=== PATIENT | female | born 1985 | race Caucasian/White ===

== ENCOUNTER 2018-05-22 08:27 | Outpatient (CLI) | payer MEDICAID ==
[~2018-05-22] VITALS: Ht 172.7 cm; Wt 106.6 kg
[2018-05-22] MEDS ORDERED: PREN-53 PO (11:13)
[2018-05-22] MEDS ORDERED: CITA40TA19 PO (11:13)
== END 2018-05-22 11:17 | disposition home or self-care (01) ==
LOC: PREOP 08:27
PROVIDERS: ATTEND Obstetrics & Gynecology
DX: Z01.818 Encounter for other preprocedural examination (principal)

== ENCOUNTER 2018-05-29 06:05 | Inpatient (IN) | payer MEDICAID ==
[~2018-05-29] VITALS: Ht 172.7 cm; Wt 109.8 kg
[~2018-05-29 06:05] MED LIST: CITA40TA19 PO; CITRIC ACID/SOB CIT (BICITRA) 30 ML UDC ONE; FAMOTIDINE 20MG/2ML IV (PEPCID) ONE; LACTATED RINGERS 1,000 ML IV ONE; METOCLOPRAMIDE INJ 10 MG/2 ML (REGLAN) ONE; PREN-53 PO; ceFAZolin 2 GM IV Premixed 50 ML ONE
--- NOTE | 2018-05-29 06:10 | NUR ---
NURYS SAUCEDA presented to unit via ambulation from home, accompanied by SO, FOR REPEAT SECTION. NURYS SAUCEDA weighed, gowned, voided, and to bed. EFHM and TOCO applied, VS taken. NURYS SAUCEDA oriented to bed controls, call light, TV, heat, and A/C controls. Pt. denies leaking of fluid, vaginal bleeding, and confirms movement.
--- OUTSIDE RECORDS SUMMARY | 2018-05-29 06:11 | XMS REPORT ---
Author Author DOROTA IBARRA Organization [facility] Address [address] [place] [address] Care Team Providers Care Mid Level Practitioner Name Role Phone DOROTA IBARRA Unavailable PROBLEMS Type Condition ICD9-CM Code [id number] Code Onset Dates Condition Status SNOMED Code Problem Previous section complicating O34.219 Active 564082062 Problem Attention deficit hyperactivity disorder (ADHD), predominantly inattentive type F90.0 Active 02416538 Problem Moderate episode of recurrent major depressive disorder F33.1 Active [id number] ALLERGIES No Information ENCOUNTERS Encounter Location Date Diagnosis [facility] [id number] [place] [address] 95589- 2796 Jan, [facility] [id number] [place] [address] 84742 -8741 Jan, Sore throat J02.9 [facility] [id number] [place] [address] 11162- 7133 27 Dec, 2017 care in second trimester Z34.92 ; 19 weeks gestation of Z3A.19 and Previous section complicating O34.219 [facility] [id number] [place] [address] 35504- 5667 Dec, [facility] [id number] [place] [address] 07430- 2295 Nov, 12 weeks gestation of Z3A.12 ; First trimester Z34.91 and Previous section complicating O34.219 [facility] [id number] [place] [address] 63287- 0611 Nov, [facility] [id number] [place] [address] 23251- 2627 Nov, [facility] [address] [place] [address] 71201- 9075 Nov, Vaginal discharge N89.8 ; First trimester Z34.91 and 11 weeks gestation of Z3A.11 [facility] [id number] [place] [address] 78122- 7253 Nov, [facility] [id number] [place] [address] 64280- 7180 Nov, [facility] [id number] [place] [address] [id number] Nov, Dental examination Z01.20 [facility] [id number] [place] [address] 61623- 6389 Oct, [facility] [id number] [place] [address] 70426- 6049 Oct, 8 weeks gestation of Z3A.08 ; Normal in multigravida Z34.80 ; First trimester Z34.91 and Previous section complicating O34.219 [facility] [id number] [place] [address] 41396- 6650 Oct, [facility] [id number] [place] [address] 19809- 4844 Oct, Possible Z32.00 [facility] [id number] [place] [address] 59521- 6372 Oct, [facility] [id number] [place] [address] 43811- 2058 Sep, Moderate episode of recurrent major depressive disorder F33.1 [facility] [id number] [place] [address] [id number] Sep, Encounter for dental examination Z01.20 [facility] [id number] [place] [address] 43992 -9059 Jul, Bronchitis J40 [facility] [id number] [place] [address] 76586 -4674 Jul, Seasonal allergic rhinitis, unspecified trigger J30.2 [facility] [address] [place] [address] 81464- 0013 27 Jun, 2017 control counseling Z30.09 [facility] [id number] [place] [address] 95645- 3572 26 Jun, 2017 Attention deficit hyperactivity disorder (ADHD), predominantly inattentive type F90.0 ; control counseling Z30.09 and Moderate episode of recurrent major depressive disorder F33.1 [facility] [id number] [place] [address] 16075- 7291 28 May, 2017 [facility] [id number] [place] [address] 84031 -0879 13 May, 2017 Moderate episode of recurrent major depressive disorder F33.1 [facility] [id number] [place] [address] 70728- 0926 07 May, 2017 Moderate episode of recurrent major depressive disorder F33.1 ; Abnormal cervical Papanicolaou smear, unspecified abnormal pap finding R87.619 and Attention deficit hyperactivity disorder (ADHD), predominantly inattentive type F90.0 [facility] [address] [place] [address] [id number] Feb, Dental examination Z01.20 [facility] [address] [place] [address] 17064- 2129 14 Jul, 2014 [facility] [id number] [place] [address] 06865- 7465 13 Jul, 2014 [facility] [id number] [place] [address] 04175- 7063 August, [facility] [id number] [place] [address] 78988- 9203 Jul, [facility] [address] [place] [address] 16829- 4518 Jun, [facility] [id number] [place] [address] 74971- 7431 Jun, [facility] [address] [facility] [id number] [address]- 7878 Jun, [facility] [address] [facility] [id number], [place] [address]- 4032 Jun, [address] [facility] [id number], [place] [address]- 4970 May, [address] [facility] [id number], [place] [address]- 3437 May, IMMUNIZATIONS No Known Immunizations SOCIAL HISTORY Never Assessed REASON FOR VISIT OB 4wk f/u-awoods PLAN OF CARE Activity Details Follow Up 4 Weeks Reason: VITAL SIGNS Height 68 in 2017-12-05 Weight 192.9 lbs 2017-12-05 Temperature 98.7 degrees Fahrenheit 2017-12-05 Heart Rate 160 bpm 2017-12-05 Respiratory Rate 20 2017-12-05 BMI 29.33 kg/m2 2017-12-05 Blood pressure systolic 126 mmHg 2017-12-05 Blood pressure diastolic 72 mmHg 2017-12-05 MEDICATIONS Medication Instructions Dosage Frequency Start Date End Date Duration Status Doxycycline Hyclate 100 mg 1 tablet by Oral route 2 times per day for 7 days Jun, Not-Taking Lortab 5-500 mg take 1 tablet by oral route every 4 hours as needed for pain Jun, Not-Taking Levofloxacin 500 mg take 1 tablet (500 mg) by oral route once daily for 10 days May, Not-Taking Benadryl Active Ortho Tri-Cyclen (28) 0.18/0.215/0.25 mg-35 mcg Orally Once a day 1 24h May, 30 days Not-Taking Diflucan 150 MG Orally q 72 hrs 1 tablet Nov, Not-Taking Adderall 20 mg take 1 tablet (20 mg) by oral route 2 times per day before breakfast and at noon May, Not-Taking Paxil Not-Taking Celexa 40 mg Orally Once a day 1 tablet 24h May, 30 day(s) Active Orally Once a day 1 tablet 24h 30 days Active Fluoxetine 20 mg take 1 tablet (20 mg) by oral route once daily in the morning May, Not-Taking ProAir HFA 108 (90 Base) MCG/ACT Inhalation every 6 hrs 2 puffs as needed 6h Jul, 7 days Not-Taking Tylenol Active RESULTS Name Result Date Reference Range UA OB DIP (IN HOUSE) 2017-12-05 Glucose neg Protein neg PROCEDURES Procedure Date Ordered Result Body Site URINE-NO MICRO Dec 05, 2017 INSTRUCTIONS MEDICATIONS ADMINISTERED No Known Medications MEDICAL (GENERAL) HISTORY Type Description Date Medical History Clinical Depression Medical History Bipolar traits Medical History ADD Medical History Seasonal allergies Surgical History section 2009 Surgical History Surgery for shattered pinky 2009 Surgical History Tonsilectomy Hospitalization History Spinal Meningitis 2007 Hospitalization History Childbirth
--- OUTSIDE RECORDS SUMMARY | 2018-05-29 06:11 | XMS REPORT ---
Author Author EDITH BELL Organization [facility] Address [address] [place] [address] Care Team Providers Care Fishing Tackle Repairer Name Role Phone BREWSTER EDITH DENNY Unavailable PROBLEMS Type Condition ICD9-CM Code [id number] Code Onset Dates Condition Status SNOMED Code Problem Previous section complicating O34.219 Active 208838960 Problem Attention deficit hyperactivity disorder (ADHD), predominantly inattentive type F90.0 Active 14234044 Problem Moderate episode of recurrent major depressive disorder F33.1 Active 525093257 ALLERGIES No Known Allergies ENCOUNTERS Encounter Location Date Diagnosis [facility] [address] 29944- 3427 Jan, [facility] [id number] [place] [address] 80057- 7665 Jan, Moderate episode of recurrent major depressive disorder F33.1 [facility] [id number] [place] [address] 10193 -7822 Jan, Sore throat J02.9 [facility] [id number] [place] [address] 92211- 7697 Dec, care in second trimester Z34.92 ; 19 weeks gestation of Z3A.19 and Previous section complicating O34.219 [facility] [id number] [place] [address] 27340- 7006 Dec, [facility] [address] 80335- 4528 Nov, 12 weeks gestation of Z3A.12 ; First trimester Z34.91 and Previous section complicating O34.219 [facility] [id number] [place] [address] 64472- 5849 Nov, [facility] [address] [place] [address] 11427- 9697 Nov, [facility] [id number] [place] [address] 77287- 4201 Nov, Vaginal discharge N89.8 ; First trimester Z34.91 and 11 weeks gestation of Z3A.11 [facility] [id number] [place] [address] 78013- 1247 Nov, [facility] [id number] [place] [address] 90918- 7998 Nov, [facility] [id number] [place] [address] [id number] Nov, Dental examination Z01.20 [facility] [id number] [place] [address] 24724- 3974 Oct, [facility] [id number] [place] [address] 52425- 3012 Oct, 8 weeks gestation of Z3A.08 ; Normal in multigravida Z34.80 ; First trimester Z34.91 and Previous section complicating O34.219 [facility] [address] [place] [address] 53727- 1810 Oct, [facility] [address] [place] [address] 47602- 5648 Oct, Possible Z32.00 [facility] [address] [place] [address] 13491- 6339 Oct, [facility] [id number] [place] [address] 95106- 2917 Sep, Moderate episode of recurrent major depressive disorder F33.1 [facility] [address] [place] [address] [id number] Sep, Encounter for dental examination Z01.20 [facility] [address] [place] [address] 17296 -1261 17 Jul, 2017 Bronchitis J40 [facility] [id number] [place] [address] 48840 -4783 02 Jul, 2017 Seasonal allergic rhinitis, unspecified trigger J30.2 [facility] [id number] [place] [address] 07131- 5814 27 Jun, 2017 control counseling Z30.09 [facility] [id number] [place] [address] 04336- 6058 26 Jun, 2017 Attention deficit hyperactivity disorder (ADHD), predominantly inattentive type F90.0 ; control counseling Z30.09 and Moderate episode of recurrent major depressive disorder F33.1 [facility] [id number] [place] [address] 48341- 0126 28 May, 2017 [facility] [id number] [place] [address] 58460 -6929 13 May, 2017 Moderate episode of recurrent major depressive disorder F33.1 [facility] [id number] [place] [address] 88798- 5814 07 May, 2017 Moderate episode of recurrent major depressive disorder F33.1 ; Abnormal cervical Papanicolaou smear, unspecified abnormal pap finding R87.619 and Attention deficit hyperactivity disorder (ADHD), predominantly inattentive type F90.0 [facility] [address] [place] [address] [id number] Feb, Dental examination Z01.20 [id number] [place] [address] 51621- 9828 Jul, [id number] [place] [address] 71660- 1175 Jul, [facility] [id number] [place] [address] 71844- 9120 August, [place] [place] [id number] [place] [address] 57969- 2272 Jul, [facility] [id number] [address]- 5735 Jun, [facility] [address] [address]- 0997 Jun, [facility] [address], [place] [address]- 7274 Jun, [facility] [address] [place] [address] 17755- 4899 Jun, [facility] [address] [address]- 6326 May, [facility] [address] [place] [address]- 0973 May, IMMUNIZATIONS No Known Immunizations SOCIAL HISTORY Never Assessed REASON FOR VISIT Sore throat x 4 days with low grade fever. The patient is 23 weeks and has been exposed to strep.--NATHAN Patiño PLAN OF CARE Activity Details Follow Up prn Reason: VITAL SIGNS Height 68 in 2018-02-03 Weight 204.4 lbs 2018-02-03 Temperature 98.4 degrees Fahrenheit 2018-02-03 Heart Rate 112 bpm 2018-02-03 Respiratory Rate 20 2018-02-03 BMI 31.08 kg/m2 2018-02-03 Blood pressure systolic 120 mmHg 2018-02-03 Blood pressure diastolic 60 mmHg 2018-02-03 MEDICATIONS Medication Instructions Dosage Frequency Start Date End Date Duration Status Doxycycline Hyclate 100 mg 1 tablet by Oral route 2 times per day for 7 days Jun, Not-Taking ProAir HFA 108 (90 Base) MCG/ACT Inhalation every 6 hrs 2 puffs as needed 6h Jul, 7 days Not-Taking Fluoxetine 20 mg take 1 tablet (20 mg) by oral route once daily in the morning May, Not-Taking Lortab 5-500 mg take 1 tablet by oral route every 4 hours as needed for pain Jun, Not-Taking Celexa 40 mg Orally Once a day 1 tablet 24h May, 30 day(s) Active Tylenol Active Levofloxacin 500 mg take 1 tablet (500 mg) by oral route once daily for 10 days May, Not-Taking Paxil Not-Taking Adderall 20 mg take 1 tablet (20 mg) by oral route 2 times per day before breakfast and at noon May, Not-Taking Diflucan 150 MG Orally q 72 hrs 1 tablet 2017 Not-Taking Ortho Tri-Cyclen (28) 0.18/0.215/0.25 mg-35 mcg Orally Once a day 1 24h May, 30 days Not-Taking Benadryl Active Orally Once a day 1 tablet 24h 30 days Active RESULTS Name Result Date Reference Range STREP A (IN HOUSE) 2018-02-03 STREP A negative Control + Lot # [id number] Exp date 2018-09-12 PROCEDURES Procedure Date Ordered Result Body Site STREP A ASSAY W/OPTIC Feb 03, 2018 INSTRUCTIONS MEDICATIONS ADMINISTERED No Known Medications MEDICAL (GENERAL) HISTORY Type Description Date Medical History Clinical Depression Medical History Bipolar traits Medical History ADD Medical History Seasonal allergies Surgical History section 2009 Surgical History Surgery for shattered pinky 2009 Surgical History Tonsilectomy Hospitalization History Spinal Meningitis 2007 Hospitalization History Childbirth
--- OUTSIDE RECORDS SUMMARY | 2018-05-29 06:11 | XMS REPORT ---
Author Author DOROTA IBARRA Organization [facility] Address [address] [place] [address] Care Team Providers Care Occupational Health And Safety Officer Name Role Phone DOROTA IBARRA Unavailable PROBLEMS Type Condition ICD9-CM Code [id number] Code Onset Dates Condition Status SNOMED Code Problem Previous section complicating O34.219 Active 620984373 Problem Attention deficit hyperactivity disorder (ADHD), predominantly inattentive type F90.0 Active 81760473 Problem Moderate episode of recurrent major depressive disorder F33.1 Active 110478668 ALLERGIES No Information ENCOUNTERS Encounter Location Date Diagnosis [facility] [id number] [place] [address] 37712- 8630 Feb, [facility] [id number] [place] [address] 62659- 6917 Jan, 24 weeks gestation of Z3A.24 ; Second trimester Z34.92 ; Previous section complicating O34.219 and Encounter for immunization Z23 [facility] [id number] [place] [address] 57517- 4518 Jan, Moderate episode of recurrent major depressive disorder F33.1 [facility] [id number] [place] [address] 65014 -0742 Jan, Sore throat J02.9 [facility] [id number] [place] [address] 46270- 1735 Dec, care in second trimester Z34.92 ; 19 weeks gestation of Z3A.19 and Previous section complicating O34.219 [facility] [id number] [place] [address] 06107- 7400 Dec, [facility] [id number] [place] [address] 96158- 3432 Nov, 12 weeks gestation of Z3A.12 ; First trimester Z34.91 and Previous section complicating O34.219 [facility] [id number] [place] [address] 32156- 2630 Nov, [facility] [id number] [place] [address] 44155- 0719 Nov, [facility] [id number] [place] [address] 60590- 8644 Nov, Vaginal discharge N89.8 ; First trimester Z34.91 and 11 weeks gestation of Z3A.11 [place] [id number] [place] [address] 53251- 3996 Nov, [facility] [id number] [place] [address] 92845- 9673 Nov, [facility] [address] [id number] Nov, Dental examination Z01.20 [facility] [id number] [place] [address] 57185- 2906 Oct, [facility] [id number] [place] [address] 07481- 2715 Oct, 8 weeks gestation of Z3A.08 ; Normal in multigravida Z34.80 ; First trimester Z34.91 and Previous section complicating O34.219 [facility] [address] [place] [address] 03458- 9810 Oct, [facility] [id number] [place] [address] 51129- 1032 Oct, Possible Z32.00 [facility] [id number] [place] [address] 50075- 4729 Oct, [facility] [id number] [place] [address] 35818- 1580 Sep, Moderate episode of recurrent major depressive disorder F33.1 [facility] [id number] [id number] Sep, Encounter for dental examination Z01.20 [facility] [address] [address]9168 17 Jul, 2017 Bronchitis J40 [facility] [id number] [place] [address] 07600 -6020 02 Jul, 2017 Seasonal allergic rhinitis, unspecified trigger J30.2 [facility] [address] [place] [address] 70389- 4540 27 Jun, 2017 control counseling Z30.09 [facility] [id number] [place] [address] 21376- 4870 Jun, Attention deficit hyperactivity disorder (ADHD), predominantly inattentive type F90.0 ; control counseling Z30.09 and Moderate episode of recurrent major depressive disorder F33.1 [facility] [address], [place] [address]- 9956 28 May, 2017 [facility] [address] [place] [address] 16942 -4172 13 May, 2017 Moderate episode of recurrent major depressive disorder F33.1 [facility] [address] [place] [address] 96057- 2144 07 May, 2017 Moderate episode of recurrent major depressive disorder F33.1 ; Abnormal cervical Papanicolaou smear, unspecified abnormal pap finding R87.619 and Attention deficit hyperactivity disorder (ADHD), predominantly inattentive type F90.0 [facility] [id number] [id number] Feb, Dental examination Z01.20 [facility] [address], [place] [address]- 2483 14 Jul, 2014 [facility] [address] [place] [address] 65814- 7976 Jul, [place] [id number], [place] [address]- 5056 August, [facility] [address], [place] [address]- 8626 Jul, [facility] [address], [place] [address]- 9555 Jun, [facility] [id number] [place] [address] 67346- 6337 Jun, [facility] [address], [place] [address]- 1461 Jun, [facility] [id number] [place] [address] 49701- 6993 Jun, [facility] [id number] [address]- 4216 May, [facility] [address] [place] [address]- 7906 May, IMMUNIZATIONS Vaccine Route Administration Date Status FLULAVAL QUAD 0.5ML (6 MO & UP) 2017 IM Intramuscular Feb 10, 2018 Administered SOCIAL HISTORY Never Assessed REASON FOR VISIT OB 4wk f/u -- nupur bales, feeling extra tired all the time PLAN OF CARE Activity Details Follow Up 4 Weeks Reason: VITAL SIGNS Height 68 in 2018-02-10 Weight 209.0 lbs 2018-02-10 Temperature 98.0 degrees Fahrenheit 2018-02-10 BMI 31.778 kg/m2 2018-02-10 Blood pressure systolic 120 mmHg 2018-02-10 Blood pressure diastolic 80 mmHg 2018-02-10 MEDICATIONS Medication Instructions Dosage Frequency Start Date End Date Duration Status Celexa 40 mg Orally Once a day 1 tablet 24h May, 30 day(s) Active Tylenol Active Orally Once a day 1 tablet 24h 30 days Active Benadryl Active RESULTS Name Result Date Reference Range UA OB DIP (IN HOUSE) 2018-02-10 Glucose neg Protein neg PROCEDURES Procedure Date Ordered Result Body Site URINE-NO MICRO Feb 10, 2018 SINGLE IMMUNIZATION ADMIN Feb 10, 2018 FLULAVAL QUAD 0.5ML (6 MO AND UP) 2017Feb 10, 2018 INSTRUCTIONS MEDICATIONS ADMINISTERED No Known Medications MEDICAL (GENERAL) HISTORY Type Description Date Medical History Clinical Depression Medical History Bipolar traits Medical History ADD Medical History Seasonal allergies Surgical History section 2009 Surgical History Surgery for shattered pinky 2009 Surgical History Tonsilectomy Hospitalization History Spinal Meningitis 2007 Hospitalization History Childbirth
--- OUTSIDE RECORDS SUMMARY | 2018-05-29 06:11 | XMS REPORT ---
Author Author DOROTA IBARRA Organization [facility] Address [address] [place] [address] Care Team Providers Care Pulp Mill Operator Name Role Phone DOROTA IBARRA Unavailable PROBLEMS Type Condition ICD9-CM Code SMS09-AX Code Onset Dates Condition Status SNOMED Code Problem Previous section complicating O34.219 Active 420785331 Problem Attention deficit hyperactivity disorder (ADHD), predominantly inattentive type F90.0 Active 00507480 Problem Moderate episode of recurrent major depressive disorder F33.1 Active 792560118 ALLERGIES No Information ENCOUNTERS Encounter Location Date Diagnosis [facility] [address] [address] Mar, [facility] [id number] [place] [address] 61617- 6284 Feb, [facility] [address] [address]- 2787 Feb, care in second trimester Z34.92 and 28 weeks gestation of Z3A.28 [facility] [id number] [place] [address] 11341- 9867 Jan, 24 weeks gestation of Z3A.24 ; Second trimester Z34.92 ; Previous section complicating O34.219 and Encounter for immunization Z23 [facility] [id number] [place] [address] 01079- 3906 Jan, Moderate episode of recurrent major depressive disorder F33.1 [facility] [id number] [place] [address] 22020 -9652 Jan, Sore throat J02.9 [facility] [address] [address]- 3147 Dec, care in second trimester Z34.92 ; 19 weeks gestation of Z3A.19 and Previous section complicating O34.219 [facility] [id number] [address] 6[address] 20 Dec, 2017 [facility] [address], [place] [address] 5117 23 Nov, 2017 12 weeks gestation of Z3A.12 ; First trimester Z34.91 and Previous section complicating O34.219 [facility] [id number] [place] [address] 05668- 7565 17 Nov, 2017 [facility] [id number] [place] [address] 19512- 4646 Nov, [facility] [id number] [place] [address] 78835- 4138 2017 Vaginal discharge N89.8 ; First trimester Z34.91 and 11 weeks gestation of Z3A.11 [facility] [address], [place] [address] 8489 Nov, [facility] [id number] [place] [address] 59861- 0994 Nov, [facility] [address] [place] [address] [id number] Nov, Dental examination Z01.20 [facility] [address] [place] [address] 51160- 6701 Oct, [facility] [id number] [place] [address] 97222- 6725 Oct, 8 weeks gestation of Z3A.08 ; Normal in multigravida Z34.80 ; First trimester Z34.91 and Previous section complicating O34.219 [facility] [address], [place] [address]- 8661 Oct, [facility] [id number] [place] [address] 11458- 7175 Oct, Possible Z32.00 [place] [id number] [place] [address] 85362- 0471 Oct, [facility] [id number] [place] [address] 30057- 2837 Sep, Moderate episode of recurrent major depressive disorder F33.1 [facility] [id number] [place] [address] [id number] Sep, Encounter for dental examination Z01.20 [facility] [id number] [place] [address] 72792 -3228 Jul, Bronchitis J40 [facility] [place] [id number] [place] [address] 13704 -4204 Jul, Seasonal allergic rhinitis, unspecified trigger J30.2 [place] [id number] [place] [address] 48970- 4316 27 Jun, 2017 control counseling Z30.09 [place] [id number] [place] [address] 92041- 8810 26 Jun, 2017 Attention deficit hyperactivity disorder (ADHD), predominantly inattentive type F90.0 ; control counseling Z30.09 and Moderate episode of recurrent major depressive disorder F33.1 [place] [address] [place] [address] 40533- 5077 28 May, 2017 [facility] [id number] [place] [address] 68492 -0925 13 May, 2017 Moderate episode of recurrent major depressive disorder F33.1 [facility] [address] [place] [address] 87131- 5002 07 May, 2017 Moderate episode of recurrent major depressive disorder F33.1 ; Abnormal cervical Papanicolaou smear, unspecified abnormal pap finding R87.619 and Attention deficit hyperactivity disorder (ADHD), predominantly inattentive type F90.0 [facility] [address] [place] [address] [id number] Feb, Dental examination Z01.20 [facility] [address], [place] [address]- 0756 14 Jul, 2014 [facility] [address], [place] [address] 2546 Jul, [facility] [address] [address]- 3146 August, [facility] [address], [place] [address]- 1216 Jul, [facility] [address], [place] [address]- 1776 Jun, [facility] [address], [place] [address]- 2546 Jun, [facility] [address], [place] [address]- 8306 Jun, [facility] [address], [place] [address]- 4406 Jun, [facility] [address], [place] [address]- 2716 May, [facility] [address], [place] [address]- 2546 May, IMMUNIZATIONS No Known Immunizations SOCIAL HISTORY Never Assessed REASON FOR VISIT FYI PLAN OF CARE VITAL SIGNS MEDICATIONS Unknown Medications RESULTS No Results PROCEDURES No Known procedures INSTRUCTIONS MEDICATIONS ADMINISTERED No Known Medications MEDICAL (GENERAL) HISTORY Type Description Date Medical History Clinical Depression Medical History Bipolar traits Medical History ADD Medical History Seasonal allergies Surgical History section 2009 Surgical History Surgery for shattered pinky 2010 Surgical History Tonsilectomy Hospitalization History Spinal Meningitis 2008 Hospitalization History Childbirth
--- OUTSIDE RECORDS SUMMARY | 2018-05-29 06:11 | XMS REPORT ---
Author Author DOROTA IBARRA Organization [facility] Address [address] [place] [address] Care Team Providers Care E Learning Designer Name Role Phone DOROTA IBARRA Unavailable PROBLEMS Type Condition ICD9-CM Code PCG26-WU Code Onset Dates Condition Status SNOMED Code Problem Previous section complicating O34.219 Active 888051853 Problem Attention deficit hyperactivity disorder (ADHD), predominantly inattentive type F90.0 Active 85952391 Problem Moderate episode of recurrent major depressive disorder F33.1 Active 188342103 ALLERGIES No Information ENCOUNTERS Encounter Location Date Diagnosis [place] [id number] [place] [address] 35811- 8201 Feb, [facility] [address] [address]- 2843 Feb, care in second trimester Z34.92 and 28 weeks gestation of Z3A.28 [place] [id number] [place] [address] 46741- 5376 Jan, 24 weeks gestation of Z3A.24 ; Second trimester Z34.92 ; Previous section complicating O34.219 and Encounter for immunization Z23 [facility] [id number] [place] [address] 38467- 5237 Jan, Moderate episode of recurrent major depressive disorder F33.1 [facility] [id number] [place] [address] 40886 -5076 Jan, Sore throat J02.9 [facility] [id number] [place] [address] 24543- 5899 Dec, care in second trimester Z34.92 ; 19 weeks gestation of Z3A.19 and Previous section complicating O34.219 [facility] [address], [place] [address]- 6889 20 Dec, 2017 [facility] [id number] [place] [address] 97585- 7622 Nov, 12 weeks gestation of Z3A.12 ; First trimester Z34.91 and Previous section complicating O34.219 [facility] [address] [place] [address] 34503- 3091 17 Nov, 2017 [facility] [id number] [place] [address] 61700- 2195 16 Nov, 2017 [facility] [id number] [place] [address] 09937- 5997 Nov, Vaginal discharge N89.8 ; First trimester Z34.91 and 11 weeks gestation of Z3A.11 [place] [address] [place] [address] 72158- 4711 Nov, [facility] [address] [place] [address] 82285- 6069 Nov, [facility] [id number] [place] [address] [id number] Nov, Dental examination Z01.20 [facility] [address], [place] [address]- 9529 Oct, [facility] [address] [place] [address] 69865- 4834 Oct, 8 weeks gestation of Z3A.08 ; Normal in multigravida Z34.80 ; First trimester Z34.91 and Previous section complicating O34.219 [facility] [address] [place] [address] 06364- 4585 10 Oct, 2017 [facility] [address] [place] [address] 02596- 6165 Oct, Possible Z32.00 [facility] [address] [address] 0386 Oct, [facility] [address] [place] [address] 10627- 6254 Sep, Moderate episode of recurrent major depressive disorder F33.1 [facility] [address] [place] [address] [id number] Sep, Encounter for dental examination Z01.20 [facility] [id number] [place] [address] 92397 -6995 17 Jul, 2017 Bronchitis J40 [facility] [place] [id number] [place] [address] 49155 -7068 02 Jul, 2017 Seasonal allergic rhinitis, unspecified trigger J30.2 [place] [id number] [place] [address] 29028- 3381 27 Jun, 2017 control counseling Z30.09 [place] [id number] [place] [address] 03368- 9961 Jun, Attention deficit hyperactivity disorder (ADHD), predominantly inattentive type F90.0 ; control counseling Z30.09 and Moderate episode of recurrent major depressive disorder F33.1 [place] [address] [place] [address] 64581- 5492 28 May, 2017 [facility] [address] [place] [address] 25211 -3393 13 May, 2017 Moderate episode of recurrent major depressive disorder F33.1 [facility] [address] [place] [address] 28980- 9011 07 May, 2017 Moderate episode of recurrent major depressive disorder F33.1 ; Abnormal cervical Papanicolaou smear, unspecified abnormal pap finding R87.619 and Attention deficit hyperactivity disorder (ADHD), predominantly inattentive type F90.0 [facility] [address] [address] Feb, Dental examination Z01.20 [facility] [address] [address]- 4051 14 Jul, 2014 [facility] [id number] [address]- 4914 13 Jul, 2014 [facility] [address], [place] [address]- 0000 August, [facility] [address], [place] [address]- 1984 Jul, [facility] [address], [place] [address]- 3002 Jun, [facility] [address], [place] [address]- 8307 Jun, [facility] [address], [place] [address]- 3597 Jun, [facility] [address], [place] [address]- 0393 Jun, [facility] [address], [place] [address]- 3832 May, [facility] [address], [place] [address]- 7010 May, IMMUNIZATIONS No Known Immunizations SOCIAL HISTORY Never Assessed REASON FOR VISIT Med Refill PLAN OF CARE VITAL SIGNS MEDICATIONS Medication Instructions Dosage Frequency Start Date End Date Duration Status Orally Once a day 1 tablet 24h 30 days Active RESULTS No Results PROCEDURES No Known procedures INSTRUCTIONS MEDICATIONS ADMINISTERED No Known Medications MEDICAL (GENERAL) HISTORY Type Description Date Medical History Clinical Depression Medical History Bipolar traits Medical History ADD Medical History Seasonal allergies Surgical History section 2010 Surgical History Surgery for shattered pinky 2010 Surgical History Tonsilectomy Hospitalization History Spinal Meningitis 2008 Hospitalization History Childbirth
--- OUTSIDE RECORDS SUMMARY | 2018-05-29 06:11 | XMS REPORT ---
Author Author DOROTA IBARRA Organization [facility] Address [address] [place] [address] Care Team Providers Care Other Sports Coach Or Instructor Name Role Phone DOROTA IBARRA Unavailable PROBLEMS Type Condition ICD9-CM Code VFN53-QG Code Onset Dates Condition Status SNOMED Code Problem Previous section complicating O34.219 Active 427827723 Problem Attention deficit hyperactivity disorder (ADHD), predominantly inattentive type F90.0 Active 77056058 Problem Moderate episode of recurrent major depressive disorder F33.1 Active 329671111 ALLERGIES No Information ENCOUNTERS Encounter Location Date Diagnosis [facility] [id number] [place] [address] 98331- 2780 Jan, [facility] [id number] [place] [address] 86810- 9468 Jan, Moderate episode of recurrent major depressive disorder F33.1 [facility] [id number] [place] [address] 89780 -1207 Jan, Sore throat J02.9 [facility] [id number] [place] [address] 13058- 1257 Dec, care in second trimester Z34.92 ; 19 weeks gestation of Z3A.19 and Previous section complicating O34.219 [facility] [address], [place] [address]- 6060 Dec, [facility] [id number] [place] [address] 67692- 7999 Nov, 12 weeks gestation of Z3A.12 ; First trimester Z34.91 and Previous section complicating O34.219 [facility] [id number] [place] [address] 65733- 0921 Nov, [facility] [id number] [place] [address] 16101- 5529 Nov, [facility] [address] 72400- 9424 Nov, Vaginal discharge N89.8 ; First trimester Z34.91 and 11 weeks gestation of Z3A.11 [facility] [address] 50714- 9137 Nov, [facility] [address] 34367- 3751 Nov, [facility] [address] [id number] Nov, Dental examination Z01.20 [facility] [address] 16692- 6041 Oct, [facility] [address] 59489- 2244 Oct, 8 weeks gestation of Z3A.08 ; Normal in multigravida Z34.80 ; First trimester Z34.91 and Previous section complicating O34.219 [facility] [id number] [place] [address] 09113- 7117 Oct, [facility] [id number] [place] [address] 77816- 1561 Oct, Possible Z32.00 [facility] [id number] [place] [address] 87291- 2169 Oct, [facility] [address] 62091- 2909 Sep, Moderate episode of recurrent major depressive disorder F33.1 [facility] [id number] [place] [address] [id number] Sep, Encounter for dental examination Z01.20 [facility] [address] [place] [address] -8653 17 Jul, 2017 Bronchitis J40 [facility] [id number] [place] [address] 83653 -3976 02 Jul, 2017 Seasonal allergic rhinitis, unspecified trigger J30.2 [facility] [id number] [place] [address] 77073- 5729 27 Jun, 2017 control counseling Z30.09 [facility] [id number] [place] [address] 40704- 6884 26 Jun, 2017 Attention deficit hyperactivity disorder (ADHD), predominantly inattentive type F90.0 ; control counseling Z30.09 and Moderate episode of recurrent major depressive disorder F33.1 [facility] [id number] [place] [address] 30705- 5293 28 May, 2017 [facility] [id number] [place] [address] 76573 -1051 13 May, 2017 Moderate episode of recurrent major depressive disorder F33.1 [facility] [id number] [place] [address] 76999- 3441 07 May, 2017 Moderate episode of recurrent major depressive disorder F33.1 ; Abnormal cervical Papanicolaou smear, unspecified abnormal pap finding R87.619 and Attention deficit hyperactivity disorder (ADHD), predominantly inattentive type F90.0 [facility] [address] [place] [address] [id number] Feb, Dental examination Z01.20 [facility] [id number] [place] [address] 28053- 7878 Jul, [facility] [id number] [place] [address] 58190- 7860 Jul, [facility] [id number] [place] [address] 84029- 6575 August, [facility] [id number] [place] [address] 79809- 8366 Jul, [facility] [id number], [place] [address]- 0231 20 Jun, 2011 [facility] [address], [place] [address]- 8124 19 Jun, 2011 [facility] [address], [place] [address]- 3844 16 Jun, 2011 [facility] [address], [place] [address]- 6822 Jun, [facility] [address], [place] [address]- 4225 May, [facility] [address], [place] [address]- 6764 May, IMMUNIZATIONS No Known Immunizations SOCIAL HISTORY Never Assessed REASON FOR VISIT Refill Request PLAN OF CARE VITAL SIGNS MEDICATIONS Medication Instructions Dosage Frequency Start Date End Date Duration Status Celexa 40 mg Orally Once a day 1 tablet 24h May, 30 day(s) Active RESULTS No Results PROCEDURES No Known [...]
--- OUTSIDE RECORDS SUMMARY | 2018-05-29 06:12 | XMS REPORT ---
Author Author DOROTA IBARRA Organization [facility] Address [address] [place] [address] Care Team Providers Care Health Care Law Specialist Name Role Phone DOROTA IBARRA Unavailable PROBLEMS Type Condition ICD9-CM Code [id number] Code Onset Dates Condition Status SNOMED Code Problem Attention deficit hyperactivity disorder (ADHD), predominantly inattentive type F90.0 Active 88665905 Problem Moderate episode of recurrent major depressive disorder F33.1 Active [id number] ALLERGIES No Information ENCOUNTERS Encounter Location Date Diagnosis [place] [address] [address] Dec, [facility] [address] [address] Nov, 12 weeks gestation of Z3A.12 and First trimester Z34.91 [facility] [address] [address]- 99[address] Nov, [facility] [address] 039[address]- [address] Nov, [facility] [address] 9[address]78 Nov, Vaginal discharge N89.8 ; First trimester Z34.91 and Attention deficit hyperactivity disorder (ADHD), predominantly inattentive type F90.0 [facility] [address] [address]- [address] Nov, [facility] [address] [address] Nov, [facility] [address] [id number] Nov, Dental examination Z01.20 [place] [address] [place] [id number] [place] [address] 66184- 2444 Oct, [facility] [address] 8[address]68[address] Oct, 8 weeks gestation of Z3A.08 ; Normal in multigravida Z34.80 and First trimester Z34.91 [place] [address] [place] [id number] [place] [address] 06217- 1036 Oct, [facility] [address] [place] [id number] [place] [address] 44272- 4971 Oct, Possible Z32.00 [place] [address] 26057- 3986 Oct, [facility] [address] [place] [id number] [place] [address] 24426- 8194 Sep, Moderate episode of recurrent major depressive disorder F33.1 [facility] [address] [id number] Sep, Encounter for dental examination Z01.20 [facility] [address] [place] [id number] [place] [address] 30106 -3887 Jul, Bronchitis J40 [facility] [address] [place] [id number] [place] [address] 36524 -5091 Jul, Seasonal allergic rhinitis, unspecified trigger J30.2 [place] [address] [place] [id number] [place] [address] 34381- 7620 Jun, control counseling Z30.09 [facility] [address] [place] [id number] [place] [address] 53992- 1940 Jun, Attention deficit hyperactivity disorder (ADHD), predominantly inattentive type F90.0 ; control counseling Z30.09 and Moderate episode of recurrent major depressive disorder F33.1 [facility] [address] [place] [id number] [place] [address] 05090- 5941 May, [facility] [address] [address] 13 May, 2017 Moderate episode of recurrent major depressive disorder F33.1 [facility] [address] [place] [address] 52712- 2736 07 May, 2017 Moderate episode of recurrent major depressive disorder F33.1 ; Abnormal cervical Papanicolaou smear, unspecified abnormal pap finding R87.619 and Attention deficit hyperactivity disorder (ADHD), predominantly inattentive type F90.0 [facility] [address] [place] [id number] [place] [address] [id number] Feb, Dental examination Z01.20 [facility] [address] [place] [id number] [place] [address] 04332- 6481 14 Jul, 2014 [facility] [address] [place] [id number] [place] [address] 44402- 4470 Jul, [facility] [address] [place] [id number] [place] [address] 83399- 3612 August, [facility] [id number] [place] [address] 24432- 7960 Jul, [facility] [address] [place] [id number] [place] [address] 46898- 0682 Jun, [facility] [address] [address] Jun, [facility] [address] [place] [id number] [place] [address] 77514- 4795 Jun, [facility] [address] [place] [address] 28196- 2318 Jun, [facility] [address] [place] [id number] [place] [address] 12568- 4257 May, [facility] [address] [address] May, IMMUNIZATIONS No Known Immunizations SOCIAL HISTORY Never Assessed REASON FOR VISIT PLAN OF CARE VITAL SIGNS MEDICATIONS Unknown [...]
--- OUTSIDE RECORDS SUMMARY | 2018-05-29 06:12 | XMS REPORT ---
Author Author RISHIMANUEL MARLOW Dong [facility] Address Unknown Care Team Providers Care Manager Banking Name Role Phone MANUEL JAVED Unavailable PROBLEMS Type Condition ICD9-CM Code [id number] Code Onset Dates Condition Status SNOMED Code Problem Attention deficit hyperactivity disorder (ADHD), predominantly inattentive type F90.0 Active 85231129 Problem Moderate episode of recurrent major depressive disorder F33.1 Active [id number] ALLERGIES No Known Allergies ENCOUNTERS Encounter Location Date Diagnosis [facility] [address] [place] [id number] [place] [address] 37857- 2965 Dec, [facility] [address] 37658- 8841 Nov, 12 weeks gestation of Z3A.12 and First trimester Z34.91 [facility] [address] [place] [id number] [place] [address] 02438- 2299 Nov, [facility] [address] [place] [id number] [place] [address] 17971- 6466 Nov, [facility] [address] [place] [id number] [place] [address] 66713- 6312 Nov, Vaginal discharge N89.8 ; First trimester Z34.91 and Attention deficit hyperactivity disorder (ADHD), predominantly inattentive type F90.0 [facility] [address] [place] [id number] [place] [address] 62146- 5464 Nov, [facility] [address] 29624- 5170 Nov, [facility] [address] [place] [id number] [place] [address] [id number] Nov, Dental examination Z01.20 [facility] [address] [place] [address]- 8[address] Oct, [facility] [address] [place] [id number] [place] [address] 30414- 2352 Oct, 8 weeks gestation of Z3A.08 ; Normal in multigravida Z34.80 and First trimester Z34.91 [place] [address] [place] [id number] [place] [address] 25995- 5010 Oct, [place] [address] 80237- 6062 Oct, Possible Z32.00 [place] [address] 43747- 4254 Oct, [place] [address] 86412- 7873 Sep, Moderate episode of recurrent major depressive disorder F33.1 [facility] [address] [id number] Sep, Encounter for dental examination Z01.20 [facility] [address] [address]287 Jul, Bronchitis J40 [facility] [place] [address] 80076 [address]010 Jul, Seasonal allergic rhinitis, unspecified trigger J30.2 [place] [address] [place] [id number] [place] [address] 62501- 6434 Jun, control counseling Z30.09 [place] [address] 44726- 7537 Jun, Attention deficit hyperactivity disorder (ADHD), predominantly inattentive type F90.0 ; control counseling Z30.09 and Moderate episode of recurrent major depressive disorder F33.1 [facility] [address] [place] [id number] [place] [address] 91087- 6005 May, [facility] [address] 39180 -3682 13 May, 2017 Moderate episode of recurrent major depressive disorder F33.1 [facility] [address] [place] [id number] [place] [address] 76115- 1036 07 May, 2017 Moderate episode of recurrent major depressive disorder F33.1 ; Abnormal cervical Papanicolaou smear, unspecified abnormal pap finding R87.619 and Attention deficit hyperactivity disorder (ADHD), predominantly inattentive type F90.0 [facility] [address] [place] [id number] [place] [address] [id number] Feb, Dental examination Z01.20 [facility] [address] [place] [id number] [place] [address] 86096- 1482 14 Jul, 2014 [facility] [address] [place] [id number] [place] [address] 62397- 4628 Jul, [facility] [address] [place] [id number] [place] [address] 75446- 9883 August, [facility] [address] [place] [id number] [place] [address] 00507- 7776 Jul, [facility] [address] [place] [id number] [place] [address] 49751- 0267 Jun, [facility] [address] [place] [id number] [place] [address] 41555- 5493 Jun, [facility] [address] [place] [id number] [place] [address] 20708- 9044 Jun, [facility] [address] [place] [id number] [place] [address] 36703- 8046 Jun, [facility] [address] [place] [id number] [place] [address] 69173- 6596 May, [facility] [address] [place] [id number] [place] [address] 315150- 6576 May, IMMUNIZATIONS No Known Immunizations SOCIAL HISTORY Never Assessed REASON FOR VISIT filling PLAN OF CARE Activity Details Follow Up prn Reason:restorative VITAL SIGNS Height 68 in 2017 Blood pressure systolic 128 mmHg 2017 Blood pressure diastolic 76 mmHg 2017 MEDICATIONS Medication Instructions Dosage Frequency Start Date End Date Duration Status Fluoxetine 20 mg take 1 tablet (20 mg) by oral route once daily in the morning May, Not-Taking Orally Once a day 1 tablet 24h 30 days Active Benadryl Active Levofloxacin 500 mg take 1 tablet (500 mg) by oral route once daily for 10 days May, Not-Taking Celexa 40 mg Orally Once a day 1 tablet 24h May, 30 day(s) Active ProAir HFA 108 (90 Base) MCG/ACT Inhalation every 6 hrs 2 puffs as needed 6h Jul, 7 days Not-Taking Doxycycline Hyclate 100 mg 1 tablet by Oral route 2 times per day for 7 days Jun, Not-Taking Adderall 20 mg take 1 tablet (20 mg) by oral route 2 times per day before breakfast and at noon May, Not-Taking Ortho Tri-Cyclen (28) 0.18/0.215/0.25 mg-35 mcg Orally Once a day 1 24h May, 30 days Not-Taking Paxil Not-Taking Lortab 5-500 mg take 1 tablet by oral route every 4 hours as needed for pain Jun, Not-Taking RESULTS No Results PROCEDURES Procedure Date Ordered Result Body Site SEDATIVE FILLING 2017 INSTRUCTIONS MEDICATIONS ADMINISTERED No Known Medications MEDICAL (GENERAL) HISTORY Type Description Date Medical History Clinical Depression Medical History Bipolar traits Medical History ADD Medical History Seasonal allergies Surgical History section 2009 Surgical History Surgery for shattered pinky 2009 Surgical History Tonsilectomy Hospitalization History Spinal Meningitis 2007 Hospitalization History Childbirth
--- OUTSIDE RECORDS SUMMARY | 2018-05-29 06:12 | XMS REPORT ---
Author Author DOROTA IBARRA Organization [facility] Address [address] [place] [address] Care Team Providers Care J2Ee Application Developer Name Role Phone DOROTA IBARRA Unavailable PROBLEMS Type Condition ICD9-CM Code [id number] Code Onset Dates Condition Status SNOMED Code Problem Previous section complicating O34.219 Active 376107956 Problem Attention deficit hyperactivity disorder (ADHD), predominantly inattentive type F90.0 Active 44756617 Problem Moderate episode of recurrent major depressive disorder F33.1 Active [id number] ALLERGIES No Information ENCOUNTERS Encounter Location Date Diagnosis [facility] [address] [place] [id number] [place] [address] 26196- 6186 Jan, [facility] [address] [place] [id number] [place] [address] 68358 -8786 Jan, Sore throat J02.9 [facility] [address] [place] [id number] [place] [address] 47078- 2195 27 Dec, 2017 care in second trimester Z34.92 ; 19 weeks gestation of Z3A.19 and Previous section complicating O34.219 [facility] [address] [place] [id number] [place] [address] 26135- 5639 Dec, [facility] [address] [place] [id number] [place] [address] 96240- 9168 Nov, 12 weeks gestation of Z3A.12 ; First trimester Z34.91 and Previous section complicating O34.219 [facility] [address] [place] [id number] [place] [address] 64880- 4420 Nov, [facility] [address] [place] [id number] [place] [address] 53599- 1655 Nov, [facility] [address] [place] [address] 90505- 7512 Nov, Vaginal discharge N89.8 ; First trimester Z34.91 and 11 weeks gestation of Z3A.11 [facility] [address] [place] [id number] [place] [address] 21725- 1334 Nov, [facility] [address] [place] [id number] [place] [address] 76360- 2588 Nov, [facility] [address] [place] [id number] [place] [address] [id number] Nov, Dental examination Z01.20 [facility] [address] [place] [id number] [place] [address] 08358- 4922 Oct, [facility] [address] [place] [id number] [place] [address] 88632- 8942 Oct, 8 weeks gestation of Z3A.08 ; Normal in multigravida Z34.80 ; First trimester Z34.91 and Previous section complicating O34.219 [facility] [address] [place] [id number] [place] [address] 00136- 0726 Oct, [facility] [address] [place] [id number] [place] [address] 69318- 3472 Oct, Possible Z32.00 [facility] [address] [place] [id number] [place] [address] 79421- 1356 Oct, [facility] [address] [place] [id number] [place] [address] 14983- 8764 Sep, Moderate episode of recurrent major depressive disorder F33.1 [facility] [address] [place] [id number] [place] [address] [phone] Sep, Encounter for dental examination Z01.20 [facility] [address] [place] [id number] [place] [address] 97007 -2403 Jul, Bronchitis J40 [facility] [address] [place] [id number] [place] [address] 36840 -1851 Jul, Seasonal allergic rhinitis, unspecified trigger J30.2 [facility] [address] [place] [address] 70497- 1560 27 Jun, 2017 control counseling Z30.09 [facility] [address] [place] [id number] [place] [address] 60790- 8615 26 Jun, 2017 Attention deficit hyperactivity disorder (ADHD), predominantly inattentive type F90.0 ; control counseling Z30.09 and Moderate episode of recurrent major depressive disorder F33.1 [facility] [address] [place] [id number] [place] [address] 59845- 5998 28 May, 2017 [facility] [address] [place] [id number] [place] [address] 42956 -5488 13 May, 2017 Moderate episode of recurrent major depressive disorder F33.1 [facility] [address] [place] [id number] [place] [address] 51585- 2071 07 May, 2017 Moderate episode of recurrent major depressive disorder F33.1 ; Abnormal cervical Papanicolaou smear, unspecified abnormal pap finding R87.619 and Attention deficit hyperactivity disorder (ADHD), predominantly inattentive type F90.0 [facility] [address] [place] [address] [id number] Feb, Dental examination Z01.20 [facility] [address] [place] [address] 08951- 6677 14 Jul, 2014 [facility] [address] [place] [id number] [place] [address] 36039- 8501 13 Jul, 2014 [facility] [address] [place] [id number] [place] [address] 30173- 6370 August, [facility] [address] [place] [id number] [place] [address] 32633- 1134 Jul, [facility] [id number] [place] [address] 99021- 7708 Jun, [facility] [address] [place] [id number] [place] [address] 04461- 1881 Jun, [facility] [address] [facility] [id number] [address] Jun, [facility] [address] [facility] [id number] [address]- [address]40 Jun, [place] [address] [facility] [id number] [address]- 9[address] May, [place] [address] [facility] [id number] [address]- [address] May, IMMUNIZATIONS No Known Immunizations SOCIAL HISTORY Never Assessed REASON FOR VISIT [id number] PLAN OF CARE Activity Details Follow Up 4 Weeks Reason: Pending Test URINE DRUG SCREEN (IN HOUSE) VITAL SIGNS Height 68 in 2017-11-07 Weight 190.4 lbs 2017-11-07 Temperature 98.6 degrees Fahrenheit 2017-11-07 Heart Rate 107 bpm 2017-11-07 Respiratory Rate 20 2017-11-07 BMI 28.95 kg/m2 2017-11-07 Blood pressure systolic 110 mmHg 2017-11-07 Blood pressure diastolic 70 mmHg 2017-11-07 MEDICATIONS Medication Instructions Dosage Frequency Start Date End Date Duration Status Ortho Tri-Cyclen (28) 0.18/0.215/0.25 mg-35 mcg Orally Once a day 1 24h May, 30 days Not-Taking Benadryl Active Celexa 40 mg Orally Once a day 1 tablet 24h May, 30 day(s) Active Lortab 5-500 mg take 1 tablet by oral route every 4 hours as needed for pain Jun, Not-Taking Adderall 20 mg take 1 tablet (20 mg) by oral route 2 times per day before breakfast and at noon May, Not-Taking Active ProAir HFA 108 (90 Base) MCG/ACT Inhalation every 6 hrs 2 puffs as needed 6h Jul, 7 days Not-Taking Fluoxetine 20 mg take 1 tablet (20 mg) by oral route once daily in the morning May, Not-Taking Paxil Not-Taking Doxycycline Hyclate 100 mg 1 tablet by Oral route 2 times per day for 7 days Jun, Not-Taking Levofloxacin 500 mg take 1 tablet (500 mg) by oral route once daily for 10 days May, Not-Taking RESULTS No Results PROCEDURES Procedure Date Ordered Result Body Site SPECIMEN HANDLING November 07, 2017 VENIPUNCT, ROUTINE* November 07, 2017 No Charge November 07, 2017 TRICHOMONAS ASSAY W/OPTIC November 07, 2017 ASSAY THYROID STIM HORMONE November 07, 2017 CULTURE, BACTERIA, OTHER November 07, 2017 RUBELLA ANTIBODY November 07, 2017 BLOOD TYPING, RH (D) November 07, 2017 RBC ANTIBODY SCREEN November 07, 2017 COMPLETE CBC W/AUTO DIFF WBC November 07, 2017 BLOOD TYPING, ABO November 07, 2017 INSTRUCTIONS MEDICATIONS ADMINISTERED No Known Medications MEDICAL (GENERAL) HISTORY Type Description Date Medical History Clinical Depression Medical History Bipolar traits Medical History ADD Medical History Seasonal allergies Surgical History section 2009 Surgical History Surgery for shattered pinky 2009 Surgical History Tonsilectomy Hospitalization History Spinal Meningitis 2007 Hospitalization History Childbirth
--- OUTSIDE RECORDS SUMMARY | 2018-05-29 06:12 | XMS REPORT ---
Author Author DOROTA IBARRA Organization [facility] Address [address] [place] [address] Care Team Providers Care Out And Out Cigar Maker Hand Name Role Phone DOROTA IBARRA Unavailable PROBLEMS Type Condition ICD9-CM Code [id number] Code Onset Dates Condition Status SNOMED Code Problem Attention deficit hyperactivity disorder (ADHD), predominantly inattentive type F90.0 Active 92596771 Problem Moderate episode of recurrent major depressive disorder F33.1 Active 542352759 ALLERGIES No Information ENCOUNTERS Encounter Location Date Diagnosis [place] [address] [address] Dec, [facility] [address] [address] Nov, 12 weeks gestation of Z3A.12 and First trimester Z34.91 [facility] [address] 00[address]237 Nov, [facility] [address] 0[address]- [address]30 Nov, [facility] [address] [address]- [address] Nov, Vaginal discharge N89.8 ; First trimester Z34.91 and Attention deficit hyperactivity disorder (ADHD), predominantly inattentive type F90.0 [facility] [address] [address]- [address] Nov, [facility] [address] [address] Nov, [facility] [address] [id number] Nov, Dental examination Z01.20 [place] [address] [place] [id number] [place] [address] 22344- 2133 Oct, [facility] [address] [address]- [address] Oct, 8 weeks gestation of Z3A.08 ; Normal in multigravida Z34.80 and First trimester Z34.91 [place] [address] [place] [id number] [place] [address] 12341- 5051 Oct, [facility] [address] [place] [id number] [place] [address] 27257- 3842 Oct, Possible Z32.00 [place] [address] 9[address]48- 8871 Oct, [facility] [address] [place] [id number] [place] [address] 46347- 2466 Sep, Moderate episode of recurrent major depressive disorder F33.1 [facility] [address] [id number] Sep, Encounter for dental examination Z01.20 [facility] [address] [place] [id number] [place] [address] 18049 -6870 Jul, Bronchitis J40 [facility] [address] [place] [id number] [place] [address] 35131 -4800 Jul, Seasonal allergic rhinitis, unspecified trigger J30.2 [place] [address] [place] [id number] [place] [address] 15184- 6974 Jun, control counseling Z30.09 [facility] [address] [place] [id number] [place] [address] 17554- 3090 Jun, Attention deficit hyperactivity disorder (ADHD), predominantly inattentive type F90.0 ; control counseling Z30.09 and Moderate episode of recurrent major depressive disorder F33.1 [facility] [address] [place] [id number] [place] [address] 76896- 7776 May, [facility] [address], [place] [address] 13 May, 2017 Moderate episode of recurrent major depressive disorder F33.1 [facility] [address] [place] [address] 22296- 4977 07 May, 2017 Moderate episode of recurrent major depressive disorder F33.1 ; Abnormal cervical Papanicolaou smear, unspecified abnormal pap finding R87.619 and Attention deficit hyperactivity disorder (ADHD), predominantly inattentive type F90.0 [facility] [address] [place] [id number] [id number] Feb, Dental examination Z01.20 [facility] [address] [place] [id number] [place] [address] 28851- 2009 14 Jul, 2014 [facility] [address] [place] [id number] [place] [address] 35100- 1020 Jul, [facility] [address] [place] [id number] [place] [address] 83599- 8995 August, [facility] [address] [place] [address] 22013- 8896 Jul, [facility] [address] [place] [id number] [place] [address] 37045- 5143 Jun, [facility] [address], [place] [address] 6[address] Jun, [facility] [address] [place] [id number] [address] 7520 Jun, [facility] [address] [place] [address] 11466- 7806 Jun, [facility] [address] [place] [id number] [place] [address] 19044- 6125 May, [facility] [address] May, IMMUNIZATIONS No Known Immunizations SOCIAL HISTORY Never Assessed REASON FOR VISIT Requests return call PLAN OF CARE VITAL SIGNS MEDICATIONS Unknown [...]
--- OUTSIDE RECORDS SUMMARY | 2018-05-29 06:12 | XMS REPORT ---
Author Author DOROTA IBARRA Organization [facility] Address [address] [place] [address] Care Team Providers Care Colorist Dyer Name Role Phone DOROTA IBARRA Unavailable PROBLEMS Type Condition ICD9-CM Code LYQ29-QG Code Onset Dates Condition Status SNOMED Code Problem Attention deficit hyperactivity disorder (ADHD), predominantly inattentive type F90.0 Active 72465582 Problem Moderate episode of recurrent major depressive disorder F33.1 Active 283543310 ALLERGIES No Information ENCOUNTERS Encounter Location Date Diagnosis [facility] [address] [address]- [address] Dec, [facility] [address] [address]- [address]63 Dec, [facility] [address] 7[address]- 40[address] Nov, 12 weeks gestation of Z3A.12 and First trimester Z34.91 [facility] [address] [place] [id number] [place] [address] 42600- 1698 17 Nov, 2017 [facility] [address] [place] [id number] [place] [address] 59253- 1246 Nov, [facility] [address] [place] [id number] [place] [address] 94804- 8816 Nov, Vaginal discharge N89.8 ; First trimester Z34.91 and Attention deficit hyperactivity disorder (ADHD), predominantly inattentive type F90.0 [facility] [address] [place] [id number] [place] [address] 71184- 0856 Nov, [facility] [address] [place] [id number] [place] [address] 52993- 1435 Nov, [facility] [address] [address] Nov, Dental examination Z01.20 [facility] [address] [place] [id number] [place] [address] 88203- 4608 Oct, [facility] [address] [place] [id number] [place] [address] 34216- 6324 Oct, 8 weeks gestation of Z3A.08 ; Normal in multigravida Z34.80 and First trimester Z34.91 [facility] [address] [place] [address] 97887- 0035 Oct, [facility] [address] [place] [id number] [place] [address] 49335- 5531 Oct, Possible Z32.00 [facility] [address] [place] [id number] [place] [address] 82573- 1123 Oct, [facility] [address] [place] [id number] [place] [address] 88602- 4514 Sep, Moderate episode of recurrent major depressive disorder F33.1 [facility] [address] [place] [address] [id number] Sep, Encounter for dental examination Z01.20 [facility] [address], [place] [address] Jul, Bronchitis J40 [facility] [address] [place] [id number] [place] [address] 10471 -4731 Jul, Seasonal allergic rhinitis, unspecified trigger J30.2 [facility] [address] [place] [address] 74257- 1429 Jun, control counseling Z30.09 [facility] [address] [place] [id number] [place] [address] 05543- 2957 Jun, Attention deficit hyperactivity disorder (ADHD), predominantly inattentive type F90.0 ; control counseling Z30.09 and Moderate episode of recurrent major depressive disorder F33.1 [facility] [address] [address]- 300[address] 28 May, 2017 [facility] [address] [place] [id number] [place] [address] 93282 -1953 13 May, 2017 Moderate episode of recurrent major depressive disorder F33.1 [facility] [address] [place] [id number] [place] [address] 01492- 0997 07 May, 2017 Moderate episode of recurrent major depressive disorder F33.1 ; Abnormal cervical Papanicolaou smear, unspecified abnormal pap finding R87.619 and Attention deficit hyperactivity disorder (ADHD), predominantly inattentive type F90.0 [facility] [address] [place] [id number] [place] [address] [id number] Feb, Dental examination Z01.20 [facility] [address] [place] [id number] [place] [address] 11074- 2436 14 Jul, 2014 [facility] [address] [place] [id number] [place] [address] 94122- 8822 Jul, [facility] [address] [place] [id number] [place] [address] 58014- 5800 August, [facility] [address] [place] [id number] [place] [address] 74953- 0061 Jul, [facility] [address] [place] [address] 20356- 7327 Jun, [facility] [address] [place] [id number] [place] [address] 66827- 1230 Jun, [facility] [address] [place] [address] 85117- 3080 16 Jun, 2011 [facility] [address] [place] [id number] [place] [address] 66198- 7894 Jun, [facility] [address] 08 May, 2011 [facility] [address] [place] [id number] [place] [address] 05572- 0017 May, IMMUNIZATIONS No Known Immunizations SOCIAL HISTORY Never Assessed REASON FOR VISIT Medication Clarification PLAN OF CARE VITAL SIGNS MEDICATIONS Unknown [...]
--- OUTSIDE RECORDS SUMMARY | 2018-05-29 06:12 | XMS REPORT ---
Author Author DOROTA IBARRA Organization [facility] Address [address] [place] [address] Care Team Providers Care Business Teacher Name Role Phone DOROTA IBARRA Unavailable PROBLEMS Type Condition ICD9-CM Code BFM24-HT Code Onset Dates Condition Status SNOMED Code Problem Attention deficit hyperactivity disorder (ADHD), predominantly inattentive type F90.0 Active 04965692 Problem Moderate episode of recurrent major depressive disorder F33.1 Active 066766329 ALLERGIES No Information ENCOUNTERS Encounter Location Date Diagnosis [place] [address] [address] Dec, [facility] [address] 92423- 5668 Nov, 12 weeks gestation of Z3A.12 and First trimester Z34.91 [facility] [address] 19210- 3508 Nov, [facility] [address] 23017- 8017 Nov, [facility] [address] 44351- 4360 Nov, Vaginal discharge N89.8 ; First trimester Z34.91 and Attention deficit hyperactivity disorder (ADHD), predominantly inattentive type F90.0 [facility] [address] 56190- 9937 Nov, [facility] [address] 99944- 8825 Nov, [facility] [address] [id number] Nov, Dental examination Z01.20 [place] [address] [place] [id number] [place] [address] 47965- 4863 Oct, [facility] [address] 41511- 4987 Oct, 8 weeks gestation of Z3A.08 ; Normal in multigravida Z34.80 and First trimester Z34.91 [place] [address] [place] [id number] [place] [address] 05068- 3783 Oct, [facility] [address] [place] [id number] [place] [address] 59454- 1960 Oct, Possible Z32.00 [place] [address] 60648- 7958 Oct, [facility] [address] [place] [id number] [place] [address] 74710- 2046 Sep, Moderate episode of recurrent major depressive disorder F33.1 [facility] [address] [id number] Sep, Encounter for dental examination Z01.20 [facility] [address] [place] [id number] [place] [address] 52470 -5585 Jul, Bronchitis J40 [facility] [address] [place] [id number] [place] [address] 56337 -8156 Jul, Seasonal allergic rhinitis, unspecified trigger J30.2 [place] [address] [place] [id number] [place] [address] 89297- 3794 Jun, control counseling Z30.09 [facility] [address] [place] [id number] [place] [address] 34073- 7428 Jun, Attention deficit hyperactivity disorder (ADHD), predominantly inattentive type F90.0 ; control counseling Z30.09 and Moderate episode of recurrent major depressive disorder F33.1 [facility] [address] [place] [id number] [place] [address] 95714- 2349 May, [facility] [address], [place] [address] 13 May, 2017 Moderate episode of recurrent major depressive disorder F33.1 [facility] [address] [address]- 6169 07 May, 2017 Moderate episode of recurrent major depressive disorder F33.1 ; Abnormal cervical Papanicolaou smear, unspecified abnormal pap finding R87.619 and Attention deficit hyperactivity disorder (ADHD), predominantly inattentive type F90.0 [facility] [address] [address] Feb, Dental examination Z01.20 [facility] [address] [place] [id number] [place] [address] 49987- 5916 14 Jul, 2014 [facility] [address] [place] [id number] [place] [address] 10476- 9313 Jul, [facility] [address] [place] [id number] [place] [address] 59186- 5361 August, [facility] [address] [place] [address] 47512- 7938 Jul, [facility] [address] [place] [id number] [place] [address] 08752- 9047 Jun, [facility] [address], [place] [address]- 7575 Jun, [facility] [address], [place] [address]- 7032 Jun, [facility] [address], [place] [address]- 4564 Jun, [facility] [address] [place] [id number] [place] [address] 113227- 4795 May, [facility] [address] [address]- 1106 May, IMMUNIZATIONS No Known Immunizations SOCIAL HISTORY Never Assessed REASON FOR VISIT request medication PLAN OF CARE VITAL SIGNS MEDICATIONS Medication [...]
--- OUTSIDE RECORDS SUMMARY | 2018-05-29 06:12 | XMS REPORT ---
Author Author AMANDA HERNANDEZ [facility] Address [address] [place] [address] Care Team Providers Care Sweeper Operator Highways Name Role Phone AMANDA HERNANDEZ Unavailable PROBLEMS Type Condition ICD9-CM Code DMG78-EP Code Onset Dates Condition Status SNOMED Code Problem Attention deficit hyperactivity disorder (ADHD), predominantly inattentive type F90.0 Active 74240751 Problem Moderate episode of recurrent major depressive disorder F33.1 Active 240489702 ALLERGIES No Known Allergies ENCOUNTERS Encounter Location Date Diagnosis [place] [address] 26[address]- 7881 Dec, [facility] [address] 99152- 6437 Nov, 12 weeks gestation of Z3A.12 and First trimester Z34.91 [place] [address] 80232- 5410 Nov, [facility] [address] 01718- 9175 Nov, [place] [address] [place] [id number] [place] [address] 75391- 9857 Nov, Vaginal discharge N89.8 ; First trimester Z34.91 and Attention deficit hyperactivity disorder (ADHD), predominantly inattentive type F90.0 [facility] [address] 17716- 6771 Nov, [facility] [address] 35494- 9121 Nov, [facility] [address] [place] [id number] [place] [address] [id number] Nov, Dental examination Z01.20 [place] [address] [place] [address] [place] [address] 89257- 4119 Oct, [facility] [address] [place] [address] [place] [address] 81477- 4707 Oct, 8 weeks gestation of Z3A.08 ; Normal in multigravida Z34.80 and First trimester Z34.91 [place] [address] [place] [id number] [place] [address] 03283- 3049 Oct, [facility] [address] [place] [id number] [place] [address] 85933- 3371 Oct, Possible Z32.00 [place] [address] 90847- 0630 Oct, [facility] [address] [place] [id number] [place] [address] 64542- 6709 Sep, Moderate episode of recurrent major depressive disorder F33.1 [facility] [address] [id number] Sep, Encounter for dental examination Z01.20 [facility] [address] [place] [id number] [place] [address] 17424 -0745 17 Jul, 2017 Bronchitis J40 [facility] [address] [place] [id number] [place] [address] 22532 -6243 Jul, Seasonal allergic rhinitis, unspecified trigger J30.2 [place] [address] [place] [id number] [place] [address] 22626- 6013 Jun, control counseling Z30.09 [facility] [address] [place] [id number] [place] [address] 34409- 5343 Jun, Attention deficit hyperactivity disorder (ADHD), predominantly inattentive type F90.0 ; control counseling Z30.09 and Moderate episode of recurrent major depressive disorder F33.1 [facility] [address] [place] [id number] [place] [address] 70910- 6079 May, [facility] [address], [place] [address] 13 May, 2017 Moderate episode of recurrent major depressive disorder F33.1 [facility] [address] [address]- 4674 07 May, 2017 Moderate episode of recurrent major depressive disorder F33.1 ; Abnormal cervical Papanicolaou smear, unspecified abnormal pap finding R87.619 and Attention deficit hyperactivity disorder (ADHD), predominantly inattentive type F90.0 [facility] [address] [address] Feb, Dental examination Z01.20 [facility] [address] [place] [id number] [place] [address] 83323- 8792 14 Jul, 2014 [facility] [address] [place] [address] [id number] [place] [address] 66776- 6703 Jul, [facility] [address] [place] [id number] [place] [address] 12322- 4359 August, [facility] [address] [place] [address] 12459- 7386 Jul, [facility] [address] [place] [id number] [place] [address] 06049- 2502 Jun, [facility] [address], [place] [address]- 8105 Jun, [facility] [address], [place] [address]- 3488 Jun, [facility] [address], [place] [address]- 0302 Jun, [facility] [address] [place] [address] [id number] [place] [address] 608108- 3570 May, [facility] [address]- 8046 May, IMMUNIZATIONS No Known Immunizations SOCIAL HISTORY Never Assessed REASON FOR VISIT prophy PLAN OF CARE Activity Details Follow Up NURIS Reason:Restorative #19 VITAL SIGNS Blood pressure systolic 128 mmHg 2017-10-09 Blood pressure diastolic 74 mmHg 2017-10-09 MEDICATIONS Medication Instructions Dosage Frequency Start Date End Date Duration Status Ortho Tri-Cyclen (28) 0.18/0.215/0.25 mg-35 mcg Orally Once a day 1 24h May, 30 days Active Celexa 40 mg Orally Once a day 1/2 tab x 1 week then 1 tab daily 24h May 30 day(s) Active Fluoxetine 20 mg take 1 tablet (20 mg) by oral route once daily in the morning May, Not-Taking Paxil Not-Taking ProAir HFA 108 (90 Base) MCG/ACT Inhalation every 6 hrs 2 puffs as needed 6h Jul, 7 days Not-Taking Levofloxacin 500 mg take 1 tablet (500 mg) by oral route once daily for 10 days May, Not-Taking Lortab 5-500 mg take 1 tablet by oral route every 4 hours as needed for pain Jun, Not-Taking Doxycycline Hyclate 100 mg 1 tablet by Oral route 2 times per day for 7 days Jun, Not-Taking Adderall 20 mg take 1 tablet (20 mg) by oral route 2 times per day before breakfast and at noon May, Not-Taking RESULTS No Results PROCEDURES Procedure Date Ordered Result Body Site PROPHYLAXIS - ADULT October 09, 2017 TOPICAL FLUORIDE VARNISH October 09, 2017 COMP ORAL EVALUATION - NEW/EST PT October 09, 2017 INTRAORL-PERIAPICAL 1 FILM 25514 October 09, 2017 BITEWINGS - FOUR FILMS October 09, 2017 INTRAORL-PERIAPICAL EA ADD FILM October 09, 2017 PANORAMIC FILM SEE ALSO CODE 80555 October 09, 2017 INTRAORL-PERIAPICAL EA ADD FILM October 09, 2017 INTRAORL-PERIAPICAL EA ADD FILM October 09, 2017 INTRAORL-PERIAPICAL EA ADD FILM October 09, 2017 INTRAORL-PERIAPICAL EA ADD FILM October 09, 2017 INSTRUCTIONS MEDICATIONS ADMINISTERED No Known Medications MEDICAL (GENERAL) HISTORY Type Description Date Medical History Clinical Depression Medical History Bipolar traits Medical History ADD Medical History Seasonal allergies Surgical History section 2009 Surgical History Surgery for shattered pinky 2009 Surgical History Tonsilectomy Hospitalization History Spinal Meningitis 2007 Hospitalization History Childbirth
--- OUTSIDE RECORDS SUMMARY | 2018-05-29 06:12 | XMS REPORT ---
Author Author DOROTA IBARRA Organization [facility] Address [address] [place] [address] Care Team Providers Care Churn Operator Name Role Phone DOROTA IBARRA Unavailable PROBLEMS Type Condition ICD9-CM Code MXO02-NO Code Onset Dates Condition Status SNOMED Code Problem Previous section complicating O34.219 Active 334080154 Problem Attention deficit hyperactivity disorder (ADHD), predominantly inattentive type F90.0 Active 56228811 Problem Moderate episode of recurrent major depressive disorder F33.1 Active 158765657 ALLERGIES No Known Allergies ENCOUNTERS Encounter Location Date Diagnosis [facility] [id number] [place] [address] 24641- 9223 Jan, [facility] [id number] [place] [address] 35706 -4557 Jan, Sore throat J02.9 [facility] [id number] [place] [address] 98131- 1072 27 Dec, 2017 care in second trimester Z34.92 ; 19 weeks gestation of Z3A.19 and Previous section complicating O34.219 [facility] [id number] [place] [address] 41405- 3756 Dec, [facility] [id number] [place] [address] 66360- 6025 Nov, 12 weeks gestation of Z3A.12 ; First trimester Z34.91 and Previous section complicating O34.219 [facility] [id number] [place] [address] 86146- 1571 17 Nov, 2017 [facility] [id number] [place] [address] 48670- 3185 Nov, [facility] [address] [place] [address] 77878- 7209 Nov, Vaginal discharge N89.8 ; First trimester Z34.91 and 11 weeks gestation of Z3A.11 [facility] [id number] [place] [address] 31948- 0784 Nov, [facility] [id number] [place] [address] 97644- 5971 Nov, [facility] [id number] [place] [address] [phone] Nov, Dental examination Z01.20 [facility] [address] 6[address]22- 3424 Oct, [facility] [id number] [place] [address] 33861- 2488 Oct, 8 weeks gestation of Z3A.08 ; Normal in multigravida Z34.80 ; First trimester Z34.91 and Previous section complicating O34.219 [facility] [id number] [place] [address] 87442- 5567 Oct, [facility] [id number] [place] [address] 67426- 8390 Oct, Possible Z32.00 [facility] [id number] [place] [address] 48923- 4475 Oct, [facility] [id number] [place] [address] 08006- 8477 Sep, Moderate episode of recurrent major depressive disorder F33.1 [facility] [id number] [place] [address] [phone] Sep, Encounter for dental examination Z01.20 [facility] [id number] [place] [address] 61895 -2026 Jul, Bronchitis J40 [facility] [address] 77913 -1524 02 Jul, 2017 Seasonal allergic rhinitis, unspecified trigger J30.2 [facility] [address] [place] [address] 17403- 2613 27 Jun, 2017 control counseling Z30.09 [facility] [id number] [place] [address] 82690- 4639 26 Jun, 2017 Attention deficit hyperactivity disorder (ADHD), predominantly inattentive type F90.0 ; control counseling Z30.09 and Moderate episode of recurrent major depressive disorder F33.1 [facility] [address] [place] [address] 25911- 9734 28 May, 2017 [facility] [id number] [place] [address] 65238 -9052 13 May, 2017 Moderate episode of recurrent major depressive disorder F33.1 [facility] [id number] [place] [address] 31263- 0939 07 May, 2017 Moderate episode of recurrent major depressive disorder F33.1 ; Abnormal cervical Papanicolaou smear, unspecified abnormal pap finding R87.619 and Attention deficit hyperactivity disorder (ADHD), predominantly inattentive type F90.0 [facility] [address] [place] [address] [id number] Feb, Dental examination Z01.20 [facility] [address] [place] [address] 38719- 1860 14 Jul, 2014 [facility] [id number] [place] [address] 70004- 6658 13 Jul, 2014 [facility] [id number] [place] [address] 52440- 7681 August, [facility] [id number] [place] [address] 36006- 8857 Jul, [facility] [address] [place] [address] 97190- 5585 Jun, [facility] [id number] [address]- 4151 Jun, [facility] [address] [address]- 1079 Jun, [facility] [id number] [address]- 0378 Jun, [place] [address] [address]- 8209 May, [place] [address] [address]- 0773 May, IMMUNIZATIONS No Known Immunizations SOCIAL HISTORY Never Assessed REASON FOR VISIT vaginal discharge (ywllow) with foul odor x 1 week -- nupur bales PLAN OF CARE Activity Details Follow Up Keep OB appt Reason: VITAL SIGNS Height 68 in 2017-11-27 Weight 193.4 lbs 2017-11-27 Temperature 98.0 degrees Fahrenheit 2017-11-27 BMI 29.406 kg/m2 2017-11-27 Blood pressure systolic 130 mmHg 2017-11-27 Blood pressure diastolic 76 mmHg 2017-11-27 MEDICATIONS Medication Instructions Dosage Frequency Start Date End Date Duration Status Levofloxacin 500 mg take 1 tablet (500 mg) by oral route once daily for 10 days May, Not-Taking Fluoxetine 20 mg take 1 tablet (20 mg) by oral route once daily in the morning May, Not-Taking ProAir HFA 108 (90 Base) MCG/ACT Inhalation every 6 hrs 2 puffs as needed 6h Jul, 7 days Not-Taking Celexa 40 mg Orally Once a day 1 tablet 24h May, 30 day(s) Active Adderall 20 mg take 1 tablet (20 mg) by oral route 2 times per day before breakfast and at noon May, Not-Taking Benadryl Active Ortho Tri-Cyclen (28) 0.18/0.215/0.25 mg-35 mcg Orally Once a day 1 24h May, 30 days Not-Taking Paxil Not-Taking Lortab 5-500 mg take 1 tablet by oral route every 4 hours as needed for pain Jun, Not-Taking Orally Once a day 1 tablet 24h 30 days Active Doxycycline Hyclate 100 mg 1 tablet by Oral route 2 times per day for 7 days Jun, Not-Taking Diflucan 150 MG Orally q 72 hrs 1 tablet Nov, Active RESULTS No Results PROCEDURES Procedure Date Ordered Result Body Site TRICHOMONAS ASSAY W/OPTIC Nov 27, 2017 Bacterial Vaginosis In House Nov 27, 2017 URINE-NO MICRO Nov 27, 2017 CULTURE, BACTERIA, OTHER Nov 27, 2017 INSTRUCTIONS MEDICATIONS ADMINISTERED No Known Medications MEDICAL (GENERAL) HISTORY Type Description Date Medical History Clinical Depression Medical History Bipolar traits Medical History ADD Medical History Seasonal allergies Surgical History section 2009 Surgical History Surgery for shattered pinky 2009 Surgical History Tonsilectomy Hospitalization History Spinal Meningitis 2007 Hospitalization History Childbirth
--- OUTSIDE RECORDS SUMMARY | 2018-05-29 06:13 | XMS REPORT ---
Author Author DOROTA IBARRA Organization [facility] [place] Address [address] [place] [address] Care Team Providers Care Broadcast Checker Name Role Phone DOROTA IBARRA Unavailable PROBLEMS Type Condition ICD9-CM Code [id number] Code Onset Dates Condition Status SNOMED Code Problem Attention deficit hyperactivity disorder (ADHD), predominantly inattentive type F90.0 Active 72039574 Problem Moderate episode of recurrent major depressive disorder F33.1 Active 307065493 ALLERGIES No Information ENCOUNTERS Encounter Location Date Diagnosis [place] [id number] 35891- 5039 Dec, [facility] [place] [address] 69043- 4180 Nov, 12 weeks gestation of Z3A.12 and First trimester Z34.91 [facility] [place] [address] 54107- 6946 Nov, [facility] [place] [address] 85707- 0890 Nov, [place] [address] 58416- 4692 Nov, Vaginal discharge N89.8 ; First trimester Z34.91 and Attention deficit hyperactivity disorder (ADHD), predominantly inattentive type F90.0 [facility] [place] [address] 99439- 6166 Nov, [facility] [place] [address] 23463- 8740 Nov, [facility] [address] [id number] Nov, Dental examination Z01.20 [place] [id number] [place] [address] 47804- 4730 Oct, [facility] [place] [address] 34639- 2164 Oct, 8 weeks gestation of Z3A.08 ; Normal in multigravida Z34.80 and First trimester Z34.91 [place] [id number] [place] [address] 46981- 4208 Oct, [facility] [place] [id number] [place] [address] 11091- 3937 Oct, Possible Z32.00 [place] [address] 81549- 6814 Oct, [facility] [place] [id number] [place] [address] 57974- 2949 Sep, Moderate episode of recurrent major depressive disorder F33.1 [facility] [address] [id number] Sep, Encounter for dental examination Z01.20 [facility] [id number] [place] [address] 81170 -0317 Jul, Bronchitis J40 [facility] [address] [place], [place] [id number] [place] [address] 26064 -3609 Jul, Seasonal allergic rhinitis, unspecified trigger J30.2 [place] [id number] [place] [address] 98978- 5422 Jun, control counseling Z30.09 [facility] [place] [id number] [place] [address] 41509- 5020 Jun, Attention deficit hyperactivity disorder (ADHD), predominantly inattentive type F90.0 ; control counseling Z30.09 and Moderate episode of recurrent major depressive disorder F33.1 [facility] [place] [id number] [place] [address] 19225- 8720 May, [facility] [address] [address] 13 May, 2017 Moderate episode of recurrent major depressive disorder F33.1 [facility] [place] [address] [place] [address] [phone]- 1311 07 May, 2017 Moderate episode of recurrent major depressive disorder F33.1 ; Abnormal cervical Papanicolaou smear, unspecified abnormal pap finding R87.619 and Attention deficit hyperactivity disorder (ADHD), predominantly inattentive type F90.0 [facility] [address] [id number] Feb, Dental examination Z01.20 [facility] [place] [id number] [place] [address] 05746- 1633 14 Jul, 2014 [facility] [place] [id number] [place] [address] 13030- 3331 Jul, [facility] [place] [id number] [place] [address] 70076- 9211 August, [facility] [place] [address] [place] [address] 32241- 9264 Jul, [facility] [place] [id number] [place] [address] 30543- 0791 Jun, [facility] [place] [address], [place] [address]- 7341 Jun, [facility] [place] [address], [place] [address]- 5432 Jun, [facility] [place] [address], [place] [address]- 2868 Jun, [facility] [place] [id number] [place] [address] 76541- 0331 May, [facility] [place] [address] [address] May, IMMUNIZATIONS No Known Immunizations SOCIAL HISTORY Never Assessed REASON FOR VISIT test (walk-in) PLAN OF CARE VITAL SIGNS MEDICATIONS Medication Instructions Dosage Frequency Start Date End Date Duration Status Celexa 40 mg Orally Once a day 1 tablet 24h May, 30 day(s) Not -Taking ProAir HFA 108 (90 Base) MCG/ACT Inhalation every 6 hrs 2 puffs as needed 6h Jul, 7 days Unknown Fluoxetine 20 mg take 1 tablet (20 mg) by oral route once daily in the morning May, Unknown Adderall 20 mg take 1 tablet (20 mg) by oral route 2 times per day before breakfast and at noon May, Unknown Ortho Tri-Cyclen (28) 0.18/0.215/0.25 mg-35 mcg Orally Once a day 1 24h May, 30 days Not-Taking Levofloxacin 500 mg take 1 tablet (500 mg) by oral route once daily for 10 days May, Unknown Paxil Unknown Lortab 5-500 mg take 1 tablet by oral route every 4 hours as needed for pain Jun, Unknown Doxycycline Hyclate 100 mg 1 tablet by Oral route 2 times per day for 7 days Jun, Unknown RESULTS Name Result Date Reference Range TEST, URINE (IN HOUSE) 2017-10-14 RESULTS POSITIVE Lot # [id number] Control + Exp date 06/12/18 PROCEDURES Procedure Date Ordered Result Body Site URINE TEST October 14, 2017 INSTRUCTIONS MEDICATIONS ADMINISTERED No Known Medications MEDICAL (GENERAL) HISTORY Type Description Date Medical History Clinical Depression Medical History Bipolar traits Medical History ADD Medical History Seasonal allergies Surgical History section 2009 Surgical History Surgery for shattered pinky 2009 Surgical History Tonsilectomy Hospitalization History Spinal Meningitis 2007 Hospitalization History Childbirth
--- OUTSIDE RECORDS SUMMARY | 2018-05-29 06:13 | XMS REPORT ---
Author Author DOROTA IBARRA Organization [facility] Address [address] [place] [address] Care Team Providers Care Community Service Worker Name Role Phone DOROTA IBARRA Unavailable PROBLEMS Type Condition ICD9-CM Code [id number] Code Onset Dates Condition Status SNOMED Code Problem Attention deficit hyperactivity disorder (ADHD), predominantly inattentive type F90.0 Active 20095748 Problem Moderate episode of recurrent major depressive disorder F33.1 Active 590645063 ALLERGIES No Known Allergies ENCOUNTERS Encounter Location Date Diagnosis [place] [address] [address]- [address]68 Nov, [facility] [address] [id number] Nov, Dental examination Z01.20 [facility] [address] 17873- 5971 Oct, [place] [address] 39110- 5933 Oct, 8 weeks gestation of Z3A.08 ; Normal in multigravida Z34.80 and First trimester Z34.91 [place] [address] 52136- 1733 Oct, [facility] [id number] [place] [address] 98192- 5436 Oct, Possible Z32.00 [facility] [address] 06216- 4201 Oct, [facility] [address] 07151- 0642 Sep, Moderate episode of recurrent major depressive disorder F33.1 [facility] [address] [address] 27 Sep, 2017 Encounter for dental examination Z01.20 [facility] [id number] [place] [address] 68823 -9641 17 Jul, 2017 Bronchitis J40 [facility] [id number] [place] [address] 87152 -9677 02 Jul, 2017 Seasonal allergic rhinitis, unspecified trigger J30.2 [facility] [id number] [place] [address] 48941- 8915 27 Jun, [address] [facility] [address] 49978- 7412 26 Jun, 2017 Attention deficit hyperactivity disorder (ADHD), predominantly inattentive type F90.0 ; control counseling Z30.09 and Moderate episode of recurrent major depressive disorder F33.1 [facility] [id number] [place] [address] 37805- 1185 28 May, 2017 [facility] [id number] [place] [address] 93266 -7722 13 May, 2017 Moderate episode of recurrent major depressive disorder F33.1 [facility] [id number] [place] [address] 49296- 0431 07 May, 2017 Moderate episode of recurrent major depressive disorder F33.1 ; Abnormal cervical Papanicolaou smear, unspecified abnormal pap finding R87.619 and Attention deficit hyperactivity disorder (ADHD), predominantly inattentive type F90.0 [facility] [address] [place] [address] [id number] Feb, Dental examination Z01.20 [facility] [id number] [place] [address] 34727- 2901 14 Jul, 2014 [facility] [id number] [place] [address] 67984- 3538 13 Jul, 2014 [facility] [id number] [place] [address] 037831- 3325 August, [facility] [address] [address] Jul, [facility] [address] [address]228 Jun, [facility] [address] [address]- 4764 Jun, [facility] [address] [place] [address] 647115- 9341 Jun, [facility] [address] [address]- 7021 Jun, [facility] [address] [place] [address] 423893- 2060 May, [facility] [address] [address]- 4[address] May, IMMUNIZATIONS No Known Immunizations SOCIAL HISTORY Never Assessed REASON FOR VISIT depression f/u--HenriqueNATHAN, Having trouble focusing when reading and would like to be put back on her ADD medicine while she is back in school , Would like to be on control PLAN OF CARE Activity Details Follow Up has WWE scheduled in 2 months with Sonia Reason: VITAL SIGNS Height 68 in 2017-07-08 Weight 177.3 lbs 2017-07-08 Temperature 98.7 degrees Fahrenheit 2017-07-08 Heart Rate 90 bpm 2017-07-08 Respiratory Rate 2017-07-08 BMI 26.96 kg/m2 2017-07-08 Blood pressure systolic 106 mmHg 2017-07-08 Blood pressure diastolic 82 mmHg 2017-07-08 MEDICATIONS Medication Instructions Dosage Frequency Start Date End Date Duration Status Lortab 5-500 mg take 1 tablet by oral route every 4 hours as needed for pain Jun, Not-Taking Doxycycline Hyclate 100 mg 1 tablet by Oral route 2 times per day for 7 days Jun, Not-Taking Ortho Tri-Cyclen (28) 0.18/0.215/0.25 mg-35 mcg (28) Orally Once a day 1 24h May, 30 days Active Adderall 20 mg take 1 tablet (20 mg) by oral route 2 times per day before breakfast and at noon May, Not-Taking Fluoxetine 20 mg take 1 tablet (20 mg) by oral route once daily in the morning May, Not-Taking Levofloxacin 500 mg take 1 tablet (500 mg) by oral route once daily for 10 days May, Not-Taking Celexa 40 mg Orally Once a day 1/2 tab x 1 week then 1 tab daily 24h May 30 day(s) Active Paxil Not-Taking RESULTS No Results PROCEDURES No Known procedures INSTRUCTIONS MEDICATIONS ADMINISTERED No Known Medications MEDICAL (GENERAL) HISTORY Type Description Date Medical History Clinical Depression Medical History Bipolar traits Medical History ADD Medical History Seasonal allergies Surgical History section 2009 Surgical History Surgery for shattered pinky 2009 Surgical History Tonsilectomy Hospitalization History Spinal Meningitis 2007 Hospitalization History Childbirth
--- OUTSIDE RECORDS SUMMARY | 2018-05-29 06:13 | XMS REPORT ---
Author Author DOROTA IBARRA Organization [facility] Address [address] [place] [address] Care Team Providers Care Manager Entry Name Role Phone DOROTA IBARRA Unavailable PROBLEMS Type Condition ICD9-CM Code [id number] Code Onset Dates Condition Status SNOMED Code Problem Attention deficit hyperactivity disorder (ADHD), predominantly inattentive type F90.0 Active 73568239 Problem Moderate episode of recurrent major depressive disorder F33.1 Active [id number] ALLERGIES No Information ENCOUNTERS Encounter Location Date Diagnosis [facility] [address] [id number] Nov, [facility] [address] [address] Oct, [facility] [address] 64277[address]249 Oct, [facility] [address] 13451- 7297 Oct, Possible Z32.00 [facility] [address] 78393- 1360 Oct, [facility] [address] 46919- 4[address] Sep, Moderate episode of recurrent major depressive disorder F33.1 [facility] [address] [id number] Sep, Encounter for dental examination Z01.20 [facility] [address] [address] Jul, [address]40 [facility] [address] [address]15 [address]2077 Jul, Seasonal allergic rhinitis, unspecified trigger J30.2 [facility] [address] [place] [address] 19107- 1410 27 Jun, 2017 control counseling Z30.09 [facility] [id number] [place] [address] 35753- 8983 26 Jun, 2017 Attention deficit hyperactivity disorder (ADHD), predominantly inattentive type F90.0 ; control counseling Z30.09 and Moderate episode of recurrent major depressive disorder F33.1 [facility] [id number] [place] [address] 74391- 0626 28 May, 2017 [facility] [id number] [place] [address] 97671 -7999 13 May, 2017 Moderate episode of recurrent major depressive disorder F33.1 [facility] [id number] [place] [address] 37410- 9684 07 May, 2017 Moderate episode of recurrent major depressive disorder F33.1 ; Abnormal cervical Papanicolaou smear, unspecified abnormal pap finding R87.619 and Attention deficit hyperactivity disorder (ADHD), predominantly inattentive type F90.0 [facility] [address] [id number] [place] [id number] 27 Feb, 2017 Dental examination Z01.20 [facility] [address] [place] [address] 11074- 6498 14 Jul, 2014 [facility] [id number] [place] [address] 72853- 1198 Jul, [facility] [id number] [place] [address] 11791- 1470 August, [facility] [id number] [place] [address] 39845- 7578 Jul, [facility] [address] [place] [address] 81688- 3395 Jun, [facility] [id number] [place] [address] 64463- 0894 Jun, [facility] [address] [facility] [id number] [address] Jun, [facility] [address] [facility] [id number] [address] 8[address] Jun, [facility] [address] [facility] [id number] [address] 5[address] May, [facility] [address] [facility] [id number] [address] May, IMMUNIZATIONS No Known Immunizations SOCIAL HISTORY Never Assessed REASON FOR VISIT Pharmacy Change PLAN OF CARE VITAL SIGNS MEDICATIONS Medication Instructions Dosage Frequency Start Date End Date Duration Status Ortho Tri-Cyclen (28) 0.18/0.215/0.25 mg-35 mcg Orally Once a day 1 24h May, 30 days Active RESULTS No Results PROCEDURES [...]
--- OUTSIDE RECORDS SUMMARY | 2018-05-29 06:13 | XMS REPORT ---
Author Author DOROTA IBARRA Organization [facility] Address [address] [place] [address] Care Team Providers Care Hog Cooler Name Role Phone DOROTA IBARRA Unavailable PROBLEMS Type Condition ICD9-CM Code RNM26-LC Code Onset Dates Condition Status SNOMED Code Problem Attention deficit hyperactivity disorder (ADHD), predominantly inattentive type F90.0 Active 55852363 Problem Moderate episode of recurrent major depressive disorder F33.1 Active 070553541 ALLERGIES No Known Allergies ENCOUNTERS Encounter Location Date Diagnosis [place] [address] [address] Nov, [facility] [address] [id number] Nov, Dental examination Z01.20 [facility] [address] 75695- 7606 Oct, [place] [address] 30491- 5748 Oct, 8 weeks gestation of Z3A.08 ; Normal in multigravida Z34.80 and First trimester Z34.91 [place] [address] 31285- 8325 Oct, [facility] [id number] [place] [address] 42700- 4336 Oct, Possible Z32.00 [facility] [address] 97867- 0105 Oct, [facility] [address] 51216- 8479 Sep, Moderate episode of recurrent major depressive disorder F33.1 [facility] [address] [id number] 27 Sep, 2017 Encounter for dental examination Z01.20 [facility] [id number] [place] [address] 71556 -6161 17 Jul, 2017 Bronchitis J40 [facility] [id number] [place] [address] 80026 -5632 02 Jul, 2017 Seasonal allergic rhinitis, unspecified trigger J30.2 [facility] [id number] [place] [address] 44762- 7856 27 Jun, 2017 control counseling Z30.09 [facility] [address] 21398- 6491 26 Jun, 2017 Attention deficit hyperactivity disorder (ADHD), predominantly inattentive type F90.0 ; control counseling Z30.09 and Moderate episode of recurrent major depressive disorder F33.1 [facility] [id number] [place] [address] 29303- 3585 28 May, 2017 [facility] [id number] [place] [address] 81876 -1250 13 May, 2017 Moderate episode of recurrent major depressive disorder F33.1 [facility] [id number] [place] [address] 96781- 4086 07 May, 2017 Moderate episode of recurrent major depressive disorder F33.1 ; Abnormal cervical Papanicolaou smear, unspecified abnormal pap finding R87.619 and Attention deficit hyperactivity disorder (ADHD), predominantly inattentive type F90.0 [facility] [address] [place] [address] [id number] Feb, Dental examination Z01.20 [facility] [id number] [place] [address] 08792- 4933 14 Jul, 2014 [facility] [id number] [place] [address] 70015- 9559 13 Jul, 2014 [facility] [id number] [place] [address] 28290- 2546 August, [facility] [address] [place] [address] [id number] Jul, [facility] [address] [address] [id number] Jun, [facility] [address] Jun, [facility] [address] [address]- 1277 Jun, [facility] [address] Jun, [facility] [address] May, [facility] [address] [address] May, IMMUNIZATIONS No Known Immunizations SOCIAL HISTORY Never Assessed REASON FOR VISIT Establish Care--Hermelinda PLAN OF CARE Activity Details Follow Up 2 Months with Sonia clarke Depression with new med Reason: VITAL SIGNS Height 68 in 2017-05-22 Weight 168.8 lbs 2017-05-22 Temperature 99.6 degrees Fahrenheit 2017-05-22 Heart Rate 80 bpm 2017-05-22 Respiratory Rate 20 2017-05-22 BMI 25.66 kg/m2 2017-05-22 Blood pressure systolic 126 mmHg 2017-05-22 Blood pressure diastolic 82 mmHg 2017-05-22 MEDICATIONS Medication Instructions Dosage Frequency Start Date End Date Duration Status Celexa 40 mg Orally Once a day 1/2 tab x 1 week then 1 tab daily 24h May 30 day(s) Active Levofloxacin 500 mg take 1 tablet (500 mg) by oral route once daily for 10 days May, Not-Taking Lortab 5-500 mg take 1 tablet by oral route every 4 hours as needed for pain Jun, Not-Taking Paxil Not-Taking Fluoxetine 20 mg take 1 tablet (20 mg) by oral route once daily in the morning May, Not-Taking Ortho Tri-Cyclen (28) 0.18/0.215/0.25 mg-35 mcg (28) take 1 tablet by oral route once daily May, Active Doxycycline Hyclate 100 mg 1 tablet by Oral route 2 times per day for 7 days Jun, Not-Taking Adderall 20 mg take 1 tablet (20 mg) by oral route 2 times per day before breakfast and at noon May, Not-Taking RESULTS No Results PROCEDURES No Known [...]
--- OUTSIDE RECORDS SUMMARY | 2018-05-29 06:13 | XMS REPORT ---
Author Author HALINA FERNANDO [facility] Address [address] [place] [address] Phone Unavailable Care Team Providers Care Laboratory Associate Name Role Phone HALINA FERNANDO Unavailable Unavailable PROBLEMS Type Condition ICD9-CM Code [id number] Code Onset Dates Condition Status SNOMED Code Problem Attention deficit hyperactivity disorder (ADHD), predominantly inattentive type F90.0 Active 67383273 Problem Moderate episode of recurrent major depressive disorder F33.1 Active [id number] ALLERGIES No Known Allergies ENCOUNTERS Encounter Location Date Diagnosis [facility] [id number] [place] [address] 38126- 3990 Nov, [facility] [address] [id number] Nov, [facility] [id number] [place] [address] 60625- 8993 Oct, [facility] [address] 85508- 1199 Oct, 8 weeks gestation of Z3A.08 ; Normal in multigravida Z34.80 and First trimester Z34.91 [facility] [id number] [place] [address] 23765- 0393 Oct, [facility] [id number] [place] [address] 35152- 9392 Oct, Possible Z32.00 [facility] [id number] [place] [address] 18386- 2485 Oct, [facility] [id number] [place] [address] 51055- 9892 Sep, Moderate episode of recurrent major depressive disorder F33.1 [facility] [address] [id number] Sep, Encounter for dental examination Z01.[address] [facility] [id number] [place] [address] 39898 -7864 17 Jul, 2017 Bronchitis J40 [facility] [id number] [place] [address] 50496 -7643 02 Jul, 2017 Seasonal allergic rhinitis, unspecified trigger J30.2 [facility] [address] 56771- 9974 27 Jun, 2017 control counseling Z30.09 [facility] [address] 26100- 6361 Jun, Attention deficit hyperactivity disorder (ADHD), predominantly inattentive type F90.0 ; control counseling Z30.09 and Moderate episode of recurrent major depressive disorder F33.1 [facility] [address] 83362- 2810 28 May, 2017 [facility] [id number] [place] [address] 16600 -7333 13 May, 2017 Moderate episode of recurrent major depressive disorder F33.1 [facility] [id number] [place] [address] 90512- 2739 07 May, 2017 Moderate episode of recurrent major depressive disorder F33.1 ; Abnormal cervical Papanicolaou smear, unspecified abnormal pap finding R87.619 and Attention deficit hyperactivity disorder (ADHD), predominantly inattentive type F90.0 [facility] [address] [place] [address] [id number] Feb, Dental examination Z01.20 [facility] [id number] [place] [address] 84451- 0391 14 Jul, 2014 [facility] [id number] [place] [address] 24350- 3917 Jul, [facility] [id number] [place] [address] 99705- 2276 August, [facility] [address] [id number] [address]- 9609 Jul, [facility] [address] 244[address] Jun, [facility] [address] [address]- 6206 Jun, [facility] [id number] [place] [address] 07972- 7538 Jun, [facility] [address] [address]- 7998 Jun, [facility] [address] [place] [address] 77236- 1719 May, [facility] [address] [address]- 5456 May, IMMUNIZATIONS No Known Immunizations SOCIAL HISTORY Never Assessed REASON FOR VISIT had appt with dr landaverde on saturday for medication review. on saturday...started vomiting...that has subsided. then she developed sinus drainage. she has missed work and is here tos if she possibly needs an antibiotic. [email or web address] PLAN OF CARE Activity Details Follow Up prn Reason: VITAL SIGNS Height 68 in 2017-07-15 Weight 181.4 lbs 2017-07-15 Temperature 98.2 degrees Fahrenheit 2017-07-15 Heart Rate 84 bpm 2017-07-15 Respiratory Rate 20 2017-07-15 BMI 27.58 kg/m2 2017-07-15 Blood pressure systolic 122 mmHg 2017-07-15 Blood pressure diastolic 72 mmHg 2017-07-15 MEDICATIONS Medication Instructions Dosage Frequency Start Date End Date Duration Status Ortho Tri-Cyclen (28) 0.18/0.215/0.25 mg-35 mcg Orally Once a day 1 24h May, 30 days Active Fluoxetine 20 mg take 1 tablet (20 mg) by oral route once daily in the morning May, Not-Taking Celexa 40 mg Orally Once a day 1/2 tab x 1 week then 1 tab daily 24h May 30 day(s) Active Adderall 20 mg take 1 tablet (20 mg) by oral route 2 times per day before breakfast and at noon May, Not-Taking Lortab 5-500 mg take 1 tablet by oral route every 4 hours as needed for pain Jun, Not-Taking Paxil Not-Taking Levofloxacin 500 mg take 1 tablet (500 mg) by oral route once daily for 10 days May, Not-Taking Doxycycline Hyclate 100 mg 1 tablet by Oral route 2 times per day for 7 days Jun, Not-Taking RESULTS No Results PROCEDURES No Known [...]
--- OUTSIDE RECORDS SUMMARY | 2018-05-29 06:13 | XMS REPORT ---
Author Author DOROTA IBARRA Organization [facility] Address [address] [place] [address] Care Team Providers Care Shuttle Hand Name Role Phone DOROTA IBARRA Unavailable PROBLEMS Type Condition ICD9-CM Code MAP26-PL Code Onset Dates Condition Status SNOMED Code Problem Attention deficit hyperactivity disorder (ADHD), predominantly inattentive type F90.0 Active 00538107 Problem Moderate episode of recurrent major depressive disorder F33.1 Active 879309466 ALLERGIES No Information ENCOUNTERS Encounter Location Date Diagnosis [place] [address] [address]- [address] Dec, [facility] [address] 14597- 8998 Nov, 12 weeks gestation of Z3A.12 and First trimester Z34.91 [facility] [address] 29746- 5859 Nov, [facility] [address] 71642- 4020 Nov, [place] [address] 88338- 0774 Nov, Vaginal discharge N89.8 ; First trimester Z34.91 and Attention deficit hyperactivity disorder (ADHD), predominantly inattentive type F90.0 [facility] [address] 05917- 1204 Nov, [facility] [address] 48313- 7932 Nov, [facility] [address] [id number] Nov, Dental examination Z01.20 [place] [address] [place] [id number] [place] [address] 43260- 3023 Oct, [facility] [address] 31327- 0031 Oct, 8 weeks gestation of Z3A.08 ; Normal in multigravida Z34.80 and First trimester Z34.91 [place] [address] [place] [id number] [place] [address] 79029- 2474 Oct, [facility] [address] [place] [id number] [place] [address] 27880- 7086 Oct, Possible Z32.00 [place] [address] 24255- 8812 Oct, [facility] [address] [place] [id number] [place] [address] 36972- 0939 Sep, Moderate episode of recurrent major depressive disorder F33.1 [facility] [address] [id number] Sep, Encounter for dental examination Z01.20 [facility] [address] [place] [id number] [place] [address] 27603 -6754 Jul, Bronchitis J40 [facility] [address] [place] [id number] [place] [address] 43944 -1153 Jul, Seasonal allergic rhinitis, unspecified trigger J30.2 [place] [address] [place] [id number] [place] [address] 88873- 9493 Jun, control counseling Z30.09 [facility] [address] [place] [id number] [place] [address] 95347- 6684 Jun, Attention deficit hyperactivity disorder (ADHD), predominantly inattentive type F90.0 ; control counseling Z30.09 and Moderate episode of recurrent major depressive disorder F33.1 [facility] [address] [place] [id number] [place] [address] 26026- 2434 May, [facility] [address], [place] [address] 13 May, 2017 Moderate episode of recurrent major depressive disorder F33.1 [facility] [address] [place] [address] [id number]- 4888 07 May, 2017 Moderate episode of recurrent major depressive disorder F33.1 ; Abnormal cervical Papanicolaou smear, unspecified abnormal pap finding R87.619 and Attention deficit hyperactivity disorder (ADHD), predominantly inattentive type F90.0 [facility] [address] [id number] Feb, Dental examination Z01.20 [facility] [address] [place] [id number] [place] [address] 84783- 0798 14 Jul, 2014 [facility] [address] [place] [id number] [place] [address] 50089- 2550 Jul, [facility] [address] [place] [id number] [place] [address] 05077- 9641 August, [facility] [address] [place] [address] 34568- 2777 Jul, [facility] [address] [place] [id number] [place] [address] 87152- 9153 Jun, [facility] [address], [place] [address]- 1433 Jun, [facility] [address], [place] [address]- 1876 Jun, [facility] [address], [place] [address]- 4879 Jun, [facility] [address] [place] [id number] [place] [address] 916517- 3786 May, [facility] [address] 5616 May, IMMUNIZATIONS No Known Immunizations SOCIAL HISTORY Never Assessed REASON FOR VISIT Medication refill request PLAN OF CARE VITAL SIGNS MEDICATIONS Medication [...]
--- OUTSIDE RECORDS SUMMARY | 2018-05-29 06:13 | XMS REPORT ---
Author Author DOROTA IBARRA Organization [facility] Address [address] [place] [address] Care Team Providers Care Boatswains Mate Name Role Phone DOROTA IBARRA Unavailable PROBLEMS Type Condition ICD9-CM Code [id number] Code Onset Dates Condition Status SNOMED Code Problem Attention deficit hyperactivity disorder (ADHD), predominantly inattentive type F90.0 Active 75302605 Problem Moderate episode of recurrent major depressive disorder F33.1 Active [id number] ALLERGIES No Information ENCOUNTERS Encounter Location Date Diagnosis [place] [address] [address] Dec, [facility] [address] [address] Nov, 12 weeks gestation of Z3A.12 and First trimester Z34.91 [facility] [address] [address] Nov, [facility] [address] [address] Nov, [place] [address] [address] Nov, Vaginal discharge N89.8 ; First trimester Z34.91 and Attention deficit hyperactivity disorder (ADHD), predominantly inattentive type F90.0 [facility] [address] [address] Nov, [facility] [address] [address] Nov, [facility] [address] [id number] Nov, Dental examination Z01.20 [place] [address] [place] [id number] [place] [address] Oct, [facility] [address] [address] Oct, 8 weeks gestation of Z3A.08 ; Normal in multigravida Z34.80 and First trimester Z34.91 [place] [address] [place] [id number] [place] [address] Oct, [facility] [address] [place] [id number] [place] [address] Oct, Possible Z32.00 [place] [address] [address] Oct, [facility] [address] [place] [id number] [place] [address] Sep, Moderate episode of recurrent major depressive disorder F33.1 [facility] [address] [id number] Sep, Encounter for dental examination Z01.20 [facility] [address] [place] [id number] [place] [address] Jul, Bronchitis J40 [facility] [address] [place] [id number] [place] [address] Jul, Seasonal allergic rhinitis, unspecified trigger J30.2 [place] [address] [place] [id number] [place] [address] 46892- 5[address] Jun, control counseling Z30.09 [facility] [address] [place] [id number] [place] [address]67[address] Jun, Attention deficit hyperactivity disorder (ADHD), predominantly inattentive type F90.0 ; control counseling Z30.09 and Moderate episode of recurrent major depressive disorder F33.1 [facility] [address] [place] [id number] [place] [address] May, [facility] [address], [place] [address] 13 May, 2017 Moderate episode of recurrent major depressive disorder F33.1 [facility] [address] [place] [address] 07 May, 2017 Moderate episode of recurrent major depressive disorder F33.1 ; Abnormal cervical Papanicolaou smear, unspecified abnormal pap finding R87.619 and Attention deficit hyperactivity disorder (ADHD), predominantly inattentive type F90.0 [facility] [address] [place] [id number] [place] [id number] Feb, Dental examination Z01.20 [facility] [address] [place] [id number] [place] [address] 14 Jul, 2014 [facility] [address] [place] [id number] [place] [address] Jul, [facility] [address] [place] [id number] [place] [address] August, [facility] [id number] [place] [address] Jul, [facility] [address] [place] [id number] [place] [address] 24235- [address] Jun, [facility] [address] [address] Jun, [facility] [address] [place] [id number] [place] [address]689- [address] Jun, [facility] [id number] [place] [address]90- 38[address] Jun, [facility] [address] [place] [id number] [place] [address] May, [facility] [id number] [address] May, IMMUNIZATIONS No Known Immunizations SOCIAL HISTORY [...]
--- OUTSIDE RECORDS SUMMARY | 2018-05-29 06:13 | XMS REPORT ---
Author Author PAGE SWANN [facility] IN [facility] Address [address] [place] [address] Care Team Providers Care Director Of Income Tax Name Role Phone PAGE SWANN Unavailable PROBLEMS Type Condition ICD9-CM Code HIL32-RT Code Onset Dates Condition Status SNOMED Code Problem Attention deficit hyperactivity disorder (ADHD), predominantly inattentive type F90.0 Active [id number] Problem Moderate episode of recurrent major depressive disorder F33.1 Active [id number] ALLERGIES No Known Allergies ENCOUNTERS Encounter Location Date Diagnosis [facility] [address] [address] Nov, [facility] [address] [place] [id number] [place] [phone] Nov, [facility] [address] [address] Oct, [facility] [address] [address] Oct, 8 weeks gestation of Z3A.08 ; Normal in multigravida Z34.80 and First trimester Z34.91 [facility] [address] [place] [id number] [place] [address] Oct, [facility] [address] [address] Oct, Possible Z32.00 [facility] [address] [address] Oct, [facility] [address] [place] [id number] [place] [address]68[address] Sep, Moderate episode of recurrent major depressive disorder F33.1 [facility] [address] [place] [id number] Sep, Encounter for dental examination Z01.20 [facility] [address] [place] [id number] [place] [phone] 17 Jul, 2017 Bronchitis J40 [facility] [address] [id number] [place] [phone] 02 Jul, 2017 Seasonal allergic rhinitis, unspecified trigger J30.2 [facility] [address] [place] [id number] [place] [address] 27 Jun, 2017 control counseling Z30.09 [facility] [address] [address] Jun, Attention deficit hyperactivity disorder (ADHD), predominantly inattentive type F90.0 ; control counseling Z30.09 and Moderate episode of recurrent major depressive disorder F33.1 [facility] [address] [place] [id number] [place] [address]- [address] 28 May, 2017 [facility] [address] [place] [id number] [place] [phone] 13 May, 2017 Moderate episode of recurrent major depressive disorder F33.1 [facility] [address] [place] [id number] [place] [address]- [address] 07 May, 2017 Moderate episode of recurrent major depressive disorder F33.1 ; Abnormal cervical Papanicolaou smear, unspecified abnormal pap finding R87.619 and Attention deficit hyperactivity disorder (ADHD), predominantly inattentive type F90.0 [facility] [address] [place] [id number] [place] [phone] Feb, Dental examination Z01.20 [facility] [address] [place] [id number] [place] [address]- [address] 14 Jul, 2014 [facility] [address] [place] [id number] [place] [address] 8[address]- [address] Jul, [facility] [address] [place] [id number] [place] [address]- [address] August, [facility] [address] [place] [id number] [address] Jul, [facility] [id number] [address] Jun, [facility] [id number] [address] Jun, [facility] [address] [place] [id number] [place] [address] 149640- 3528 Jun, [facility] [address] [place] [address] 61572- 20[address] Jun, [facility] [address] [place] [id number] [place] [address] 6[address]- [address] May, [facility] [id number], [place] [address] May, IMMUNIZATIONS No Known Immunizations SOCIAL HISTORY Never Assessed REASON FOR VISIT chest congestion and cough started 3-4 days ago [facility] PLAN OF CARE Activity Details Follow Up prn Reason: VITAL SIGNS Height 68 in 2017-07-30 Weight 188.0 lbs 2017-07-30 Temperature 96.8 degrees Fahrenheit 2017-07-30 Heart Rate 70 bpm 2017-07-30 Respiratory Rate 20 2017-07-30 BMI 28.58 kg/m2 2017-07-30 Blood pressure systolic 108 mmHg 2017-07-30 Blood pressure diastolic 70 mmHg 2017-07-30 MEDICATIONS Medication Instructions Dosage Frequency Start Date End Date Duration Status Celexa 40 mg Orally Once a day 1/2 tab x 1 week then 1 tab daily 24h May 30 day(s) Active Ortho Tri-Cyclen (28) 0.18/0.215/0.25 mg-35 mcg Orally Once a day 1 24h May, 30 days Active Fluoxetine 20 mg take 1 tablet (20 mg) by oral route once daily in the morning May, Not-Taking ProAir HFA 108 (90 Base) MCG/ACT Inhalation every 6 hrs 2 puffs as needed 6h Jul, 7 days Active Levofloxacin 500 mg take 1 tablet (500 mg) by oral route once daily for 10 days May, Not-Taking Doxycycline Hyclate 100 mg 1 tablet by Oral route 2 times per day for 7 days Jun, Not-Taking Paxil Not-Taking Lortab 5-500 mg take 1 tablet by oral route every 4 hours as needed for pain Jun, Not-Taking Adderall 20 mg take 1 tablet (20 mg) by oral route 2 times per day before breakfast and at noon May, Not-Taking PredniSONE 20 MG Orally Once a day 2 tablet 24h Jul, Jul, 5 days Active RESULTS No Results PROCEDURES No [...]
--- OUTSIDE RECORDS SUMMARY | 2018-05-29 06:14 | XMS REPORT ---
Author Author Ivy Esquivel [facility] Address [address] [facility] [address] [place], [place] [id number] Care Team Providers Care Cloth Folder Machine Name Role Phone Ivy Esquivel PCP Allergies and Adverse Reactions Name Reaction Notes NO KNOWN DRUG ALLERGIES Plan of Treatment Planned Activity Comments Planned Date Planned Time Plan/Goal CHLAMYDIA TRACHOMATIS AMP PROBE 08/15/2016 12:00 AM NEISSERIA GONORRHOEAE AMP PROBE 08/15/2016 12:00 AM ingrown toenail 02/01/2015 10:00 AM Medications Active Name Start Date Estimated Completion Date SIG Comments Sprintec (28) 0.25-35 mg-mcg oral tablet 01/04/2016 TAKE ONE TABLET BY MOUTH ONCE DAILY sertraline 50 mg oral tablet 01/09/2016 TAKE ONE TABLET BY MOUTH ONCE DAILY Sprintec (28) 0.25-35 mg-mcg oral tablet 04/02/2016 TAKE ONE TABLET BY MOUTH ONCE DAILY Sprintec (28) 0.25-35 mg-mcg oral tablet 05/21/2016 TAKE ONE TABLET BY MOUTH ONCE DAILY Sprintec (28) 0.25-35 mg-mcg oral tablet 06/26/2016 TAKE ONE TABLET BY MOUTH ONCE DAILY Sprintec (28) 0.25-35 mg-mcg oral tablet 08/15/2016 TAKE ONE TABLET BY MOUTH ONCE DAILY Sprintec (28) 0.25-35 mg-mcg oral tablet 08/31/2016 TAKE ONE TABLET BY MOUTH ONCE DAILY Adderall 20 mg oral tablet 03/20/2017 take 1 tablet (20 mg) by oral route 2 times per day before breakfast and at noon Name Start Date Expiration Date SIG Comments Prozac 40 mg oral capsule 04/13/2010 take 1 capsule (40 mg) by oral route once daily in the morning amoxicillin 500 mg oral capsule 12/01/2013 12/11/2013 take 1 capsule (500 mg) by oral route 3 times per day for 10 days Paxil 40 mg oral tablet 05/29/2016 07/28/2016 take 1 tablet (40 mg) by oral route once daily for 30 days duplicate Flagyl 500 mg oral tablet 08/15/2016 08/22/2016 take 1 tablet (500 mg) by oral route every 12 hours for 7 days paroxetine HCl 40 mg oral tablet 02/15/2017 02/15/2017 TAKE ONE TABLET BY MOUTH ONCE DAILY FOR 30 DAYS Discontinued Name Start Date Discontinued Date SIG Comments Adderall 30 mg oral tablet 09/03/2013 09/04/2013 take 1 tablet (30 mg) by oral route 2 times per day before breakfast and at noon Vyvanse 30 mg oral capsule 09/04/2013 09/04/2013 take 1 capsule (30 mg) by oral route once daily in the morning for 30 days changed to adderall 30mg one daily Adderall 30 mg oral tablet 09/04/2013 12/01/2013 take 1 tablet (30 mg) by oral route once daily before breakfast albuterol sulfate 90 mcg/actuation inhalation HFA aerosol inhaler 11/05/2013 03/26/2014 inhale 1 - 2 puffs by inhalation route every 6 hours as needed Medrol (William) 4 mg oral tablets,dose pack 11/05/2013 03/26/2014 take as directed cyclobenzaprine 10 mg oral tablet 01/05/2015 11/18/2015 take one-half tablet ( 5 mg) by oral route at bedtime as needed Lamictal 25 mg oral tablet 07/06/2015 11/18/2015 take 1 tablet by oral route daily x7 days then 50mg daily x7 days then 75mg daily x7 days then 4 tablets daily thereafter lamotrigine 100 mg oral tablet 11/07/2015 02/22/2016 TAKE ONE TABLET BY MOUTH ONCE DAILY lamotrigine 100 mg oral tablet 11/07/2015 02/22/2016 TAKE ONE TABLET BY MOUTH ONCE DAILY too expensive without insurance Zoloft 50 mg oral tablet 11/18/2015 02/22/2016 take 1 tablet by oral route daily Sprintec (28) 0.25-35 mg-mcg oral tablet 02/09/2016 02/22/2016 TAKE ONE TABLET BY MOUTH ONCE DAILY Ortho-Cyclen (28) 0.25-35 mg-mcg oral tablet 02/10/2016 05/21/2016 take 1 tablet by oral route once daily sertraline 50 mg oral tablet 05/21/2016 05/29/2016 TAKE ONE TABLET BY MOUTH ONCE DAILY Problem List Description Status Onset ADD Active Anxiety Active Depression Active Attention Deficit Disorder Active 09/04/2013 Recurrent major depressive disorder, in partial remission Active 02/22/2016 Generalized anxiety disorder Active 02/22/2016 Vital Signs Date Time BP-Sys(mm[Hg] BP-Yomaira(mm[Hg]) HR(bpm) RR(rpm) Temp WT HT HC BMI BSA BMI Percentile O2 Sat(%) 03/20/2017 10:00:00 AM 128 mmHg 74 mmHg 87 bpm 18 rpm 97.7 F 177.375 lbs 66 in 28.63 kg/m2 1.94 m2 99 % 12/14/2016 10:24:00 AM 122 mmHg 71 mmHg 83 bpm 18 rpm 98.3 F 162 lbs 66 in 26.1472 kg/m 1.8498 m 99 % 08/15/2016 1:14:00 PM 130 mmHg 74 mmHg 94 bpm 18 rpm 98.6 F 174.5 lbs 66 in 28.16 kg/m2 1.92 m2 100 % 05/29/2016 9:03:00 AM 122 mmHg 68 mmHg 92 bpm 18 rpm 98.6 F 177.375 lbs 66 in 28.6288 kg/m 1.9356 m 98 % 02/22/2016 7:57:00 AM 122 mmHg 64 mmHg 84 bpm 18 rpm 97.6 F 179.125 lbs 66 in 28.91 kg/m2 1.95 m2 100 % 11/18/2015 9:52:00 AM 136 mmHg 70 mmHg 91 bpm 18 rpm 99.2 F 182.125 lbs 66 in 29.3954 kg/m 1.9614 m 100 % 07/21/2015 2:53:00 PM 126 mmHg 72 mmHg 97 bpm 18 rpm 97.7 F 161.125 lbs 66 in 26.01 kg/m2 1.84 m2 100 % 07/06/2015 2:54:00 PM 122 mmHg 70 mmHg 97 bpm 18 rpm 97.2 F 156.25 lbs 66 in 25.2192 kg/m 1.8167 m 97 % 03/24/2015 8:49:00 AM 124 mmHg 78 mmHg 68 bpm 20 rpm 98.2 F 166 lbs 100 % 01/05/2015 1:04:00 PM 84 bpm 20 rpm 99 F 156.4 lbs 66 in 25.2434 kg/m 1.8176 m 100 % 09/21/2014 1:52:00 PM 128 mmHg 82 mmHg 100 bpm 18 rpm 98.2 F 158.4 lbs 66 in 25.57 kg/m2 1.83 m2 100 % 07/30/2014 11:33:00 AM 130 mmHg 80 mmHg 84 bpm 18 rpm 98 F 153 lbs 68 in 23.2633 kg/m 1.8247 m 100 % 06/17/2014 1:02:00 PM 118 mmHg 60 mmHg 90 bpm 18 rpm 97.7 F 156.6 lbs 66 in 25.28 kg/m2 1.82 m2 100 % 03/26/2014 10:37:00 AM 128 mmHg 72 mmHg 70 bpm 20 rpm 97.8 F 160.6 lbs 66 in 25.9213 kg/m 1.8418 m 100 % 12/01/2013 9:57:00 AM 121 mmHg 73 mmHg 84 bpm 18 rpm 97.5 F 158.2 lbs 66 in 25.53 kg/m2 1.83 m2 100 % 11/05/2013 11:10:00 AM 123 mmHg 79 mmHg 86 bpm 20 rpm 97.6 F 159 lbs 66 in 25.663 kg/m 1.8326 m 100 % 09/30/2013 1:36:00 PM 102 mmHg 72 mmHg 75 bpm 18 rpm 98.6 F 155.8 lbs 66 in 25.15 kg/m2 1.81 m2 100 % 09/03/2013 11:28:00 AM 120 mmHg 60 mmHg 98 bpm 20 rpm 97.6 F 149.375 lbs 66 in 24.1095 kg/m 1.7763 m 100 % 04/13/2010 11:12:00 AM 110 mmHg 62 mmHg 80 bpm 164 lbs Social History Name Description Comments Alcohol Use - Rare Tobacco Current every day smoker 11/18/2015 - 09/03/2013 - 1 pack a day History of Procedures Date Ordered Description Order Status 08/15/2016 1:43 PM URINALYSIS AUTO W/O SCOPE Reviewed 08/15/2016 12:00 AM SPECIMEN HANDLING OFFICE-LAB Reviewed 08/15/2016 12:00 AM CYTOPATH C/V THIN LAYER Reviewed 08/15/2016 12:00 AM TISSUE EXAM FOR FUNGI Reviewed 08/15/2016 12:00 AM SMEAR WET MOUNT SALINE/INK Reviewed 08/15/2016 12:00 AM SMEAR WET MOUNT SALINE/INK Reviewed 11/05/2013 12:00 AM BREATHING CAPACITY TEST Reviewed 11/05/2013 12:00 AM CHEST X-RAY 2VW FRONTAL&LATL Reviewed 12/01/2013 12:[address] THORAX W/DYE Reviewed Results Summary Date and Description Results 08/15/2016 1:42 PM WET PREP NO TRICH SEEN CLUE CELLS PRESENT 08/15/2016 1:43 PM Color Ur Lt Yellow Glucose Ur-sCnc Neg Bilirub Ur Ql Strip Neg Ketones Ur Ql Strip Neg Sp Gr Ur Qn 1.015 Hgb Ur Ql Strip Neg pH Ur-LsCnc 7.5 Prot Ur Ql Strip Neg Urobilinogen Ur-mCnc 0.2 Nitrite Ur Ql Strip Neg WBC Est Ur Ql Strip Neg History Of Immunizations Not available. History of Past Illness Name Date of Onset Comments ADD Anxiety Depression Attention Deficit Disorder 09/04/2013 Depressive Disorder Apr 13 2010 11:12AM General Medical Exam, Adult Apr 13 2010 11:12AM Recurrent major depressive disorder, in partial remission 02/22/2016 Generalized anxiety disorder 02/22/2016 Anxiety Disorder Sep 03 2013 11:29AM Depressive Disorder Sep 03 2013 11:29AM Attention Deficit Disorder Sep 03 2013 11:29AM Attention Deficit Hyperactivity Disorder Sep 30 2013 1:41PM Cough Nov 05 2013 11:13AM Tobacco abuse Nov 05 2013 11:13AM Chest pain Nov 05 2013 11:13AM Hemoptysis Dec 01 2013 9:59AM Mass of left chest wall Dec 01 2013 9:59AM Tobacco abuse Dec 01 2013 9:59AM Upper respiratory infection Dec 01 2013 9:59AM Chronic cough Dec 01 2013 9:59AM Attention Deficit Hyperactivity Disorder Mar 26 2014 10:36AM Attention Deficit Hyperactivity Disorder Jun 17 2014 1:04PM Depressive Disorder Jun 17 2014 1:04PM Seborrheic Keratosis Jul 30 2014 11:34AM Attention Deficit Hyperactivity Disorder Sep 21 2014 1:54PM Depressive Disorder Sep 21 2014 1:54PM Attention Deficit Hyperactivity Disorder Jan 05 2015 1:07PM Depressive Disorder Jan 05 2015 1:07PM Attention Deficit Hyperactivity Disorder Mar 24 2015 8:51AM Depressive Disorder Mar 24 2015 8:51AM Muscle soreness Mar 24 2015 8:51AM Eyelashes sparse Mar 24 2015 8:51AM Attention deficit disorder Jul 06 2015 2:56PM Anxiety Jul 06 2015 2:56PM Depression Jul 06 2015 2:56PM Attention deficit disorder Jul 21 2015 2:54PM Anxiety Jul 21 2015 2:54PM Depression Jul 21 2015 2:54PM Attention deficit disorder Nov 18 2015 9:53AM Depression Nov 18 2015 9:53AM Attention deficit disorder Feb 22 2016 8:00AM Generalized anxiety disorder Feb 22 2016 8:00AM Recurrent major depressive disorder, in partial remission Feb 22 2016 8:00AM Attention Deficit Disorder May 29 2016 9:05AM Generalized anxiety disorder May 29 2016 9:05AM Moderate episode of recurrent major depressive disorder May 29 2016 9:05AM Routine gynecological examination Aug 15 2016 1:16PM Vaginal itching Aug 15 2016 1:16PM Dysuria Aug 15 2016 1:16PM Attention Deficit Disorder Dec 14 2016 10:26AM Generalized anxiety disorder Dec 14 2016 10:26AM Recurrent major depressive disorder, in partial remission Dec 14 2016 10:26AM Attention Deficit Disorder Mar 20 2017 10:01AM Generalized anxiety disorder Mar 20 2017 10:01AM Payers Insurance Name Company Name Plan Name Plan Number Policy Number Policy Group Number Start Date [facility] [id number] N/A [facility] [id number] N/A [facility] [id number] August [facility] [id number] N/A History of Encounters Visit Date Visit Type Provider 03/20/2017 Office visit Ivy Esquivel TITLE I MATH TUTOR 12/14/2016 Office visit Ivy Esquivel TITLE I MATH TUTOR 08/15/2016 Office visit Ivy Esquivel TITLE I MATH TUTOR 05/29/2016 Office visit Ivy Esquivel TITLE I MATH TUTOR 02/22/2016 Office visit Ivy Esquivel TITLE I MATH TUTOR 11/18/2015 Office visit Ivy Esquivel TITLE I MATH TUTOR 07/21/2015 Office visit Ivy Esquivel TITLE I MATH TUTOR 07/06/2015 Office visit Ivy Esquivel TITLE I MATH TUTOR 03/24/2015 Office visit Yvonne Lang TITLE I MATH TUTOR 01/05/2015 Office visit Yvonne Lang TITLE I MATH TUTOR 09/21/2014 Office visit Yvonne Lang TITLE I MATH TUTOR 07/30/2014 Office visit MISHA BOWLES 06/17/2014 Office visit Yvonne Lang TITLE I MATH TUTOR 03/26/2014 Office visit Yvonne Lang TITLE I MATH TUTOR 12/01/2013 Office visit Yvonne Lang TITLE I MATH TUTOR 11/05/2013 Office visit Yvonne Lang TITLE I MATH TUTOR 09/30/2013 Office visit Yvonne Lang TITLE I MATH TUTOR 09/03/2013 Office visit MISHA BOWLES 04/13/2010 Office visit Misha Coreas PA-C
--- OUTSIDE RECORDS SUMMARY | 2018-05-29 06:14 | XMS REPORT ---
Author Author Ivy Esquivel [facility] Address [address] [place], [place] [id number] Care Team Providers Care Drying Room Attendant Name Role Phone Ivy Esquivel PCP Unavailable Allergies and Adverse Reactions Name Reaction Notes NO KNOWN DRUG ALLERGIES Plan of Treatment Planned Activity Comments Planned Date Planned Time Plan/Goal BREATHING CAPACITY TEST 11/05/2013 12:[address] THORAX W/DYE 12/01/2013 12:00 AM ingrown toenail 02/01/2015 10:00 AM Medications Active Name Start Date Estimated Completion Date SIG Comments cyclobenzaprine 10 mg oral tablet 01/05/2015 take one-half tablet (5 mg) by oral route at bedtime as needed Lamictal 25 mg oral tablet 07/06/2015 take 1 tablet by oral route daily x7 days then 50mg daily x7 days then 75mg daily x7 days then 4 tablets daily thereafter Zoloft 50 mg oral tablet 07/21/2015 take 1 tablet by oral route daily Ortho-Cyclen (28) 0.25-35 mg-mcg oral tablet 07/21/2015 take 1 tablet by oral route once daily Adderall 20 mg oral tablet 08/29/2015 take 1 tablet (20 mg) by oral [...] 3 times per day for 10 days Discontinued Name Start Date Discontinued Date SIG [...] tablets,dose pack 11/05/2013 03/26/2014 take as directed Problem List Description Status Onset ADD Active Anxiety Active Depression Active Attention deficit disorder Active 09/04/2013 Vital Signs Date Time BP-Sys(mm[Hg] BP-Yomaira(mm[Hg]) HR(bpm) RR(rpm) Temp WT HT HC BMI BSA BMI Percentile O2 Sat(%) 07/21/2015 2:53:00 PM 126 mmHg 72 mmHg [...] - Rare Tobacco Current every day smoker 09/03/2013 - 1 pack a day History of Procedures Date Ordered Description Order Status 11/05/2013 12:00 AM CHEST X-RAY 2VW FRONTAL&LATL Returned Results Summary Not available. History Of Immunizations Not available. History of Past Illness Name Date of Onset Comments ADD Anxiety Depression Attention deficit disorder 09/04/2013 Depressive Disorder Apr 13 2010 11:12AM General Medical Exam, Adult Apr 13 2010 11:12AM Anxiety Disorder Sep 03 2013 11:29AM Depressive [...] 2015 2:54PM Depression Jul 21 2015 2:54PM Payers Insurance Name Company Name Plan Name Plan Number Policy Number Policy Group Number Start Date [facility] [id number] N/A [facility] [id number] N/A [facility] [id number] August History of Encounters Visit Date Visit Type Provider 07/21/2015 Office visit Ivy Esquivel ESL INSTRUCTOR 07/06/2015 Office visit Ivy Esquivel ESL INSTRUCTOR 03/24/2015 Office visit Yvonne Lang ESL INSTRUCTOR 01/05/2015 Office visit Yvonne Lang ESL INSTRUCTOR 09/21/2014 Office visit Yvonne Lang ESL INSTRUCTOR 07/30/2014 Office visit MISHA BOWLES 06/17/2014 Office visit Yvonne Lang ESL INSTRUCTOR 03/26/2014 Office visit Yvonne Lang ESL INSTRUCTOR 12/01/2013 Office visit Yvonne Lang ESL INSTRUCTOR 11/05/2013 Office visit Yvonne Lang ESL INSTRUCTOR 09/30/2013 Office visit Yvonne Lang ESL INSTRUCTOR 09/03/2013 Office visit MISHA BOWLES 04/13/2010 Office visit Misha Coreas PA-C
--- OUTSIDE RECORDS SUMMARY | 2018-05-29 06:14 | XMS REPORT ---
Author Author Ivy Esquivel [facility] Address [address] [place], [place] [id number] Care Team Providers Care Drill Runner Helper Name Role Phone Ivy Esquivel PCP Unavailable Allergies and Adverse Reactions Name Reaction Notes NO KNOWN DRUG ALLERGIES Plan of Treatment Planned Activity Comments Planned Date Planned Time Plan/Goal ingrown toenail 02/01/2015 10:00 AM Medications Active [...] TAKE ONE TABLET BY MOUTH ONCE DAILY Paxil 40 mg oral tablet 05/29/2016 07/28/2016 take 1 tablet (40 mg) by oral route once daily for 30 days Adderall 20 mg oral tablet 05/29/2016 take 1 tablet (20 mg) by oral [...] HC BMI BSA BMI Percentile O2 Sat(%) 05/29/2016 9:03:00 AM 122 mmHg 68 mmHg 92 bpm 18 rpm 98.6 F 177.375 lbs 66 in 28.63 kg/m2 1.94 m2 98 % 02/22/2016 7:57:00 AM 122 mmHg 64 mmHg 84 bpm 18 rpm 97.6 F 179.125 lbs 66 in 28.9112 kg/m 1.9451 m 100 % 11/18/2015 9:52:00 AM 136 mmHg 70 mmHg 91 bpm 18 rpm 99.2 F 182.125 lbs 66 in 29.40 kg/m2 1.96 m2 100 % 07/21/2015 2:53:00 PM 126 mmHg 72 mmHg 97 bpm 18 rpm 97.7 F 161.125 lbs 66 in 26.006 kg/m 1.8448 m 100 % 07/06/2015 2:54:00 PM 122 mmHg 70 mmHg 97 bpm 18 rpm 97.2 F 156.25 lbs 66 in 25.22 kg/m2 1.82 m2 97 % 03/24/2015 8:49:00 AM 124 mmHg 78 mmHg 68 bpm 20 rpm 98.2 F 166 lbs 100 % 01/05/2015 1:04:00 PM 84 bpm 20 rpm 99 F 156.4 lbs 66 in 25.24 kg/m2 1.82 m2 100 % 09/21/2014 1:52:00 PM 128 mmHg 82 mmHg 100 bpm 18 rpm 98.2 F 158.4 lbs 66 in 25.5662 kg/m 1.8291 m 100 % 07/30/2014 11:33:00 AM 130 mmHg 80 mmHg 84 bpm 18 rpm 98 F 153 lbs 68 in 23.2633 kg/m 1.82 m2 100 % 06/17/2014 1:02:00 PM 118 mmHg 60 mmHg 90 bpm 18 rpm 97.7 F 156.6 lbs 66 in 25.28 kg/m2 1.8187 m 100 % 03/26/2014 10:37:00 AM 128 mmHg 72 mmHg 70 bpm 20 rpm 97.8 F 160.6 lbs 66 in 25.9213 kg/m 1.84 m2 100 % 12/01/2013 9:57:00 AM 121 mmHg 73 mmHg 84 bpm 18 rpm 97.5 F 158.2 lbs 66 in 25.53 kg/m2 1.828 m 100 % 11/05/2013 11:10:00 AM 123 mmHg 79 mmHg 86 bpm 20 rpm 97.6 F 159 lbs 66 in 25.663 kg/m 1.83 m2 100 % 09/30/2013 1:36:00 PM 102 mmHg 72 mmHg 75 bpm 18 rpm 98.6 F 155.8 lbs 66 in 25.15 kg/m2 1.8141 m 100 % 09/03/2013 11:28:00 AM 120 mmHg 60 mmHg 98 bpm 20 rpm 97.6 F 149.375 lbs 66 in 24.1095 kg/m 1.78 m2 100 % 04/13/2010 11:12:00 AM 110 mmHg 62 mmHg 80 bpm 164 lbs Social History Name Description Comments Alcohol Use - Rare Tobacco Current every day smoker 11/18/2015 - 09/03/2013 - 1 pack a day History of Procedures Date Ordered Description Order Status 11/05/2013 12:00 AM BREATHING CAPACITY TEST Reviewed 11/05/2013 12:00 AM CHEST X-RAY 2VW FRONTAL&LATL Reviewed 12/01/2013 12:[address] THORAX W/DYE Reviewed Results Summary Not available. History Of Immunizations [...] major depressive disorder May 29 2016 9:05AM Payers Insurance Name Company Name Plan Name Plan Number Policy Number Policy Group Number Start Date Ariadne Green [facility] [id number] N[facility] [id number] August [facility] [id number] N/A History of Encounters Visit Date Visit Type Provider 05/29/2016 Office visit Ivy Esquivel SHIP MATE 02/22/2016 Office visit Ivy Esquivel SHIP MATE 11/18/2015 Office visit Ivy Esquivel SHIP MATE 07/21/2015 Office visit Ivy Esquivel SHIP MATE 07/06/2015 Office visit Ivy Esquivel SHIP MATE 03/24/2015 Office visit Yvonne Lang SHIP MATE 01/05/2015 Office visit Yvonne Lang SHIP MATE 09/21/2014 Office visit Yvonne Lang SHIP MATE 07/30/2014 Office visit MISHA BOWLES 06/17/2014 Office visit Yvonne Lang SHIP MATE 03/26/2014 Office visit Yvonne Lang SHIP MATE 12/01/2013 Office visit Yvonne Lang SHIP MATE 11/05/2013 Office visit Yvonne Lang SHIP MATE 09/30/2013 Office visit Yvonne Lang SHIP MATE 09/03/2013 Office visit MISHA BOWLES 04/13/2010 Office visit Misha Coreas PA-C
--- OUTSIDE RECORDS SUMMARY | 2018-05-29 06:15 | XMS REPORT ---
Author Author Ivy Esquivel [facility] Address [address] [place], [place] [id number] Care Team Providers Care Mail Clerk Name Role Phone Ivy Esquivel PCP Unavailable Allergies and Adverse Reactions Name Reaction Notes NO KNOWN DRUG ALLERGIES Plan of Treatment Planned Activity Comments Planned Date Planned Time Plan/Goal BREATHING CAPACITY TEST 11/05/2013 12:[address] THORAX W/DYE 12/01/2013 12:00 AM ingrown toenail 02/01/2015 10:00 AM Medications Active Name Start Date Estimated Completion Date SIG Comments Ortho-Cyclen (28) 0.25-35 mg-mcg oral tablet 07/21/2015 take 1 tablet by oral route once daily lamotrigine 100 mg oral tablet 11/07/2015 TAKE ONE TABLET BY MOUTH ONCE DAILY Zoloft 50 mg oral tablet 11/18/2015 take 1 tablet by oral route daily Sprintec (28) 0.25-35 mg-mcg oral tablet 01/04/2016 TAKE ONE TABLET BY MOUTH ONCE DAILY sertraline 50 mg oral tablet 01/09/2016 TAKE ONE TABLET BY MOUTH ONCE DAILY Adderall 20 mg oral tablet 01/19/2016 take 1 tablet (20 mg) by oral [...] x7 days then 4 tablets daily thereafter Problem List Description Status Onset ADD Active Anxiety Active Depression Active Attention deficit disorder Active 09/04/2013 Vital Signs Date Time BP-Sys(mm[Hg] BP-Yomaira(mm[Hg]) HR(bpm) RR(rpm) Temp WT HT HC BMI BSA BMI Percentile O2 Sat(%) 11/18/2015 9:52:00 AM 136 mmHg 70 mmHg [...] F 156.4 lbs 66 in 25.2434 kg/m 1.82 m2 100 % 09/21/2014 1:52:00 PM 128 mmHg 82 mmHg 100 bpm 18 rpm 98.2 F 158.4 lbs 66 in 25.57 kg/m2 1.8291 m 100 % 07/30/2014 11:33:00 AM [...] 2015 9:53AM Depression Nov 18 2015 9:53AM Payers Insurance Name Company Name Plan Name Plan Number Policy Number Policy Group Number Start Date [facility] [id number] N/A [facility] [id number] August [facility] [id number] N/A History of Encounters Visit Date Visit Type Provider 11/18/2015 Office visit Ivy Esquivel PUNCH FINISHER 07/21/2015 Office visit Ivy Esquivel PUNCH FINISHER 07/06/2015 Office visit Ivy Esquivel PUNCH FINISHER 03/24/2015 Office visit vYonne Lang PUNCH FINISHER 01/05/2015 Office visit Yvonne Lang PUNCH FINISHER 09/21/2014 Office visit Yvonne Lang PUNCH FINISHER 07/30/2014 Office visit MISHA BOWLES 06/17/2014 Office visit Yvonne Lang PUNCH FINISHER 03/26/2014 Office visit Yvonne Lang PUNCH FINISHER 12/01/2013 Office visit Yvonne Lang PUNCH FINISHER 11/05/2013 Office visit Yvonne Lang PUNCH FINISHER 09/30/2013 Office visit Yvonne Lang PUNCH FINISHER 09/03/2013 Office visit MISHA BOWLES 04/13/2010 Office visit Misha Coreas PA-C
--- OUTSIDE RECORDS SUMMARY | 2018-05-29 06:15 | XMS REPORT ---
Author Author Ivy Esquivel [facility] Address [address] [place], [place] [id number] Care Team Providers Care Dishroom Attendant Name Role Phone Ivy Esquivel PCP [...] TAKE ONE TABLET BY MOUTH ONCE DAILY paroxetine HCl 40 mg oral tablet 08/06/2016 TAKE ONE TABLET BY MOUTH ONCE DAILY FOR 30 DAYS Sprintec (28) 0.25-35 mg-mcg oral tablet 08/15/2016 TAKE ONE TABLET BY MOUTH ONCE DAILY Sprintec (28) 0.25-35 mg-mcg oral tablet 08/31/2016 TAKE ONE TABLET BY MOUTH ONCE DAILY Adderall 20 mg oral tablet 10/24/2016 take 1 tablet (20 mg) by oral [...] route every 12 hours for 7 days Discontinued Name Start Date Discontinued Date [...] Depression Active Attention deficit disorder Active 09/04/2013 Recurrent major depressive disorder, in partial remission Active 02/22/2016 Generalized anxiety disorder Active 02/22/2016 Vital Signs Date Time BP-Sys(mm[Hg] BP-Yomaira(mm[Hg]) HR(bpm) RR(rpm) Temp WT HT HC BMI BSA BMI Percentile O2 Sat(%) 08/15/2016 1:14:00 PM 130 mmHg 74 mmHg [...] 2016 1:16PM Dysuria Aug 15 2016 1:16PM Payers Insurance Name Company Name Plan Name Plan Number Policy Number Policy Group Number Start Date Ariadne Green [facility] Ariadne Green[facility] [id number] N/A [facility] [id number] August [facility] [id number] N/A History of Encounters Visit Date Visit Type Provider 08/15/2016 Office visit Ivy Esquivel FOUNDRY WORKER 05/29/2016 Office visit Ivy Esquivel FOUNDRY WORKER 02/22/2016 Office visit Ivy Esquivel FOUNDRY WORKER 11/18/2015 Office visit Ivy Esquivel FOUNDRY WORKER 07/21/2015 Office visit Ivy Esquivel FOUNDRY WORKER 07/06/2015 Office visit Ivy Esquivel FOUNDRY WORKER 03/24/2015 Office visit Yvonne Lang FOUNDRY WORKER 01/05/2015 Office visit Yvonne Lang FOUNDRY WORKER 09/21/2014 Office visit Yvonne Lang FOUNDRY WORKER 07/30/2014 Office visit MISHA BOWLES 06/17/2014 Office visit Yvonne Lang FOUNDRY WORKER 03/26/2014 Office visit Yvonne Lagn FOUNDRY WORKER 12/01/2013 Office visit Yvonne Lang FOUNDRY WORKER 11/05/2013 Office visit Yvonne Lang FOUNDRY WORKER 09/30/2013 Office visit Yvonne Lang FOUNDRY WORKER 09/03/2013 Office visit MISHA BOWLES 04/13/2010 Office visit Misha Coreas PA-C
--- OUTSIDE RECORDS SUMMARY | 2018-05-29 06:15 | XMS REPORT ---
Author Author Yvonne Lang [facility] Address [address] [place], [place] [id number] Care Team Providers Care Eco Industrial Development Consultant Name Role Phone Yvonne Lang PCP Unavailable Allergies and Adverse Reactions Name Reaction Notes NO KNOWN DRUG ALLERGIES Plan of Treatment Planned Activity Comments Planned Date Planned Time Plan/Goal CT THORAX W/DYE 12/01/2013 12:00 AM Medications Active Name Start Date Estimated Completion Date SIG Comments Zoloft oral tablet 50 mg 06/16/2014 take 1.5 tablets by oral route daily Adderall oral tablet 20 mg 07/22/2014 take 1 tablet (20 mg) by oral route 2 times per day before breakfast and at noon Name Start Date Expiration Date SIG Comments Prozac Oral Capsule 40 mg 04/13/2010 take 1 capsule (40 mg) by oral route once daily in the morning amoxicillin oral capsule 500 mg 12/01/2013 12/11/2013 take 1 capsule (500 mg) by oral route 3 times per day for 10 days Discontinued Name Start Date Discontinued Date SIG Comments Adderall oral tablet 30 mg 09/03/2013 09/04/2013 take 1 tablet (30 mg) by oral route 2 times per day before breakfast and at noon Vyvanse oral capsule 30 mg 09/04/2013 09/04/2013 take 1 capsule (30 mg) by oral route once daily in the morning for 30 days changed to adderall 30mg one daily Adderall oral tablet 30 mg 09/04/2013 12/01/2013 take 1 tablet (30 mg) by oral route once daily before breakfast albuterol sulfate inhalation HFA aerosol inhaler 90 mcg/actuation 11/05/2013 03/26/2014 inhale 1 - 2 puffs by inhalation route every 6 hours as needed Medrol (William) oral tablets,dose pack 4 mg 11/05/2013 03/26/2014 take as directed Problem List Description Status Onset ADD Active Anxiety Active Depression Active Attention Deficit Disorder Active 09/04/2013 Vital Signs Date Time BP-Sys(mm[Hg] BP-Yomaira(mm[Hg]) HR(bpm) RR(rpm) Temp WT HT HC BMI BSA BMI Percentile O2 Sat(%) 07/30/2014 11:33:00 AM 130 mmHg 80 mmHg 84 bpm 18 rpm 98 F 153 lbs 68 in 23.26 kg/m2 1.82 m2 100 % 06/17/2014 1:02:00 PM 118 mmHg 60 mmHg 90 bpm 18 rpm 97.7 F 156.6 lbs 66 in 25.2756 kg/m 1.8187 m 100 % 03/26/2014 10:37:00 AM 128 mmHg 72 mmHg 70 bpm 20 rpm 97.8 F 160.6 lbs 66 in 25.92 kg/m2 1.84 m2 100 % 12/01/2013 9:57:00 AM 121 mmHg 73 mmHg 84 bpm 18 rpm 97.5 F 158.2 lbs 66 in 25.5339 kg/m 1.828 m 100 % 11/05/2013 11:10:00 AM 123 mmHg 79 mmHg 86 bpm 20 rpm 97.6 F 159 lbs 66 in 25.66 kg/m2 1.83 m2 100 % 09/30/2013 1:36:00 PM 102 mmHg 72 mmHg 75 bpm 18 rpm 98.6 F 155.8 lbs 66 in 25.1465 kg/m 1.8141 m 100 % 09/03/2013 11:28:00 AM 120 mmHg 60 mmHg 98 bpm 20 rpm 97.6 F 149.375 lbs 66 in 24.11 kg/m2 1.78 m2 100 % 04/13/2010 11:12:00 AM [...] 1:04PM Seborrheic Keratosis Jul 30 2014 11:34AM Payers Insurance Name Company Name Plan Name Plan Number Policy Number Policy Group Number Start Date [facility] [id number] N/A [facility] [id number] N/A [facility] [id number] August History of Encounters Visit Date Visit Type Provider 07/30/2014 Office visit MISHA BOWLES 06/17/2014 Office visit Yvonne Lang SHREDDING FLOOR EQUIPMENT OPERATOR 03/26/2014 Office visit Yvonne Lang SHREDDING FLOOR EQUIPMENT OPERATOR 12/01/2013 Office visit Yvonne Lang SHREDDING FLOOR EQUIPMENT OPERATOR 11/05/2013 Office visit Yvonne Lang SHREDDING FLOOR EQUIPMENT OPERATOR 09/30/2013 Office visit Yvonne Lang SHREDDING FLOOR EQUIPMENT OPERATOR 09/03/2013 Office visit MISHA BOWLES 04/13/2010 Office visit Misha Coreas PA-C
--- OUTSIDE RECORDS SUMMARY | 2018-05-29 06:16 | XMS REPORT ---
Author Author Yvonne Lang [facility] Address [address] [place], [place] [id number] Care Team Providers Care Jewel Inserter Name Role Phone Yvonne Lang PCP Unavailable Allergies and Adverse Reactions Name Reaction Notes NO KNOWN DRUG ALLERGIES Plan of Treatment Planned Activity Comments Planned Date Planned Time Plan/Goal CT THORAX W/DYE 12/01/2013 12:00 AM Medications Active Name Start Date Estimated Completion Date SIG Comments Adderall oral tablet 20 mg 09/21/2014 take 1 tablet (20 mg) by oral route 2 times per day before breakfast and at noon Zoloft oral tablet 50 mg 09/21/2014 take 1.5 tablets by oral route daily Name Start Date Expiration Date SIG Comments [...] HC BMI BSA BMI Percentile O2 Sat(%) 09/21/2014 1:52:00 PM 128 mmHg 82 mmHg 100 bpm 18 rpm 98.2 F 138.4 lbs 66 in 22.34 kg/m2 1.71 m2 100 % 07/30/2014 11:33:00 AM 130 [...] 1:54PM Depressive Disorder Sep 21 2014 1:54PM Payers Insurance Name Company Name Plan Name Plan Number Policy Number Policy Group Number Start Date [facility] [id number] N/A [facility] [id number] N/A [facility] [id number] August History of Encounters Visit Date Visit Type Provider 09/21/2014 Office visit Yvonne Lang TRESTLE MAINTERNANCE LABORER 07/30/2014 Office visit MISHA BOWLES 06/17/2014 Office visit Yvonne Lang TRESTLE MAINTERNANCE LABORER 03/26/2014 Office visit Yvonne Lang TRESTLE MAINTERNANCE LABORER 12/01/2013 Office visit Yvonne Lang TRESTLE MAINTERNANCE LABORER 11/05/2013 Office visit Yvonne Lang TRESTLE MAINTERNANCE LABORER 09/30/2013 Office visit Yvonne Lang TRESTLE MAINTERNANCE LABORER 09/03/2013 Office visit MISHA BOWLES 04/13/2010 Office visit Misha Coreas PA-C
--- OUTSIDE RECORDS SUMMARY | 2018-05-29 06:16 | XMS REPORT ---
Author Author Ivy Esquivel [facility] Address [address] [facility] [address] [place], [place] [id number] Care Team Providers Care Oral Surgeon Name Role Phone Ivy Esquivel PCP Unavailable [...] oral route once daily for 30 days Sprintec (28) 0.25-35 mg-mcg oral tablet 06/26/2016 TAKE ONE TABLET BY MOUTH ONCE DAILY Adderall 20 mg oral tablet 07/04/2016 take 1 tablet (20 mg) by oral [...] Number Policy Group Number Start Date Ariadne Grene [facility] [id number] N/A [facility] [id number] August [facility] [id number] N/A History of Encounters Visit Date Visit Type Provider 05/29/2016 Office visit Ivy Esquivel CT TECHNOLOGIST 02/22/2016 Office visit Ivy Esquivel CT TECHNOLOGIST 11/18/2015 Office visit Ivy Esquivel CT TECHNOLOGIST 07/21/2015 Office visit Ivy Esquivel CT TECHNOLOGIST 07/06/2015 Office visit Ivy Esquivel CT TECHNOLOGIST 03/24/2015 Office visit Yvonne Lang CT TECHNOLOGIST 01/05/2015 Office visit Yvonne Lang CT TECHNOLOGIST 09/21/2014 Office visit Yvonne Lang CT TECHNOLOGIST 07/30/2014 Office visit MISHA BOWLES 06/17/2014 Office visit Yvonne Lang CT TECHNOLOGIST 03/26/2014 Office visit Yvonne Lang CT TECHNOLOGIST 12/01/2013 Office visit Yvonne Lang CT TECHNOLOGIST 11/05/2013 Office [address] Yvonne Lang CT TECHNOLOGIST 09/30/[address] TECHNOLOGIST 09/03/2013 Office visit MISHA BOWLES 04/13/2010 Office visit Misha Coreas PA-C
--- OUTSIDE RECORDS SUMMARY | 2018-05-29 06:16 | XMS REPORT ---
Author Author Ivy Esquivel [facility] Address [address] [place], [place] [id number] Care Team Providers Care Mold Filler And Drainer Name Role Phone Ivy Esquivel PCP Unavailable Allergies and Adverse Reactions Name Reaction Notes NO KNOWN DRUG ALLERGIES Plan of Treatment Planned Activity Comments Planned Date Planned Time Plan/Goal Pap smear 08/15/2016 12:00 AM CHLAMYDIA TRACHOMATIS AMP PROBE 08/15/2016 12:00 AM NEISSERIA GONORRHOEAE AMP PROBE 08/15/2016 12:00 AM KRISTINA PREP. 08/15/2016 12:00 AM KRISTINA PREP. 08/15/2016 12:00 AM WET PREP 08/15/2016 12:00 AM ingrown toenail 02/01/2015 10:00 [...] ONCE DAILY Adderall 20 mg oral tablet 08/15/2016 take 1 tablet (20 mg) by oral [...] route once daily for 30 days duplicate Discontinued Name Start Date Discontinued Date SIG [...] 08/15/2016 12:00 AM SPECIMEN HANDLING OFFICE-LAB Reviewed 11/05/2013 12:00 AM BREATHING CAPACITY TEST Reviewed 11/05/2013 12:00 AM CHEST X-RAY 2VW FRONTAL&LATL Reviewed 12/01/2013 12:[address] THORAX W/DYE Reviewed Results Summary Data and Description Results 08/15/2016 1:43 PM Color Ur Lt Yellow [...] Number Policy Group Number Start Date Ariadne [facility] [id number] N/A [facility] [id number] August [facility] [id number] N/A History of Encounters Visit Date Visit Type Provider 08/15/2016 Office visit Ivy Esquivel MULTIMEDIA INSTRUCTIONAL DESIGNER 05/29/2016 Office visit Ivy Alvin MULTIMEDIA INSTRUCTIONAL DESIGNER 02/22/2016 Office visit Ivy Alvin MULTIMEDIA INSTRUCTIONAL DESIGNER 11/18/2015 Office visit Ivy Alvin MULTIMEDIA INSTRUCTIONAL DESIGNER 07/21/2015 Office visit Ivy Alvin MULTIMEDIA INSTRUCTIONAL DESIGNER 07/06/2015 Office visit Ivy Esquivel MULTIMEDIA INSTRUCTIONAL DESIGNER 03/24/2015 Office visit Yvonne Lang MULTIMEDIA INSTRUCTIONAL DESIGNER 01/05/2015 Office visit Yvonne Lang MULTIMEDIA INSTRUCTIONAL DESIGNER 09/21/2014 Office visit Yvonne Lang MULTIMEDIA INSTRUCTIONAL DESIGNER 07/30/2014 Office visit MISHA BOWLES 06/17/2014 Office visit Yvonne Lang MULTIMEDIA INSTRUCTIONAL DESIGNER 03/26/2014 Office visit Yvonne Lang MULTIMEDIA INSTRUCTIONAL DESIGNER 12/01/2013 Office visit Yvonne Lang MULTIMEDIA INSTRUCTIONAL DESIGNER 11/05/2013 Office visit Yvonne Lang MULTIMEDIA INSTRUCTIONAL DESIGNER 09/30/2013 Office visit Yvonne Lang MULTIMEDIA INSTRUCTIONAL DESIGNER 09/03/2013 Office visit MISHA BOWLES 04/13/2010 Office visit Misha Coreas PA-C
--- OUTSIDE RECORDS SUMMARY | 2018-05-29 06:17 | XMS REPORT ---
Author Author Ivy Esquivel [facility] Address [address] [facility] [address] [place], [place] [id number] Care Team Providers Care Net Application Architect Name Role Phone Ivy Esquivel PCP Unavailable [...] DAILY paroxetine HCl 40 mg oral tablet 2016 TAKE ONE TABLET BY MOUTH ONCE DAILY FOR 30 DAYS Adderall 20 mg oral tablet 01/15/2017 take 1 tablet (20 mg) by oral [...] HC BMI BSA BMI Percentile O2 Sat(%) 12/14/2016 10:24:00 AM 122 mmHg 71 mmHg 83 bpm 18 rpm 98.3 F 162 lbs 66 in 26.15 kg/m2 1.85 m2 99 % 08/15/2016 1:14:00 PM 130 mmHg 74 mmHg 94 bpm 18 rpm 98.6 F 174.5 lbs 66 in 28.1647 kg/m 1.9199 m 100 % 05/29/2016 9:03:00 AM 122 mmHg [...] in partial remission Dec 14 2016 10:26AM Payers Insurance Name Company Name Plan Name Plan Number Policy Number Policy Group Number Start Date [facility] [id number] N/A [facility] [id number] N/A [facility] [id number] August [facility] [id number] N/A History of Encounters Visit Date Visit Type Provider 12/14/2016 Office visit Ivy Esquivel CLINICAL ENGINEER 08/15/2016 Office visit Ivy Esquivel CLINICAL ENGINEER 05/29/2016 Office visit Ivy Esquivel CLINICAL ENGINEER 02/22/2016 Office visit Ivy Esquivel CLINICAL ENGINEER 11/18/2015 Office visit Ivy Esquivel CLINICAL ENGINEER 07/21/2015 Office visit Ivy Esquivel CLINICAL ENGINEER 07/06/2015 Office visit Ivy Esquivel CLINICAL ENGINEER 03/24/2015 Office visit Yvonne Lang CLINICAL ENGINEER 01/05/2015 Office visit Yvonne Lang CLINICAL ENGINEER 09/21/2014 Office visit Yvonne Lang CLINICAL ENGINEER 07/30/2014 Office visit MISHA BOWLES 06/17/2014 Office visit Yvonne Lang CLINICAL ENGINEER 03/26/2014 Office visit Yvonne Lang CLINICAL ENGINEER 12/01/2013 Office visit Yvonne Lang CLINICAL ENGINEER 11/05/2013 Office visit Yvonne Lang CLINICAL ENGINEER 09/30/2013 Office visit Yvonne Lang CLINICAL ENGINEER 09/03/2013 Office visit MISHA BOWLES 04/13/2010 Office visit Misha Coreas PA-C
--- OUTSIDE RECORDS SUMMARY | 2018-05-29 06:17 | XMS REPORT ---
Author Author Ivy Esquivel [facility] Address [address] [place], [place] [id number] Care Team Providers Care Benefits Sales Consultant Name Role Phone Ivy Esquivel PCP Unavailable [...] ONCE DAILY Adderall 20 mg oral tablet 09/14/2016 take 1 tablet (20 mg) by oral [...] Policy Group Number Start Date Ariadne Green [facility] Ariadne Green-[facility] [id number] N/A [facility] [id number] August [facility] [id number] N/A History of Encounters Visit Date Visit Type Provider 08/15/2016 Office visit Ivy Esquivel EXPRESSIVE MUSIC THERAPIST 05/29/2016 Office visit Ivy Esquivel EXPRESSIVE MUSIC THERAPIST 02/22/2016 Office visit Ivy Esquivel EXPRESSIVE MUSIC THERAPIST 11/18/2015 Office visit Ivy Esquivel EXPRESSIVE MUSIC THERAPIST 07/21/2015 Office visit Ivy Esquivel EXPRESSIVE MUSIC THERAPIST 07/06/2015 Office visit Ivy Esquivel EXPRESSIVE MUSIC THERAPIST 03/24/2015 Office visit Yvonne Lang EXPRESSIVE MUSIC THERAPIST 01/05/2015 Office visit Yvonne Lang EXPRESSIVE MUSIC THERAPIST 09/21/2014 Office visit Yvonne Lang EXPRESSIVE MUSIC THERAPIST 07/30/2014 Office visit MISHA BOWLES 06/17/2014 Office visit Yvonne Lang EXPRESSIVE MUSIC THERAPIST 03/26/2014 Office visit Yvonne Lang EXPRESSIVE MUSIC THERAPIST 12/01/2013 Office visit Yvonne Lang EXPRESSIVE MUSIC THERAPIST 11/05/2013 Office visit Yvonne Lang EXPRESSIVE MUSIC THERAPIST 09/30/2013 Office visit Yvonne Lang EXPRESSIVE MUSIC THERAPIST 09/03/2013 Office visit MISHA BOLWES 04/13/2010 Office visit Misha Coreas PA-C
--- OUTSIDE RECORDS SUMMARY | 2018-05-29 06:18 | XMS REPORT ---
Author Ivy Camilo Organization [facility] Address [address] [place], [place] [id number] Care Team Providers Care Trader Fixed Income Name Role Phone Ivy Esquivel PCP Unavailable [...] ONCE DAILY Adderall 20 mg oral tablet 11/18/2015 take 1 tablet (20 mg) by oral route 2 times per day before breakfast and at noon Zoloft 50 mg oral tablet 11/18/2015 take 1 tablet by oral route daily Name Start Date [...] Number Policy Group Number Start Date [facility] [id number] N/A [facility] [id number] August [facility] [id number] N/A History of Encounters Visit Date Visit Type Provider 11/18/2015 Office visit Ivy Esquivel PRESETTER OPERATOR 07/21/2015 Office visit Ivy Esquivel PRESETTER OPERATOR 07/06/2015 Office visit Ivy Esquivel PRESETTER OPERATOR 03/24/2015 Office visit Yvonne Lang PRESETTER OPERATOR 01/05/2015 Office visit Yvonne Lang PRESETTER OPERATOR 09/21/2014 Office visit Yvonne Lang PRESETTER OPERATOR 07/30/2014 Office visit MISHA BOWLES 06/17/2014 Office visit Yvonne Lang PRESETTER OPERATOR 03/26/2014 Office visit Yvonne Lang PRESETTER OPERATOR 12/01/2013 Office visit Yvonne Lang PRESETTER OPERATOR 11/05/2013 Office visit Yvonne Lang PRESETTER OPERATOR 09/30/2013 Office visit Yvonne Lang PRESETTER OPERATOR 09/03/2013 Office visit MISHA BOWLES 04/13/2010 Office visit Misha Coreas PA-C
--- OUTSIDE RECORDS SUMMARY | 2018-05-29 06:18 | XMS REPORT ---
Author Ivy Camilo [facility] Address [address] [place], [place] [address] Care Team Providers Care Stripper Soft Plastic Name Role Phone Ivy Esquivel PCP Unavailable [...] by oral route at bedtime as needed Ortho-Cyclen (28) 0.25-35 mg-mcg oral tablet 03/24/2015 take 1 tablet by oral route once daily Zoloft 50 mg oral tablet 03/24/2015 take 1.5 tablets by oral route daily Adderall 20 mg oral tablet 05/18/2015 take 1 tablet (20 mg) by oral route 2 times per day before breakfast and at noon Lamictal 25 mg oral tablet 07/06/2015 take 1 tablet by oral route daily x7 days then 50mg daily x7 days then 75mg daily x7 days then 4 tablets daily thereafter Name Start Date Expiration Date SIG Comments [...] HC BMI BSA BMI Percentile O2 Sat(%) 07/06/2015 2:54:00 PM 122 mmHg 70 mmHg [...] 2015 2:56PM Depression Jul 06 2015 2:56PM Payers Insurance Name Company Name Plan Name Plan Number Policy Number Policy Group Number Start Date [facility] [id number] N/A Ariadne Green [facility] [id number] N/A [facility] [id number] August History of Encounters Visit Date Visit Type Provider 07/06/2015 Office visit Ivy Esquivel ENTERPRISE RESOURCE PLANNER 03/24/2015 Office visit Yvonne Lang ENTERPRISE RESOURCE PLANNER 01/05/2015 Office visit Yvonne Lang ENTERPRISE RESOURCE PLANNER 09/21/2014 Office visit Yvonne Lang ENTERPRISE RESOURCE PLANNER 07/30/2014 Office visit MISHA BOWLES 06/17/2014 Office visit Yvonne Lang ENTERPRISE RESOURCE PLANNER 03/26/2014 Office visit Yvonne Lang ENTERPRISE RESOURCE PLANNER 12/01/2013 Office visit Yvonne Lang ENTERPRISE RESOURCE PLANNER 11/05/2013 Office visit Yvonne Lang ENTERPRISE RESOURCE PLANNER 09/30/2013 Office visit Yvonne Lang ENTERPRISE RESOURCE PLANNER 09/03/2013 Office visit MISHA BOWLES 04/13/2010 Office visit Misha Coreas PA-C
--- OUTSIDE RECORDS SUMMARY | 2018-05-29 06:18 | XMS REPORT ---
Author Author Ivy Esquivel [facility] Address [address] [place], [place] [phone] Care Team Providers Care Online Marketing Analyst Name Role Phone Ivy Esquivel PCP Unavailable Allergies and Adverse Reactions Name Reaction Notes NO KNOWN DRUG ALLERGIES Plan of Treatment Planned Activity Comments Planned Date Planned Time Plan/Goal PFT 11/05/2013 12:[address] chest w/ contrast 12/01/2013 12:00 AM ingrown toenail 02/01/2015 10:00 AM Medications Active Name Start Date Estimated Completion Date SIG Comments Sprintec (28) 0.25-35 mg-mcg oral tablet 01/04/2016 TAKE ONE TABLET BY MOUTH ONCE DAILY sertraline 50 mg oral tablet 01/09/2016 TAKE ONE TABLET BY MOUTH ONCE DAILY Ortho-Cyclen (28) 0.25-35 mg-mcg oral tablet 02/10/2016 take 1 tablet by oral route once daily Adderall 20 mg oral tablet 03/22/2016 take 1 tablet (20 mg) by oral [...] HC BMI BSA BMI Percentile O2 Sat(%) 02/22/2016 7:57:00 AM 122 mmHg 64 mmHg [...] 12:00 AM CHEST X-RAY 2VW FRONTAL&LATL Reviewed Results Summary Not available. History Of [...] in partial remission Feb 22 2016 8:00AM Payers Insurance Name Company Name Plan Name Plan Number Policy Number Policy Group Number Start Date [facility] [id number] N/A [facility] [id number] N/A [facility] [id number] August History of Encounters Visit Date Visit Type Provider 02/22/2016 Office visit Ivy Esquivel JACQUARD TWINE POLISHER OPERATOR 11/18/2015 Office visit Ivy Esquivel JACQUARD TWINE POLISHER OPERATOR 07/21/2015 Office visit Ivy Esquivel JACQUARD TWINE POLISHER OPERATOR 07/06/2015 Office visit Ivy Esquivel JACQUARD TWINE POLISHER OPERATOR 03/24/2015 Office visit Yvonne Lang JACQUARD TWINE POLISHER OPERATOR 01/05/2015 Office visit Yvonne Lang JACQUARD TWINE POLISHER OPERATOR 09/21/2014 Office visit Yvonne Lang JACQUARD TWINE POLISHER OPERATOR 07/30/2014 Office visit MISHA BOWLES 06/17/2014 Office visit Yvonne Lang JACQUARD TWINE POLISHER OPERATOR 03/26/2014 Office visit Yvonne Lang JACQUARD TWINE POLISHER OPERATOR 12/01/2013 Office visit Yvonne Lang JACQUARD TWINE POLISHER OPERATOR 11/05/2013 Office visit Yvonne Lang JACQUARD TWINE POLISHER OPERATOR 09/30/2013 Office visit Yvonne Lang JACQUARD TWINE POLISHER OPERATOR 09/03/2013 Office visit MISHA BOWLES 04/13/2010 Office visit Misha Coreas PA-C
--- OUTSIDE RECORDS SUMMARY | 2018-05-29 06:19 | XMS REPORT ---
Author Author Yvonne Lang [facility] Address [address] [place], [place] [id number] Care Team Providers Care Head Of Global Strategic Partnerships Name Role Phone Yvonne Lang PCP Unavailable Allergies and Adverse Reactions Name Reaction Notes NO KNOWN DRUG ALLERGIES Plan of Treatment Planned Activity Comments Planned Date Planned Time Plan/Goal BREATHING CAPACITY TEST 11/05/2013 12:[address] THORAX W/DYE 12/01/2013 12:00 AM Medications Active Name Start Date Estimated Completion Date SIG Comments Adderall 20 mg oral tablet 01/05/2015 take 1 tablet (20 mg) by oral route 2 times per day before breakfast and at noon Zoloft 50 mg oral tablet 01/05/2015 take 1.5 tablets by oral route daily cyclobenzaprine 10 mg oral tablet 01/05/2015 take one-half tablet (5 mg) by oral route at bedtime as needed Name Start Date Expiration Date SIG Comments [...] HC BMI BSA BMI Percentile O2 Sat(%) 01/05/2015 1:04:00 PM 84 bpm 20 rpm [...] 1:07PM Depressive Disorder Jan 05 2015 1:07PM Payers Insurance Name Company Name Plan Name Plan Number Policy Number Policy Group Number Start Date [facility] [id number] N/A [facility] [id number] N/A [facility] [id number] August History of Encounters Visit Date Visit Type Provider 01/05/2015 Office visit Yvonne Lang FIBRE TECHNOLOGIST 09/21/2014 Office visit Yvonne Lang FIBRE TECHNOLOGIST 07/30/2014 Office visit MISHA BOLWES 06/17/2014 Office visit Yvonne Lang FIBRE TECHNOLOGIST 03/26/2014 Office visit Yvonne Lang FIBRE TECHNOLOGIST 12/01/2013 Office visit Yvonne Lang FIBRE TECHNOLOGIST 11/05/2013 Office visit Yvonne Lang FIBRE TECHNOLOGIST 09/30/2013 Office visit Yvonne Lang FIBRE TECHNOLOGIST 09/03/2013 Office visit MISHA BOWLSE 04/13/2010 Office visit Misha Coreas PA-C
--- OUTSIDE RECORDS SUMMARY | 2018-05-29 06:19 | XMS REPORT ---
Author Author Yvonne Lang [facility] Address [address] [place], [place] [id number] Care Team Providers Care Environmental Control Administrator Name Role Phone Yvonne Lang PCP Unavailable Allergies and Adverse Reactions Name Reaction Notes NO KNOWN DRUG ALLERGIES Plan of Treatment Planned Activity Comments Planned Date Planned Time Plan/Goal CT THORAX W/DYE 12/01/2013 12:00 AM Medications Active Name Start Date Estimated Completion Date SIG Comments Zoloft oral tablet 50 mg 06/16/2014 take 1.5 tablets by oral route daily Adderall oral tablet 20 mg 08/25/2014 take 1 tablet (20 mg) by oral [...] Policy Number Policy Group Number Start Date [facility] [id number] N/A [facility] [id number] N/A [facility] [id number] August History of Encounters Visit Date Visit Type Provider 07/30/2014 Office visit MISHA BOWLES 06/17/2014 Office visit Yvonne Lang ECHOCARDIOGRAPHER 03/26/2014 Office visit Yvonne Lang ECHOCARDIOGRAPHER 12/01/2013 Office visit Yvonne Lang ECHOCARDIOGRAPHER 11/05/2013 Office visit Yvonne Lang ECHOCARDIOGRAPHER 09/30/2013 Office visit Yvonne Lang ECHOCARDIOGRAPHER 09/03/2013 Office visit MISHA BOWLES 04/13/2010 Office visit Misha Coreas PA-C
--- OUTSIDE RECORDS SUMMARY | 2018-05-29 06:19 | XMS REPORT ---
Author Author Ivy Esquivel [facility] Address [address] [place], [place] [id number] Care Team Providers Care Corporation Officer Name Role Phone Ivy Esquivel PCP Unavailable [...] once daily Adderall 20 mg oral tablet 02/22/2016 take 1 tablet (20 mg) by oral [...] Number Policy Group Number Start Date [facility] [id number] N/A [facility] [id number] N/A [facility] [id number] August History of Encounters Visit Date Visit Type Provider 02/22/2016 Office visit Ivy Esquivel GIFTED PROGRAM TEACHER 11/18/2015 Office visit Ivy Esquivel GIFTED PROGRAM TEACHER 07/21/2015 Office visit Ivy Esquivel GIFTED PROGRAM TEACHER 07/06/2015 Office visit Ivy Esquivel GIFTED PROGRAM TEACHER 03/24/2015 Office visit Yvonne Lang GIFTED PROGRAM TEACHER 01/05/2015 Office visit Yvonne Lang GIFTED PROGRAM TEACHER 09/21/2014 Office visit Yvonne Lang GIFTED PROGRAM TEACHER 07/30/2014 Office visit MISHA BOWLES 06/17/2014 Office visit Yvonne Lang GIFTED PROGRAM TEACHER 03/26/2014 Office visit Yvonne Lang GIFTED PROGRAM TEACHER 12/01/2013 Office visit Yvonne Lang GIFTED PROGRAM TEACHER 11/05/2013 Office visit Yvonne Lang GIFTED PROGRAM TEACHER 09/30/2013 Office visit Yvonne Lang GIFTED PROGRAM TEACHER 09/03/2013 Office visit MISHA BOWLES 04/13/2010 Office visit Misha Coreas PA-C
--- OUTSIDE RECORDS SUMMARY | 2018-05-29 06:20 | XMS REPORT ---
Author Author Ivy Esquivel [facility] Address [address] [place], [place] [address] Care Team Providers Care Manufacturing Analyst Name Role Phone Ivy Esquivel PCP [...] once daily Adderall 20 mg oral tablet 10/10/2015 take 1 tablet (20 mg) by oral [...] Policy Number Policy Group Number Start Date [facility] [id number] N/A [facility] [id number] N/A [facility] [id number] August History of Encounters Visit Date Visit Type Provider 07/21/2015 Office visit Ivy Esquivel WATERPROOFING MACHINE OPERATOR 07/06/2015 Office visit Ivy Esquivel WATERPROOFING MACHINE OPERATOR 03/24/2015 Office visit Yvonne Lang WATERPROOFING MACHINE OPERATOR 01/05/2015 Office visit Yvonne Lang WATERPROOFING MACHINE OPERATOR 09/21/2014 Office visit Yvonne Lang WATERPROOFING MACHINE OPERATOR 07/30/2014 Office visit MISHA BOWLES 06/17/2014 Office visit Yvonne Lang WATERPROOFING MACHINE OPERATOR 03/26/2014 Office visit Yvonne Lang WATERPROOFING MACHINE OPERATOR 12/01/2013 Office visit Yvonne Lang WATERPROOFING MACHINE OPERATOR 11/05/2013 Office visit Yvonne Lang WATERPROOFING MACHINE OPERATOR 09/30/2013 Office visit Yvonne Lang WATERPROOFING MACHINE OPERATOR 09/03/2013 Office visit MISHA BOWLES 04/13/2010 Office visit Misha Coreas PA-C
--- OUTSIDE RECORDS SUMMARY | 2018-05-29 06:20 | XMS REPORT ---
Author Author Ivy Esquivel [facility] Address [address] [place], [place] [address] Care Team Providers Care Inside Tester Name Role Phone Ivy Esquivel PCP Unavailable [...] per day before breakfast and at noon Flagyl 500 mg oral tablet 08/15/2016 08/22/2016 take 1 tablet (500 mg) by oral route every 12 hours for 7 days Name Start Date Expiration Date SIG Comments [...] 08/15/2016 12:00 AM CYTOPATH C/V THIN LAYER Returned 08/15/2016 12:00 AM TISSUE EXAM FOR FUNGI Returned 08/15/2016 12:00 AM SMEAR WET MOUNT SALINE/INK Returned 08/15/2016 12:00 AM SMEAR WET MOUNT SALINE/INK Returned 11/05/2013 12:00 AM BREATHING CAPACITY TEST Reviewed 11/05/2013 12:00 AM CHEST X-RAY 2VW FRONTAL&LATL Reviewed 12/01/2013 12:[address] THORAX W/DYE Reviewed Results Summary Data and Description Results 08/15/2016 1:42 PM WET [...] Policy Group Number Start Date Ariadne Green [facility] Ariadne Green-[facility] [id number] N/A [facility] [id number] August [facility] [id number] N/A History of Encounters Visit Date Visit Type Provider 08/15/2016 Office visit Ivy Esquivel SUPERVISOR FABRICATION AND ASSEMBLY 05/29/2016 Office visit Ivy Esquivel SUPERVISOR FABRICATION AND ASSEMBLY 02/22/2016 Office visit Ivy Esquivel SUPERVISOR FABRICATION AND ASSEMBLY 11/18/2015 Office visit Ivy Esquivel SUPERVISOR FABRICATION AND ASSEMBLY 07/21/2015 Office visit Ivy Esquivel SUPERVISOR FABRICATION AND ASSEMBLY 07/06/2015 Office visit Ivy Esquivel SUPERVISOR FABRICATION AND ASSEMBLY 03/24/2015 Office visit Yvonne Lang SUPERVISOR FABRICATION AND ASSEMBLY 01/05/2015 Office visit Yvonne Lang SUPERVISOR FABRICATION AND ASSEMBLY 09/21/2014 Office visit Yvonne Lang SUPERVISOR FABRICATION AND ASSEMBLY 07/30/2014 Office visit MISHA BOWLES 06/17/2014 Office visit Yvonne Lang SUPERVISOR FABRICATION AND ASSEMBLY 03/26/2014 Office visit Yvonne Lang SUPERVISOR FABRICATION AND ASSEMBLY 12/01/2013 Office visit Yvonne Lang SUPERVISOR FABRICATION AND ASSEMBLY 11/05/2013 Office visit Yvonne Lang SUPERVISOR FABRICATION AND ASSEMBLY 09/30/2013 Office visit Yvonne Lang SUPERVISOR FABRICATION AND ASSEMBLY 09/03/2013 Office visit MISHA BOWLES 04/13/2010 Office visit Misha Coreas PA-C
--- OUTSIDE RECORDS SUMMARY | 2018-05-29 06:20 | XMS REPORT ---
Author Author Ivy Esquivel [facility] Address [address] [place], [place] [address] Care Team Providers Care Rn International Name Role Phone Ivy Esquivel PCP Unavailable [...] per day before breakfast and at noon Sprintec (28) 0.25-35 mg-mcg oral tablet 08/06/2016 TAKE ONE TABLET BY MOUTH ONCE DAILY paroxetine HCl 40 mg oral tablet 08/06/2016 TAKE ONE TABLET BY MOUTH ONCE DAILY FOR 30 DAYS Name Start Date Expiration Date SIG Comments [...] oral route once daily for 30 days Discontinued Name Start Date Discontinued Date [...] Policy Number Policy Group Number Start Date [facility] [id number] N/A [facility] [id number] August [facility] [id number] N/A History of Encounters Visit Date Visit Type Provider 05/29/2016 Office visit Ivy Esquivel POLITICAL CARTOONIST 02/22/2016 Office visit Ivy Esquivel POLITICAL CARTOONIST 11/18/2015 Office visit Ivy Esquivel POLITICAL CARTOONIST 07/21/2015 Office visit Ivy Esquivel POLITICAL CARTOONIST 07/06/2015 Office visit Ivy Esquivel POLITICAL CARTOONIST 03/24/2015 Office visit Yvonne Lang POLITICAL CARTOONIST 01/05/2015 Office visit Yvonne Lang POLITICAL CARTOONIST 09/21/2014 Office visit Yvonne Lang POLITICAL CARTOONIST 07/30/2014 Office visit MISHA BOWLES 06/17/2014 Office visit Yvonne Lang POLITICAL CARTOONIST 03/26/2014 Office visit Yvonne Lang POLITICAL CARTOONIST 12/01/2013 Office visit Yvonne Lang POLITICAL CARTOONIST 11/05/2013 Office visit Yvonne Lang POLITICAL CARTOONIST 09/30/2013 Office visit Yvonne Lang POLITICAL CARTOONIST 09/03/2013 Office visit MISHA BOWLES 04/13/2010 Office visit Misha Coreas PA-C
--- OUTSIDE RECORDS SUMMARY | 2018-05-29 06:21 | XMS REPORT ---
Author Author Ivy Esquivel Organization [facility] Address [address] [place], [place] [address] Care Team Providers Care Rail Specialist Name Role Phone Ivy Esquivel PCP Unavailable [...] take 1 tablet by oral route daily Adderall 20 mg oral tablet 07/21/2015 take 1 tablet (20 mg) by oral route 2 times per day before breakfast and at noon Ortho-Cyclen (28) 0.25-35 mg-mcg oral tablet 07/21/2015 take 1 tablet by oral route once daily Name Start Date Expiration Date SIG [...] Policy Number Policy Group Number Start Date [facility] [id number] N/A [facility] [id number] N/A [facility] [id number] August History of Encounters Visit Date Visit Type Provider 07/21/2015 Office visit Ivy Esquivel HAND FLATWORK FINISHER 07/06/2015 Office visit Ivy Esquivel HAND FLATWORK FINISHER 03/24/2015 Office visit Yvonne Lang HAND FLATWORK FINISHER 01/05/2015 Office visit Yvonne Lang HAND FLATWORK FINISHER 09/21/2014 Office visit Yvonne Lang HAND FLATWORK FINISHER 07/30/2014 Office visit MISHA BOWLES 06/17/2014 Office visit Yvonne Lang HAND FLATWORK FINISHER 03/26/2014 Office visit Yvonne Lang HAND FLATWORK FINISHER 12/01/2013 Office visit Yvonne Lang HAND FLATWORK FINISHER 11/05/2013 Office visit Yvonne Lang HAND FLATWORK FINISHER 09/30/2013 Office visit Yvonne Lang HAND FLATWORK FINISHER 09/03/2013 Office visit MISHA BOWLES 04/13/2010 Office visit Misha Coreas PA-C
--- OUTSIDE RECORDS SUMMARY | 2018-05-29 06:21 | XMS REPORT ---
Author Ivy Camilo Organization [facility] Address [address] [place], [place] [address] Care Team Providers Care Stone Planer Name Role Phone Ivy Esquivel PCP Unavailable [...] route daily Adderall 20 mg oral tablet 12/20/2015 take 1 tablet (20 mg) by oral [...] Number Policy Group Number [facility] [id number] N/A [facility] [id number] August [facility] [id number] N/A History of Encounters Visit Date Visit Type Provider 11/18/2015 Office visit Ivy Esquivel SULFUR BURNER 07/21/2015 Office visit Ivy Esquivel SULFUR BURNER 07/06/2015 Office visit Ivy Esquivel SULFUR BURNER 03/24/2015 Office visit Yvonne Lang SULFUR BURNER 01/05/2015 Office visit Yvonne Lang SULFUR BURNER 09/21/2014 Office visit Yvonne Lang SULFUR BURNER 07/30/2014 Office visit MISHA BOWLES 06/17/2014 Office visit Yvonne Lang SULFUR BURNER 03/26/2014 Office visit Yvonne Lang SULFUR BURNER 12/01/2013 Office visit Yvonne Lang SULFUR BURNER 11/05/2013 Office visit Yvonne Lang SULFUR BURNER 09/30/2013 Office visit Yvonne Lang SULFUR BURNER 09/03/2013 Office visit MISHA BOWLES 04/13/2010 Office visit Misha Coraes PA-C
--- OUTSIDE RECORDS SUMMARY | 2018-05-29 06:21 | XMS REPORT ---
Author Author Ivy Esquivel [facility] Address [address] [place], [place] [id number] Care Team Providers Care Ship Erector Name Role Phone Ivy Esquivel PCP Unavailable [...] SPECIMEN HANDLING OFFICE-LAB Reviewed 08/15/2016 12:00 AM TISSUE EXAM FOR [...] Policy Group Number Start Date Ariadne Green [facility] Ariadne Green-[facility] [id number] N/A [facility] [id number] August [facility] [id number] N/A History of Encounters Visit Date Visit Type Provider 08/15/2016 Office visit Ivy Esquivel GRAIN BROKER 05/29/2016 Office visit Ivy Esquivel GRAIN BROKER 02/22/2016 Office visit Ivy Esquivel GRAIN BROKER 11/18/2015 Office visit Ivy Esquivel GRAIN BROKER 07/21/2015 Office visit Ivy Esquivel GRAIN BROKER 07/06/2015 Office visit Ivy Esquivel GRAIN BROKER 03/24/2015 Office visit Yvonne Lang GRAIN BROKER 01/05/2015 Office visit Yvonne Lang GRAIN BROKER 09/21/2014 Office visit Yvonne Lang GRAIN BROKER 07/30/2014 Office visit MISHA BOWLES 06/17/2014 Office visit Yvonne Lang GRAIN BROKER 03/26/2014 Office visit Yvonne Lang GRAIN BROKER 12/01/2013 Office visit Yvonne Lang GRAIN BROKER 11/05/2013 Office visit Yvonne Lang GRAIN BROKER 09/30/2013 Office visit Yvonne Lang GRAIN BROKER 09/03/2013 Office visit MISHA BOWLES 04/13/2010 Office visit Misha Coreas PA-C
--- OUTSIDE RECORDS SUMMARY | 2018-05-29 06:22 | XMS REPORT ---
Author Author Ivy Esquivel [facility] Address [address] [place], [place] [phone] Care Team Providers Care Audio Visual Tech Name Role Phone Ivy Esquivel PCP Unavailable [...] 30 DAYS Adderall 20 mg oral tablet 12/14/2016 take 1 tablet (20 mg) by oral [...] Policy Number Policy Group Number Start Date [facility] [id number] N/[facility] [id number] N/A [facility] [id number] August [facility] [id number] N/A History of Encounters Visit Date Visit Type Provider 12/14/2016 Office visit Ivy Esquivel SUPERVISOR SULFURIC ACID PLANT 08/15/2016 Office visit Ivy Esquivel SUPERVISOR SULFURIC ACID PLANT 05/29/2016 Office visit Ivy Esquivel SUPERVISOR SULFURIC ACID PLANT 02/22/2016 Office visit Ivy Esquivel SUPERVISOR SULFURIC ACID PLANT 11/18/2015 Office visit Ivy Esquivel SUPERVISOR SULFURIC ACID PLANT 07/21/2015 Office visit Ivy Esquivel SUPERVISOR SULFURIC ACID PLANT 07/06/2015 Office visit Ivy Esquivel SUPERVISOR SULFURIC ACID PLANT 03/24/2015 Office visit Yvonne Lang SUPERVISOR SULFURIC ACID PLANT 01/05/2015 Office visit Yvonne Lang SUPERVISOR SULFURIC ACID PLANT 09/21/2014 Office visit Yvonne Lang SUPERVISOR SULFURIC ACID PLANT 07/30/2014 Office visit MISHA BOWLES 06/17/2014 Office visit Yvonne Lang SUPERVISOR SULFURIC ACID PLANT 03/26/2014 Office visit Yvonne Lang SUPERVISOR SULFURIC ACID PLANT 12/01/2013 Office visit Yvonne Lang SUPERVISOR SULFURIC ACID PLANT 11/05/2013 Office visit Yvonne Lang SUPERVISOR SULFURIC ACID PLANT 09/30/2013 Office visit Yvonne Lang SUPERVISOR SULFURIC ACID PLANT 09/03/2013 Office visit MISHA BOWLES 04/13/2010 Office visit Misha Coreas PA-C
--- OUTSIDE RECORDS SUMMARY | 2018-05-29 06:22 | XMS REPORT ---
Author Author Yvonne Lang [facility] Address [address] [place], [place] [id number] Care Team Providers Care Edger Hand Name Role Phone Yvonne Lang PCP Unavailable [...] once daily Adderall 20 mg oral tablet 03/24/2015 take 1 tablet (20 mg) by oral route 2 times per day before breakfast and at noon Zoloft 50 mg oral tablet 03/24/2015 take [...] HC BMI BSA BMI Percentile O2 Sat(%) 03/24/2015 8:49:00 AM 124 mmHg 78 mmHg [...] 8:51AM Eyelashes sparse Mar 24 2015 8:51AM Payers Insurance Name Company Name Plan Name Plan Number Policy Number Policy Group Number Start Date [facility] [id number] N/A [facility] [id number] N/A [facility] [id number] August History of Encounters Visit Date Visit Type Provider 03/24/2015 Office visit Yvonne Lang GRAVE DIGGER 01/05/2015 Office visit Yvonne Lang GRAVE DIGGER 09/21/2014 Office visit Yvonne Lang GRAVE DIGGER 07/30/2014 Office visit MISHA BOWLES 06/17/2014 Office visit Yvonne Lang GRAVE DIGGER 03/26/2014 Office visit Yvonne Lang GRAVE DIGGER 12/01/2013 Office visit Yvonne Lang GRAVE DIGGER 11/05/2013 Office visit Yvonne Lang GRAVE DIGGER 09/30/2013 Office visit Yvonne Lang GRAVE DIGGER 09/03/2013 Office visit MISHA BOWLES 04/13/2010 Office visit Misha Coreas PA-C
--- OUTSIDE RECORDS SUMMARY | 2018-05-29 06:23 | XMS REPORT ---
Author Author Yvonne Lang [facility] Address [address] [facility] [address] [place], [place] [id number] Care Team Providers Care Cultural Centre Manager Name Role Phone Yvonne Lang PCP Unavailable Allergies and Adverse Reactions Name Reaction Notes NO KNOWN DRUG ALLERGIES Plan of Treatment Planned Activity Comments Planned Date Planned Time Plan/Goal CT THORAX W/DYE 12/01/2013 12:00 AM Medications Active Name Start Date Estimated Completion Date SIG Comments Zoloft oral tablet 50 mg 09/21/2014 take 1.5 tablets by oral route daily Adderall oral tablet 20 mg 10/20/2014 take 1 tablet (20 mg) by oral [...] Number Policy Group Number Start Date [facility] [id number] N/A [facility] [id number] N/A [facility] [id number] August History of Encounters Visit Date Visit Type Provider 09/21/2014 Office visit Yvonne Lang LITERATURE TEACHER 07/30/2014 Office visit MISHA BOWLES 06/17/2014 Office visit Yvonne Lang LITERATURE TEACHER 03/26/2014 Office visit Yvonne Lang LITERATURE TEACHER 12/01/2013 Office visit Yvonne Lang LITERATURE TEACHER 11/05/2013 Office visit Yvonne Lang LITERATURE TEACHER 09/30/2013 Office visit Yvonne Lang LITERATURE TEACHER 09/03/2013 Office visit MISHA BOWLES 04/13/2010 Office visit Misha Coreas PA-C
--- OUTSIDE RECORDS SUMMARY | 2018-05-29 06:23 | XMS REPORT ---
Author Author Yvonne Lang [facility] Address [address] [place], [place] [phone] Care Team Providers Care Assistant Housekeeping Manager Name Role Phone Yvonne Lang PCP [...] Policy Number Policy Group Number Start Date [facility] [id number] N/A [facility] [id number] N/A [facility] [id number] August History of Encounters Visit Date Visit Type Provider 01/05/2015 Office visit Yvonne Lang BOOK PACKER 09/21/2014 Office visit Yvonne Lang BOOK PACKER 07/30/2014 Office visit MISHA BOWLES 06/17/2014 Office visit Yvonne Lang BOOK PACKER 03/26/2014 Office visit Yvonne Lang BOOK PACKER 12/01/2013 Office visit Yvonne Lang BOOK PACKER 11/05/2013 Office visit Yvonne Lang BOOK PACKER 09/30/2013 Office visit Yvonne Lang BOOK PACKER 09/03/2013 Office visit MISHA BOWLES 04/13/2010 Office visit Misha Coreas PA-C
--- OUTSIDE RECORDS SUMMARY | 2018-05-29 06:23 | XMS REPORT ---
Author Author Ivy Esquivel [facility] Address [address] [facility] [address] [place], [place] [id number] Care Team Providers Care Waste And Batting Waste Chopper Name Role Phone Ivy Esquivel PCP Allergies [...] Policy Number Policy Group Number Start Date [facility] [id number] N/A [facility] [id number] N/A [facility] [id number] August [facility] [id number] N/A History of Encounters Visit Date Visit Type Provider 03/20/2017 Office visit Ivy Esquivel BOILERMAKER MECHANIC 12/14/2016 Office visit Ivy Esquivel BOILERMAKER MECHANIC 08/15/2016 Office visit Ivy Esquivel BOILERMAKER MECHANIC 05/29/2016 Office visit Ivy Esquivel BOILERMAKER MECHANIC 02/22/2016 Office visit Ivy Esquivel BOILERMAKER MECHANIC 11/18/2015 Office visit Ivy Esquivel BOILERMAKER MECHANIC 07/21/2015 Office visit Ivy Esquivel BOILERMAKER MECHANIC 07/06/2015 Office visit Ivy Esquivel BOILERMAKER MECHANIC 03/24/2015 Office visit Yvonne Lang BOILERMAKER MECHANIC 01/05/2015 Office visit Yvonne Lang BOILERMAKER MECHANIC 09/21/2014 Office visit Yvonne Lang BOILERMAKER MECHANIC 07/30/2014 Office visit MISHA BOWLES 06/17/2014 Office visit Yvonne Lang BOILERMAKER MECHANIC 03/26/2014 Office visit Yvonne Lang BOILERMAKER MECHANIC 12/01/2013 Office visit Yvonne Lang BOILERMAKER MECHANIC 11/05/2013 Office visit Yvonne Lang BOILERMAKER MECHANIC 09/30/2013 Office visit Yvonne Lang BOILERMAKER MECHANIC 09/03/2013 Office visit MISHA BOWLES 04/13/2010 Office visit Misha Coreas PA-C
--- OUTSIDE RECORDS SUMMARY | 2018-05-29 06:23 | XMS REPORT | Continuity of Care Document ---
Author Author [facility] Organization [facility] Address Unknown Phone Unavailable Allergies Active Description Code Type Severity Reaction Onset Reported/Identified Relationship to Patient Clinical Status Yes No Known Drug Allergies [id number] Drug Allergy Unknown N/A 05/22/2018 Medications There is no data. Problems Date Dx Coded Attending Type Code Diagnosis Diagnosed By 12/06/2017 DOROTA IBARRA MD Ot Z36.89 ENCOUNTER FOR OTHER SPECIFIED 12/06/2017 DOROTA IBARRA MD Ot Z3A.14 14 WEEKS GESTATION OF 01/13/2018 DOROTA IBARRA MD Ot Z36.89 ENCOUNTER FOR OTHER SPECIFIED 01/13/2018 DOROTA IBARRA MD Ot Z3A.14 14 WEEKS GESTATION OF 05/22/2018 FENCASI ANGULO DO Ot Z01.818 ENCOUNTER FOR OTHER PREPROCEDURAL EXAMIN Procedures There is no data. Results Test Result Range SUREPATH PAP AND HPV mRNA E6/E7 - 11/07/17 15:04 CLINICAL INFORMATION: NRG LMP: NRG PREV. PAP: NRG PREV. BX: NRG SOURCE: Cervix NRG STATEMENT OF ADEQUACY: NRG INTERPRETATION/RESULT: NRG OPTICS MANUFACTURING TECHNICIAN: NRG HPV mRNA E6/E7, SUREPATH VIAL Not Detected NOT DETECTED COMMENT NRG CULTURE, GENITAL - 11/07/17 15:04 CULTURE, GENITAL SEE NOTE NRG CULTURE, GENITAL - 11/27/17 15:44 CULTURE, GENITAL SEE NOTE NRG TEST IN QUESTION- MISSING REQUIRED INFO - 03/13/18 13:06 COMMENT NRG MISSING INFO: NRG RESOLUTION: NRG COMMENT NRG Encounters ACCT No. Visit Date/Time Discharge Status Pt. Type Provider Facility Loc./Unit Complaint [id number] 03/20/2017 10:37:56 03/20/2017 23:59:59 CLS Outpatient Ivy Esquivel [id number] 12/18/2016 14:25:41 12/18/2016 23:59:59 CLS Outpatient Ivy Esquivel [id number] 08/15/2016 14:05:41 08/15/2016 23:59:59 CLS Outpatient Walker, Ivy [id number] 05/29/2016 10:28:51 05/29/2016 23:59:59 CLS Outpatient Walker, Ivy [id number] 02/22/2016 08:54:12 02/22/2016 23:59:59 CLS Outpatient Walker, Ivy [id number] 11/18/2015 10:39:15 11/18/2015 23:59:59 CLS Outpatient Walker, Ivy [id number] 07/06/2015 15:45:12 07/06/2015 23:59:59 CLS Outpatient Walker, Ivy [id number] 03/24/2015 09:41:04 03/24/2015 23:59:59 CLS Outpatient Yvonne Lang Carolyn [id number] 01/05/2015 13:56:48 01/05/2015 23:59:59 CLS Outpatient Tao Langkecia Leon [id number] 11/22/2014 21:51:49 11/22/2014 23:59:59 CLS Outpatient Angelic Langdarío Leon [id number] 07/30/2014 12:14:31 07/30/2014 23:59:59 CLS Outpatient CASI HATFIELD [id number] 03/26/2014 11:31:02 03/26/2014 23:59:59 CLS Outpatient Yvonne Lang Carolyn [id number] 12/01/2013 10:40:22 12/01/2013 23:59:59 CLS Outpatient RickeyYvonne [id number] 11/05/2013 12:06:35 11/05/2013 23:59:59 CLS Outpatient Rickey Yvonnekecia Leon [id number] 09/30/2013 14:14:40 09/30/2013 23:59:59 CLS Outpatient Yvonne Lang Carolyn [id number] 09/03/2013 12:02:56 09/03/2013 23:59:59 CLS Outpatient CASI HATFIELD [id number] 05/22/2018 14:20:00 05/22/2018 23:59:59 CLS Outpatient DOROTA IBARRA [facility] [id number] 03/13/2018 11:40:00 Document Registration [id number] 11/27/2017 14:40:00 Document Registration [id number] 11/07/2017 14:20:00 Document Registration [id number] 05/22/2018 08:27:00 05/22/2018 11:17:00 DIS Outpatient CASI SHAIKH DO [facility] PREOP PREVIOUS SECTION [id number] 01/13/2018 09:43:00 01/13/2018 23:59:59 CLS Preadmit DOROTA IBARRA MD [facility] RAD CARE IN SECOND TRIMESTER [id number] 12/05/2017 13:50:00 12/05/2017 23:59:59 CLS Outpatient DOROTA IBARRA MD [facility] RAD NORMAL IN MULTIGRAVIDA [id number] 05/29/2018 07:30:00 PEN Preadmit CASI SHAIKH DO PREVIOUS SECTION
[2018-05-29] MEDS ORDERED: CATHETER FLUSH 10 ML SYR IV PRN (06:30)
[2018-05-29] MEDS ORDERED: FAMOTIDINE 20MG/2ML IV (PEPCID) IV ONE (06:30)
[2018-05-29] MEDS ORDERED: METOCLOPRAMIDE INJ 10 MG/2 ML (REGLAN) IV ONE (06:30)
[2018-05-29] MEDS ORDERED: CITRIC ACID/SOB CIT (BICITRA) 30 ML UDC PO ONE (06:30)
[2018-05-29] MEDS ORDERED: ceFAZolin 2 GM IV Premixed 50 ML IV NR (06:30)
[2018-05-29] MEDS ORDERED: OXYTOCIN/NORMAL SALINE 1,000 ML IV ONE (06:35)
[2018-05-29] MEDS ORDERED: PHENYLEPHRINE 100 MCG/ML 10 ML (ANESTHESIA) SYR ONE (06:35)
[2018-05-29] MEDS: LACTATED RINGERS 1,000 ML IV PRN ×2 (06:36→07:30)
[2018-05-29] MEDS ORDERED: fentaNYL INJECTION 100 MCG/2 ML AMP ONE (06:36)
[2018-05-29 06:50] LABS: BASOPHILS % (AUTO) 0 % (0-10); EOSINOPHILS # (AUTO) 0.1 10^3/uL (0.0-0.3); EOSINOPHILS % (AUTO) 1 % (0-10); HEMATOCRIT 36 % (35-52); HEMOGLOBIN 12.5 G/DL (11.5-16.0); LYMPHOCYTES # (AUTO) 3.4 X 10^3 (1.0-4.0); LYMPHOCYTES % (AUTO) 27 % (12-44); MEAN CORPUSCULAR HEMOGLOBIN 31 PG (25-34); MEAN CORPUSCULAR HGB CONC 35 G/DL (32-36); MEAN CORPUSCULAR VOLUME 89 FL (80-99); MEAN PLATELET VOLUME 10.2 FL (7.4-10.4); MONOCYTES # (AUTO) 0.9 X 10^3 (0.0-1.0); MONOCYTES % (AUTO) 7 % (0-12); NEUTROPHILS # (AUTO) 7.9 X 10^3 (1.8-7.8); NEUTROPHILS % (AUTO) 64 % (42-75); PLATELET COUNT 262 10^3/uL (130-400); RED CELL DISTRIBUTION WIDTH 13.1 % (10.0-14.5); WHITE BLOOD COUNT 12.2 10^3/uL (4.3-11.0)
[2018-05-29] MEDS ORDERED: OXYTOCIN/NORMAL SALINE 500 ML IV SCH (07:13)
--- NOTE | 2018-05-29 07:13 | History & Physical-OB ---
OB - Chief Complaint & HPI Date/Time Date of Admission: Date of Admission: May 29, 2018 at 06:05 Date seen by a Provider: May 29, 2018 Time Seen by a Provider: 07:00 Chief Complaint/History OB-Reason for Admission/Chief: Section Hx : 2 Hx Para: 1 Expected Date of Delivery: May 29, 2018 Gestational Age in Weeks: 40 Gestational Age in Days: 0 Indication for : desires repeat Admission Nurse Assessment Rev: Yes History of Labs AB + Antibody neg RI RPR NR HBsAg NR HIV NR GC neg GBS unknown Allergies and Home Medications Allergies Coded Allergies: No Known Drug Allergies (Unverified , 05/22/18) Home Medications Citalopram Hydrobromide 40 Mg Tablet, 40 MG PO DAILY, (Reported) [id number]/Iron Fumarate/FA/Dss 1 Each Tablet, 1 EACH PO DAILY, (Reported) Patient Home Medication List Home Medication List Reviewed: Yes OB - History Hx of Present Ultrasounds: Normal mid trimester US Obstetrical Complications: None Medical Complications: None Patient Past Medical History n/a Social History/Family History Alcohol Use: Denies Use Recreational Drug Use: No Immunizations Date of Influenza Vaccine: Jan 13, 2018 OB - Admission Exam Physical Exam HEENT: NCAT Heart: Rhythm Normal Lungs: Clear Abdomen: Gravid Extremities: Normal Reflexes: Normal Accelerations: Accelerations Present Decelerations: No Decelerations Short Term Variability: Present Steward/Stewardess Second Variability: Average (6-25) Contractions on Admission: 6-10 Minutes Apart Intensity: Mild Labs Laboratory Tests Test 05/29/18 06:35 Range/Units White Blood Count 12.2 H 4.3-11.0 10^3/uL Red Blood Count 4.03 L 4.35-5.85 10^6/uL Hemoglobin 12.5 11.5-16.0 G/DL Hematocrit 36 35-52 % Mean Corpuscular Volume 89 80-99 FL Mean Corpuscular Hemoglobin 31 25-34 PG Mean Corpuscular Hemoglobin Concent 35 32-36 G/DL Red Cell Distribution Width 13.1 10.0-14.5 % Platelet Count 262 130-400 10^3/uL Mean Platelet Volume 10.2 7.4-10.4 FL Neutrophils (%) (Auto) 64 42-75 % Lymphocytes (%) (Auto) 27 12-44 % Monocytes (%) (Auto) 7 0-12 % Eosinophils (%) (Auto) 1 0-10 % Basophils (%) (Auto) 0 0-10 % Neutrophils # (Auto) 7.9 H 1.8-7.8 X 10^3 Lymphocytes # (Auto) 3.4 1.0-4.0 X 10^3 Monocytes # (Auto) 0.9 0.0-1.0 X 10^3 Eosinophils # (Auto) 0.1 0.0-0.3 10^3/uL Basophils # (Auto) 0.0 0.0-0.1 10^3/uL OB - Assessment/Plan/Diagnosis Assessment Assessment: section Admission Dx 32 yo @ 40 weeks Previous Admission Status: Inpatient Order (span 2 midnights) Reason for Inpatient Admission: Repeat Plan Plan: Section CASI SHAIKH DO May 29, 2018 07:13
[2018-05-29] MEDS ORDERED: MEASLES,MUMPS,RUBELLA 1 EA INJ SC SCH (07:15)
[2018-05-29] MEDS ORDERED: TETANUS,DIPTH,PERTUSS P/F (BOOSTRIX) 0.5 ML VIAL IM SCH (07:15)
[2018-05-29] MEDS ORDERED: ONDANSETRON 4 MG/2 ML (SDV) Z0FRAN IVP PRN (07:15)
[2018-05-29] MEDS ORDERED: HYDROmorphone 2 MG/ML VIAL (DILAUDID) IV PRN (07:15)
--- NOTE | 2018-05-29 07:19 | Discharge Inst-Women's Service ---
Discharge Inst-Women's Serv Depart Medication/Instructions New, Converted or Re-Newed RX: RX on Chart Consults/Follow Up Additional Follow Up: Yes Orders/Referrals Dr. Smith in 7-[address] Scott in 6 weeks Activity Activity: Activity as Tolerated Driving Instructions: No Driving for 1 Week NO SMOKING: NO SMOKING Nothing Inside Vagina: No Douching, No [place], No Tampons Diet Discharge Diet: No Restrictions Symptoms to Report to : Bleeding Excessive, Pain Increased, Fever Over 101 Degrees F, Cramps in Feet or Legs, Questions/Concerns For Any Problems or Questions: Contact Your Physician Skin/Wound Care Infection Signs and Symptoms: Increased Redness, Foul Odor of Wound, Increased Drainage, Skin Itchy or Has a Rash, Increased Swelling, Temperature Above 101 F Operative Area Clean and Dry: Keep Incision Clean/Dry Stitches/[place]/Dermabond: Dermabond, Care of Stitches Bathing Instructions: CASI Borja DO May 29, 2018 07:19
[2018-05-29] MEDS ORDERED: ACHD5005 PO (07:21)
[2018-05-29] MEDS ORDERED: DOCU100C37 PO (07:21)
[2018-05-29] MEDS ORDERED: IBUP-844 PO (07:21)
[2018-05-29] MEDS ORDERED: BUPIVACAINE 0.5% 30 ML (SENSORCAINE) VIAL ONE (07:41)
[2018-05-29] MEDS ORDERED: ceFAZolin 2 GM IV Premixed 50 ML IV ONE (07:45)
--- NOTE | 2018-05-29 09:25 | NUR ---
Recovery completed. VSS. FF with moderate rubra flow. Transferred to room 307 per bed.
[2018-05-29] MEDS: DOCUSATE SODIUM 100 MG (COLACE) CAP PO SCH ×2 (10:20→19:37)
[2018-05-29] MEDS: KETOROLAC 30 MG/ML VIAL IVP SCH ×3 (10:21→21:49)
--- NOTE | 2018-05-29 11:38 | OPERATIVE REPORT ---
DATE OF SERVICE: 05/29/2018 PREOPERATIVE DIAGNOSES: 1. A 32-year-old G2, P1 at 40 weeks' gestation. 2. Previous section. POSTOPERATIVE DIAGNOSES: 1. A 32-year-old G2, P1 at 40 weeks' gestation. 2. Previous section. PROCEDURE: Repeat low transverse section. SURGEON: Misha Shaikh DO. ANESTHESIA: Spinal. ESTIMATED BLOOD LOSS: 600 mL. URINE OUTPUT: 150 mL of clear at the end of the procedure. FLUIDS: 1300 mL of lactated Ringer solution. FINDINGS: A live female infant, weight pending with Apgars of 7 and 9. Grossly normal appearing uterus, bilateral fallopian tubes and ovaries. INDICATIONS FOR PROCEDURE: This is a 32-year-old female with a consultation from the [facility], where she sought her care for a repeat in the office. She had been counseled in the past with about the primarily at her first visit to [facility]; however, we did review the risk of repeat with the patient in detail in the preoperative area. After all of her questions were answered pertaining to recovery time frame and restrictions, consent was obtained in the preoperative area and the patient was taken to the operating room. OPERATIVE REPORT IN DETAIL: Once in the operating room and the spinal analgesia was found to be adequate, she was placed in the supine position with leftward tilt, prepped and draped in a normal sterile fashion. A timeout was performed and anesthesia was tested. A Pfannenstiel skin incision was then made through the previously existing scar using a knife and carried down to the underlying fascia using Bovie cautery. The fascial incision was extended laterally using a Bovie cautery. Superior aspect of the fascial incision was then grasped with Brittnee clamps, tented up and dissected off the underlying rectus muscles. The inferior aspect of the fascial incision was then grasped with Brittnee clamps, tented up and dissected off the underlying rectus muscles. The rectus muscle was dissected down the midline using Negron scissors, which exposed the peritoneum, which we entered bluntly and extended using a blunt traction. The Ozzie ring retractor was then placed within the peritoneal incision, which offered excellent lateral sidewall retraction. I then made a low transverse incision to the vesicouterine peritoneum and bluntly dissected this off the lower uterine segment. I proceeded my myotomy until membranes are visualized at which point the uterine incision extended laterally and superiorly with bandage scissors. An Allis clamp was used to rupture the membranes. Meconium stained fluid was noted at the time of rupture. The infant was found in the vertex presentation. With gentle fundal pressure, the 's head was elevated up to the incision where the head was delivered. The nares and oropharynx were bulb suctioned. Anterior and posterior shoulders were delivered. was then brought out to the operative field where the cord was doubly clamped and cut and the was handed off to waiting nurses in attendance. Cord blood was collected. Three-vessel cord with intact placenta was delivered spontaneously thereafter. IV Pitocin was initiated to facilitate uterine contraction. Uterine fundus became firmer by manual massage. The uterus was then exteriorized and cleared off the endometrial clots and debris. I then proceeded with closing the uterine incision using 0 Vicryl suture in a running locked fashion. A second layer of imbricating 0 Monocryl was placed. Excellent hemostasis was noted after doing this. I then placed the uterus back in the pelvis and copiously irrigated the pelvis using normal saline. There was no active bleeding noted from any of my dissection planes. I placed Interceed antiadhesive over my low transverse incision. I proceeded with closing the peritoneum using 3-0 Vicryl suture in a running fashion. The rectus muscle was reapproximated using a 3-0 Vicryl suture in an interrupted fashion. The fascia was reapproximated using a 0 Vicryl suture in running fashion. Subcutaneous tissue was reapproximated using a 3-0 plain in an interrupted subcutaneous stitch and skin was reapproximated using a 4-0 Monocryl running subcuticular. Dermabond was applied to the incision and sterile dressing with an adhesive white tape. Lap and sponge counts were correct at the end of the procedure. Instrument count was correct as well. Two grams of Ancef were given preoperatively for infection prophylaxis. Job ID: [id number] DocumentID: [id number] Dictated Date: 05/29/2018 08:38:31 Rn Embedded Date: 05/29/2018 11:37:32 Dictated By: MISHA SHAIKH DO
[2018-05-29 12:00] VITALS: BP 134/74
--- NOTE | 2018-05-29 12:15 | NUR ---
OXYTOCIN INFUSION COMPLETED. VSS. IV TO SALINE LOCK. FLUSHES EASILY. FF U/1. VAG FLOW LT/MOD RUBRA. FAMILY AT BEDSIDE.
--- NOTE | 2018-05-29 13:15 | NUR ---
DENIES URGE TO VOID. BLADDER FILLING. HOLDING . GOOD INTERACTION NOTED.
--- NOTE | 2018-05-29 13:30 | NUR ---
TO ROOM. FF U/1. VAG FLOW LT RUBRA AT THIS TIME. REQUESTED PAIN MEDICATION BUT WANTS TO EAT AND TAKE LORTAB INSTEAD OF DILAUDID.
--- NOTE | 2018-05-29 13:43 | NUR ---
RT NOTIFIED OF NEED FOR INCENTIVE SPIROMETRY INITIATION AND TEACHING.
[2018-05-29] MEDS: HYDROcodone/APAP 5 MG/325 MG (LORTAB) TAB PO PRN ×2 (14:35→19:37)
--- NOTE | 2018-05-29 14:35 | NUR ---
LORTAB 5 MG 2 TABS P.O. FOR C/O ABD PAIN RATED 7/10. PREPARING TO GET UP TO THE BATHROOM WHEN VISITORS ARRIVED AND PT WANTING TO WAIT FOR A FEW MINUTES.
--- NOTE | 2018-05-29 15:00 | NUR ---
UP TO THE BATHROOM. VOIDED 300 CC BLOOD TINGED URINE. PERICARE WITH PAD/UNDERWEAR APPLIED. AMBULATED WELL WITHOUT C/O DIZZINESS. FAMILY AT BEDSIDE.
[2018-05-29 16:07] VITALS: BP 139/72
[2018-05-29 19:37] VITALS: BP 129/85
[2018-05-29] MEDS: CATHETER FLUSH 10 ML SYR IV SCH ×2 (21:49→23:45)
[2018-05-29] MEDS ORDERED: SIMETHICONE 80 MG (MYLICON) CHEW ONE (23:43)
[2018-05-29 23:48] VITALS: BP 129/83
[2018-05-29] MEDS: SIMETHICONE 80 MG (MYLICON) CHEW PO PRN (23:48)
[2018-05-30] MEDS: HYDROcodone/APAP 5 MG/325 MG (LORTAB) TAB PO PRN ×4 (01:57→21:45)
[2018-05-30 04:12] VITALS: BP 136/88
[2018-05-30] MEDS: KETOROLAC 30 MG/ML VIAL IVP SCH (04:12)
[2018-05-30] MEDS: CATHETER FLUSH 10 ML SYR IV SCH (04:12)
[2018-05-30 05:51] LABS: BASOPHILS % (AUTO) 0 % (0-10); EOSINOPHILS # (AUTO) 0.2 10^3/uL (0.0-0.3); EOSINOPHILS % (AUTO) 1 % (0-10); HEMATOCRIT 32 % (35-52); HEMOGLOBIN 10.9 G/DL (11.5-16.0); LYMPHOCYTES # (AUTO) 3.8 X 10^3 (1.0-4.0); LYMPHOCYTES % (AUTO) 28 % (12-44); MEAN CORPUSCULAR HEMOGLOBIN 31 PG (25-34); MEAN CORPUSCULAR HGB CONC 35 G/DL (32-36); MEAN CORPUSCULAR VOLUME 89 FL (80-99); MONOCYTES # (AUTO) 0.9 X 10^3 (0.0-1.0); MONOCYTES % (AUTO) 6 % (0-12); NEUTROPHILS # (AUTO) 8.9 X 10^3 (1.8-7.8); NEUTROPHILS % (AUTO) 65 % (42-75); PLATELET COUNT 219 10^3/uL (130-400); WHITE BLOOD COUNT 13.7 10^3/uL (4.3-11.0)
--- NOTE | 2018-05-30 07:03 | Anesthesia-Regional Post-Op ---
Regional Patient Condition Mental Status: Alert, Oriented x3 Circulation: Same as Pre-Op Headache: Absent Sensation: Full Recovery Motor Block: Absent Post Op Complications Complications None Follow Up Care/Instructions Patient Instructions None needed. Anesthesia/Patient Condition Patient is doing well, no complaints, stable vital signs, no apparent adverse anesthesia problems. No complications reported per nursing. [place] [facility] [place]: Yes CAITIE DAVIS CRNA May 30, 2018 07:03
--- NOTE | 2018-05-30 07:57 | Postpartum Progress Note ---
Note Note Day # 1 Subjective: Patient is without complaints. Ambulating, voiding. Tolerating a regular diet without nausea or vomiting. Normal lochia. Pain is well controlled with oral pain medications. Objective: Physical Exam: General - Alert and oriented, no apparent distress Abdomen - Soft, appropriately tender to palpation, non-distended, fundus firm at umbilicus Extremities - no edema, negative Sonia's bilaterally Incision- c/d/i Assessment: POD 1 RLTCS Acute blood loss anemia Plan: Routine care. Encourage breast feeding. Encourage ambulation. Ferrous sulfate supplementation. Plan for discharge tomorrow Vitals - Labs Vital Signs - I&O Vital Signs Date Time Temp Pulse Resp B/P (MAP) Pulse Ox O2 Delivery O2 Flow Rate FiO2 05/30/18 04:12 98.1 84 18 136/88 (104) 98 Room Air 05/29/18 23:48 98.0 83 18 129/83 (98) 98 Room Air 05/29/18 19:37 97.9 87 16 129/85 (100) 99 Room Air 05/29/18 16:07 98.4 95 16 139/72 (94) 97 Nasal Cannula 05/29/18 12:00 97.6 85 16 134/74 (94) 98 Room Air I & O 05/30/18 07:00 Intake Total 3090 ml Output Total 1650 ml Balance 1440 ml Labs Laboratory Tests 05/30/18 05:32: White Blood Count 13.7H, Red Blood Count 3.53L, Hemoglobin 10.9L, Hematocrit 32L , Mean Corpuscular Volume 89, Mean Corpuscular Hemoglobin 31, Mean Corpuscular Hemoglobin Concent 35, Red Cell Distribution Width 13.0, Platelet Count 219, Mean Platelet Volume 10.0, Neutrophils (%) (Auto) 65, Lymphocytes (%) (Auto) 28 , Monocytes (%) (Auto) 6, Eosinophils (%) (Auto) 1, Basophils (%) (Auto) 0, Neutrophils # (Auto) 8.9H, Lymphocytes # (Auto) 3.8, Monocytes # (Auto) 0.9, Eosinophils # (Auto) 0.2, Basophils # (Auto) 0.0 CASI SHAIKH DO May 30, 2018 07:57
--- NOTE | 2018-05-30 08:00 | NUR ---
A.M. ASSESSMENT COMPLETED. VSS. . GOOD INTERACTION NOTED.
[2018-05-30] MEDS: IBUPROFEN 600 MG (MOTRIN) TAB PO SCH ×3 (09:26→21:14)
[2018-05-30] MEDS: DOCUSATE SODIUM 100 MG (COLACE) CAP PO SCH ×2 (09:26→21:13)
[2018-05-30] MEDS: SIMETHICONE 80 MG (MYLICON) CHEW PO PRN ×3 (09:27→22:33)
[2018-05-30 09:30] VITALS: BP 123/80
--- NOTE | 2018-05-30 09:30 | NUR ---
LORTAB 2 TABS P.O. FOR C/O ABD PAIN. ENCOURAGED AMBULATION.
--- NOTE | 2018-05-30 12:00 | NUR ---
STATES FEELING BETTER. FAMILY AT BEDSIDE. CARING FOR IN ROOM.
[2018-05-30 13:30] VITALS: BP 132/86
--- NOTE | 2018-05-30 14:00 | NUR ---
UP TO SHOWER. FAMILY IN ROOM CARING FOR .
--- NOTE | 2018-05-30 15:00 | NUR ---
AMBULATING IN HALLWAY. MOVES WELL.
[2018-05-30 17:00] VITALS: BP 137/87
--- NOTE | 2018-05-30 18:30 | NUR ---
CONTINUES TO DO WELL. CARING FOR INFANT IN ROOM. PT HAS AMBULATED IN THE LI 4 TIMES TODAY. VOIDING LARGE AMOUNTS OF URINE.
[2018-05-30 21:10] VITALS: BP 125/68
[2018-05-31 03:15] VITALS: BP 127/58
--- NOTE | 2018-05-31 03:35 | NUR ---
PT SITTING UP . LORTAB AND MOTRIN ADMINISTERED. WILL RETURN FOR VS.
[2018-05-31] MEDS: IBUPROFEN 600 MG (MOTRIN) TAB PO SCH ×3 (03:36→14:15)
[2018-05-31] MEDS: HYDROcodone/APAP 5 MG/325 MG (LORTAB) TAB PO PRN ×3 (03:36→14:15)
--- NOTE | 2018-05-31 08:14 | Postpartum Progress Note ---
Note Note Day # 2 Subjective: Patient is without complaints. Ambulating, voiding. Tolerating a regular diet without nausea or vomiting. Normal lochia. Pain is well controlled with oral pain medications. Objective: Physical Exam: General - Alert and oriented, no apparent distress Abdomen - Soft, appropriately tender to palpation, non-distended, fundus firm at umbilicus Extremities - no edema, negative Sonia's bilaterally Incision- c/d/i Assessment: POD 2 RLTCS Acute blood loss anemia Plan: Routine care. Encourage breast feeding. Encourage ambulation. Ferrous sulfate supplementation. Plan for discharge today Vitals - Labs Vital Signs - I&O Vital Signs Date Time Temp Pulse Resp B/P (MAP) Pulse Ox O2 Delivery O2 Flow Rate FiO2 05/31/18 03:15 98.3 84 18 127/58 (81) 97 Room Air 05/30/18 21:10 97.0 104 18 125/68 (87) 97 Room Air 05/30/18 17:00 98.2 83 18 137/87 (104) 98 Room Air 05/30/18 13:30 97.9 82 18 132/86 (101) 99 Room Air 05/30/18 09:30 97.6 91 18 123/80 (94) 99 Room Air I & O 05/31/18 07:00 Intake Total 1620 ml Output Total 1800 ml Balance -180 ml CASI SHAIKH DO May 31, 2018 08:14
[2018-05-31 09:48] VITALS: BP 128/72
--- NOTE | 2018-05-31 09:48 | NUR ---
initial shift assessment completed, see interventions for further. abd incision CHATO with Dermabond intact @ side. incision edges well approximated. POC reviewed, states understanding.
[2018-05-31] MEDS: DOCUSATE SODIUM 100 MG (COLACE) CAP PO SCH (09:54)
--- NOTE | 2018-05-31 14:15 | NUR ---
dismissal instructions given, verbalizes understanding. reviewed dismissal medications administrations schedule and dosage. signature page signed, placed on chart. instructed to schedule follow up appointments.
--- NOTE | 2018-05-31 15:05 | NUR ---
pt dismissed to private vehicle with staff and family members @ side. secured in rear facing car seat. pt stable with no sx's of distress noted.
--- NOTE | 2018-06-03 11:04 | Physician Query-Final Dx ---
Final Diagnosis Give Final Diagnosis Please give Final Diagnosis ALEX SPARKS Jun 03, 2018 11:04
== END 2018-05-31 15:05 | disposition home or self-care (01) | DRG 787 ==
LOC: LDRP 06:05
PROVIDERS: ADMIT Obstetrics & Gynecology; ATTEND Obstetrics & Gynecology
PROC: 10D00Z1 Extraction of Products of Conception, Low, Open Approach (ICD-10-PCS; principal; 2018-05-29 07:14)
DX: O34.211 Maternal care for low transverse scar from previous cesarean delivery (principal); O90.81 Anemia of the puerperium; D62 Acute posthemorrhagic anemia; O77.0 Labor and delivery complicated by meconium in amniotic fluid; Z3A.40 40 weeks gestation of pregnancy; Z37.0 Single live birth
CPT/HCPCS: 36415; 85025; 86850; 86900; 86901; 88307; 90715; 94664